=== PATIENT | male | born 1985 | race Caucasian/White ===

== ENCOUNTER 2019-10-19 06:07 | Observation (INO) | payer SELFPAY ==
[2019-10-19] VITALS (11 sets, daily range): BP systolic 128–173; BP diastolic 71–126; PULSE 65–105; RESP 14–23; TEMP 36.4–36.8; O2SAT 92–97; BMI 34.2
--- NOTE | 2019-10-19 06:35 | ED_ITS ---
HPI - Abdominal Pain General: Chief Complaint: Abdominal Pain Stated Complaint: abd pain Time Seen by Provider: 10/19/19 06:16 Review of Systems General: Reports: 10 or more systems reviewed and unremarkable except in HPI and below PFSH ED PFSH: Statuses (acute, chronic, etc) shown below reflect problem list status as previously entered and may not be historically accurate Social History Smoking and tobacco status: current every day smoker Physical Exam Const: COMMON NORMALS: no apparent distress, average body habitus, oriented x3, no limitations, healthy appearing, alert and well nourished HENMT: COMMON NORMALS: normocephalic, head/scalp atraumatic, hearing grossly normal bilaterally, external ears normal, EAC's normal, TM's normal bilaterally, external nose normal, nasal mucous membranes and turbinates normal, moist oral mucous membranes, oropharynx normal, dentition normal and gingiva normal HEAD & SCALP: normocephalic and atraumatic NOSE: external nose normal and nasal mucous membranes and turbinates normal EXTERNAL EAR: Yes external ears normal EXTERNAL AUDITORY CANAL: EAC's normal TYMPANIC MEMBRANE: TM's normal bilaterally Eye: COMMON NORMALS: PERRL, EOMs intact bilaterally, conjunctivae normal, no scleral icterus, no papilledema, normal visual kuhn by confrontation and fundi normal bilaterally CONJUNCTIVA: Yes conjunctivae normal PUPIL: Yes PERRL DIRECT OPHTHALMOSCOPY: Yes no papilledema and Yes fundi normal bilaterally Neck/C-Spine: COMMON NORMALS: full ROM, no lymphadenopathy, supple, no meningeal signs, no JVD, thyroid normal and no carotid bruits THYROID: thyroid normal Chest: COMMONS NORMALS: inspection of chest normal and palpation of chest normal Resp: COMMON NORMALS: normal respiratory effort, no retractions, no use of accessory muscles, clear to auscultation bilaterally and percussion normal AUSCULTATION: clear to auscultation bilaterally PERCUSSION: percussion normal Cardio: COMMON NORMALS: no JVD, regular rate, regular rhythm, S1 normal heart sound, S2 normal heart sound, no gallops, no clicks, no murmurs, no rub and peripheral pulses 2+ throughout RATE: regular rate RHYTHM: regular rhythm HEART SOUNDS: S1 normal and S2 normal PERIPHERAL PULSES: pulses 2+ throughout GI: COMMON NORMALS: normal to inspection, nondistended, normoactive bowel sounds, soft to palpation, no hepatosplenomegaly, no masses and no bruits; negative for non-tender (Midepigastric tenderness to palpation) PALPATION: Yes soft, Yes tender Details: other (Epigastric) and Yes no hepatosplenomegaly : COMMON NORMALS: Yes no CVA tenderness BLADDER/KIDNEY EXAM: Yes no CVA tenderness Back/Pelvis: COMMON NORMALS: no CVA tenderness, thoracic and lumbar spine normal to inspection, no thoracic nor lumbar tenderness, thoraco-lumbar ROM normal and straight leg raise negative bilaterally Extremity: COMMON NORMALS: normal to inspection, full ROM, normal capillary refill, no joint enlargement, no clubbing, cyanosis or edema, no calf tenderness and no pedal edema Neuro: COMMON NORMALS: oriented x3 SENSORIUM/ORIENTATION: Yes alert MENINGEAL SIGNS: Yes no meningeal signs Skin: COMMON NORMALS: no rashes or lesions noted, no wounds, skin turgor normal, no jaundice, no petechiae and no mottling GENERAL SKIN EXAM: no r ashes or lesions noted and turgor normal Procedures Intubation Mg Given: 20 Mg Given: 200 Course Vital Signs: Vital signs: Vital Signs Temperature 97.8 F 10/19/19 06:13 Pulse Rate 105 H 10/19/19 06:13 Respiratory Rate 16 10/19/19 08:02 Blood Pressure 142/103 10/19/19 08:02 Pulse Oximetry 96 10/19/19 08:02 MDM - Abdominal Pain Lab Data: Labs: Lab Results 10/19/19 10/19/19 Range/Units 06:25 06:25 WBC 9.6 (4.0-10.0) 10^3/ uL RBC 5.79 H (4.1-5.3) 10^6/u L Hgb 17.0 H (11.7-16.6) g/dL Hct 49.4 (42.0-52.0) % MCV 85.3 (80-94) fL MCH 29.4 (28.0-34.0) pg MCHC 34.4 (30.0-36.0) g/dL RDW 12.9 (12.1-15.1) % Plt Count 229 (130-400) 10^3/c mm MPV 9.6 (7.4-10.4) fL Neut % (Auto) 57.3 % Lymph % (Auto) 35.6 % Ferry % (Auto) 4.3 % Eos % (Auto) 1.9 % Baso % (Auto) 0.5 % Neut # (Auto) 5.5 (1.8-7.7) 10^3/u L Lymph # (Auto) 3.4 (0.8-4.8) 10^3/u L Ferry # (Auto) 0.4 (0.2-0.9) 10^3/u L Eos # (Auto) 0.2 (0.0-0.8) 10^3/u L Baso # (Auto) 0.1 (0.0-0.1) 10^3/u L Nucleated RBC % (a uto) 0 % Nucleated RBCs # 0.0 /100WBC Sodium 132 L (136-145) mmol/L Potassium 3.7 (3.5-5.1) mmol/L Chloride 95 L (98-107) mmol/L Carbon Dioxide 22 (22-29) mmol/L Anion Gap 18.7 (5-19) BUN 15 (6-20) mg/dL Creatinine 0.7 (0.7-1.2) mg/dL GFR Calculation 128.3 (90-130) mL/min Glucose 368 H (74-109) mg/dL Calcium 9.6 (8.6-10.0) mg/Dl Total Bilirubin 0.5 (0.15-1.2) mg/dL AST 12 (0-40) U/L ALT 20 (0-41) U/L Alkaline Phosphata se 115 (40-130) IU/L Total Protein 7.2 (6.6-8.7) g/dL Albumin 4.5 (3.5-5.2) g/dL Globulin 2.7 (1.3-4.6) g/dL Lipase 551 H (13-60) U/L Discharge Plan Discharge Patient Disposition: Home, Self-Care Clinical Impression: Pancreatitis Qualifiers: Chronicity: acute Pancreatitis type: idiopathic Acute pancreatitis complication: no infection or necrosis Qualified Code(s): K85.00 - Idiopathic acute pancreatitis without necrosis or infection Abdominal pain Qualifiers: Abdominal location: left upper quadrant Qualified Code(s): R10.12 - Left upper quadrant pain Condition: Stable Prescriptions: No Action citalopram 40 mg Tablet 40 mg PO DAILY RF: 0 lisinopril 10 mg Tablet 10 mg PO DAILY RF: 0 Referrals: Rah Link DO [Primary Care Provider] - Patient Instructions: Cholecystitis (ED), Abdominal Pain (ED) Coding Level of Care Code ED Strap Buckler Machine for [facility] Fwd Exam Problem Focused
[2019-10-19 06:37] LABS: Basophils # 0.1 10^3/uL (0.0-0.1); Basophils % 0.5 %; Eosinophils # 0.2 10^3/uL (0.0-0.8); Eosinophils % 1.9 %; Hematocrit 49.4 % (42.0-52.0); Lymphocytes # 3.4 10^3/uL (0.8-4.8); Lymphocytes % 35.6 %; Mean Corpuscular HGB Conc 34.4 g/dL (30.0-36.0); Mean Corpuscular Hemoglobin 29.4 pg (28.0-34.0); Mean Corpuscular Volume 85.3 fL (80-94); Mean Platelet Volume 9.6 fL (7.4-10.4); Monocytes # 0.4 10^3/uL (0.2-0.9); Monocytes % 4.3 %; Neutrophils # 5.5 10^3/uL (1.8-7.7); Neutrophils % 57.3 %; Nucleated Red Blood Cells % 0 %; Platelet Count 229 10^3/cmm (130-400); Red Blood Count 5.79 10^6/uL (4.1-5.3); Red Cell Distribution Width 12.9 % (12.1-15.1); White Blood Count 9.6 10^3/uL (4.0-10.0)
[2019-10-19 06:44] LABS: Alanine Aminotransferase 20 U/L (0-41); Albumin Level 4.5 g/dL (3.5-5.2); Alkaline Phosphatase 115 IU/L (40-130); Anion Gap 18.7 (5-19); Aspartate Amino Transferase 12 U/L (0-40); Blood Urea Nitrogen 15 mg/dL (6-20); Calcium 9.6 mg/Dl (8.6-10.0); Carbon Dioxide 22 mmol/L (22-29); Chloride 95 mmol/L (98-107); Globulin 2.7 g/dL (1.3-4.6); Glomerular Filtration Rate 128.3 mL/min (90-130); Glucose 368 mg/dL (74-109); Potassium 3.7 mmol/L (3.5-5.1); Sodium 132 mmol/L (136-145); Total Bilirubin 0.5 mg/dL (0.15-1.2); Total Protein 7.2 g/dL (6.6-8.7)
[2019-10-19 07:02] LABS: Lipase 551 U/L (13-60)
--- NOTE | 2019-10-19 07:06 | CT_ITS ---
WS: [id number] CT ABDOMEN AND PELVIS WITH CONTRAST HISTORY: Central abdominal pain with nausea and vomiting and diarrhea. TECHNIQUE: Imaging performed of the abdomen and pelvis with IV contrast. Single phase imaging of the abdomen. Coronal and sagittal reformats are submitted. All CT scans at [facility] use at least one of these dose optimization techniques: automated exposure control; mA and/or kV adjustment per patient size (includes targeted exams where dose is matched to clinical indication); or iterativ e reconstruction. IV CONTRAST: Omnipaque 300; 95 mL IV. Oral contrast: No DLP: 1774.63 mGy.cm COMPARISON: 12/20/2017 Lower thorax: Linear atelectasis at the lingula. Heart is normal size. Small hiatal hernia. Liver/biliary system: Mild diffuse hepatic steatosis. Liver is slightly enlarged. No mass or intrahep atic dilatation. Gallbladder: Normal. Pancreas: Mild inflammation around the pancreatic head and uncinate process. No pancreatic head mass. Pancreatic duct is normal. Spleen: Normal. Adrenal glands: Normal. Right kidney: RIGHT kidney is normal size as compared to the prior examinations. No hydronephrosis Left kidney: Normal size kidney. No perinephric stranding or obstruction. No renal stone or mass. Aorta: No aneurysm or significant atherosclerosis. Lymphadenopathy: None. Free fluid: None. GI tract: The appendix is normal. No GI tract obstruction. No evidence for acute diverticulitis. Abdominal wall: No defects, mass or hernia. Pelvis: Urinary bladder is well distended. 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 Bones: Schmorl's node at L3. CT/CT abdomen pelvis w con* [id number] IMPRESSION: 1. Mild inflammation of the pancreatic head. Consider mild acute pancreatitis. Duodenum is closely associated with the pancreatic head and duodenitis should be considered in the differential. 2. No bile duct dilatation. 3. Mild hepatic steatosis and hepatomegaly. 4. No renal obstruction or appendicitis.
--- NOTE | 2019-10-19 07:06 | US_ITS ---
WS: [id number] RIGHT UPPER QUADRANT ULTRASOUND HISTORY: biliary colic COMPARISON: 12/19/2017 Liver: 20.5 cm in length. Heterogeneity and decreased attenuation throughout the liver. Liver is enla rged. No mass or bile duct dilatation. Gallbladder: Normally distended with no stones or wall thickening. No pericholecystic fluid. CBD: 5.4 mm Pancreas: Not visualized. Right kidney: 15.2 cm in length. RIGHT kidney is slightly enlarged but there is no obstruction or per inephric fluid or stranding. Aorta and IVC: Not well visualized. No ascites. US/US gall bladder [id number] IMPRESSION: 1. Normal gallbladder. 2. Poorly visualized pancreas. 3. Moderate hepatomegaly and hepatic steatosis.
[2019-10-19] MEDS: ondansetron 2 mg/ML SDV 2 mL 4 MG IVP (07:14)
[2019-10-19] MEDS: morphine 4 mg/mL SDV 1 mL IVP ×2 (07:15→12:22)
--- NOTE | 2019-10-19 07:24 | PC.NURSE ---
Ultrasound in room
[2019-10-19] MEDS: iohexol 300 mg/mL 100 mL Btl IV (07:49)
--- NOTE | 2019-10-19 08:13 | PC.NURSE ---
Pt placed in a gown, allergy band applied.
--- NOTE | 2019-10-19 08:16 | PC.NURSE ---
DR Mayorga, Hospitalist, in room
--- NOTE | 2019-10-19 08:32 | PC.NURSE ---
Ice chips to pt, per Dr. Melgar's okay. Pt informed about reason for delay with admission. No needs at this time. Pt resting in bed.
--- NOTE | 2019-10-19 08:38 | P.HP_ITS ---
Providers/Chief Complaint Primary Care Provider: Rah Link DO Chief Complaint: abd pain History of Present Illness Jarred Dangelo is a 34 year old male that presented to the emergency department today for abdominal pain. Patient reported increasing abdominal pain over the past 2 to 3 days. He stated he was been having nausea, vomiting and diarrhea for the past 3 days that became severely worse last night. He stated that the abdominal pain is located in the center of his abdomen and radiates to his back. He reports several episodes of vomiting, several episodes of diarrhea, has been drinking fluids but unable to keep up. Patient reported that he is a diabetic, not on any medications currently, had been on Byetta and recently stopped taking the medication within the past week. Patient reports that he is on oral water, no other sick contacts, family members at home have not been sick. 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 Patient was seen and evaluated in the emergency department noted to have pancreatitis and admitted for further evaluation and treatment. Review of Systems Const: Denies: fever or chills Eyes: Denies: change in vision ENMT: Denies: nasal congestion Card: Denies: chest pain, palpitations or edema Resp: Denies: shortness of breath, productive cough or coughing up blood GI: Reports: abdominal pain, nausea, vomiting, diarrhea and constipation; Denies: blood in stool or black tarry stool : Denies: painful urination or blood in urine Musc: Denies: extremity pain or muscle cramps Skin/Breast: Denies: rash or new lesion Neuro: Denies: headache or dizziness Psych: Denies: anxiety or depression Endo: Denies: excessive urination or hot flashes Olvin/Lymph: Denies: easy bruising or easy bleeding Medications/Allergies Home Medications Medication Instructions Recorded Confirmed Last Taken Type citalopram 40 mg PO DAILY 10/19/19 10/19/19 10/19/19 History epinephrine [EpiPen 2-Sha] See Rx Instructions .ROUTE .COMPLEX 10/19/19 10/19/19 Unknown History exenatide [Byetta] 10 mcg SUBCUT BID 10/19/19 10/19/19 Unknown History lisinopril 10 mg PO DAILY 10/19/19 10/19/19 10/19/19 History Allergies Allergy/AdvReac Type Severity Reaction Status Date / Time No Known Allergies Allergy Verified 10/19/19 06:18 PFSH Acute PFSH: Statuses (acute, chronic, etc) shown below reflect problem list status as previously entered and may not be historically accurate Medical History (Updated 10/19/19 @ 09:00 by Chaparrita Mayorga DO) Depression (Acute) Diabetes mellitus type 2 in obese (Acute) Hypertension (Acute) Surgical History (Updated 10/19/19 @ 08:43 by Chaparrita Mayorga DO) History of incision and drainage (Acute) Left forearm 2017 Hx of cardiac cath (Acute) 02/2014 Family History (Updated 10/19/19 @ 08:43 by Chaparrita Mayorga DO) Father Diabetes Mother Diabetes Social History (Updated 10/19/19 @ 08:43 by Chaparrita Mayorga DO) Smoking and tobacco status: heavy tobacco smoker Substance/Drug Use: former Vitals/I&O/Wt Last Vital Signs Temp 97.8 F 10/19/19 06:13 Pulse 105 H 10/19/19 06:13 Resp 16 10/19/19 08:02 BP 142/103 10/19/19 08:02 Pulse Ox 96 10/19/19 08:02 Weight last 48 hrs Weight 117.934 kg Physical Exam Const: COMMON NORMALS: oriented x3 and alert GENERAL APPEARANCE: cooperative ORIENTATION/CONSCIOUSNESS: Yes awake, Yes oriented to person, Yes oriented to place and Yes oriented to time HENMT: COMMON NORMALS: normocephalic and head/scalp atraumatic HEAD & SCALP: normocephalic and atraumatic Eye: COMMON NORMALS: PERRL PUPIL: Yes PERRL Resp: COMMON NORMALS: normal respiratory effort and clear to auscultation bilaterally EFFORT & INSPECTION: Yes able to speak in complete sentences AUSCULTATION: clear to auscultation bilaterally, no rhonchi and no wheezes Cardio: COMMON NORMALS: regular rate, regular rhythm and no murmurs RATE: regular rate RHYTHM: regular rhythm GI: INSPECTION: No abdominal distension AUSCULTATION: Yes normoactive bowel sounds PALPATION: Yes soft and Yes tender Details: other (epigastric region) : COMMON NORMALS: Yes no CVA tenderness BLADDER/KIDNEY EXAM: Yes no CVA tenderness Back/Pelvis: COMMON NORMALS: no CVA tenderness Extremity: COMMON NORMALS: no clubbing, cyanosis or edema and no calf tenderness Neuro: COMMON NORMALS: oriented x3, CN's II-XII intact bilaterally, moves all extremities and no focal motor deficits SENSORIUM/ORIENTATION: Yes alert, Yes oriented to person, Yes oriented to place and Yes oriented to time SPEECH: speech normal Psych: COMMON NORMALS: mental status grossly normal and cooperative Skin: COMMON NORMALS: no rashes or lesions noted GENERAL SKIN EXAM: no rashes or lesions noted Data Imaging^: US: My impression: Reviewed, report as read by radiologist: Radiologist's impression: IMPRESSION: 1. Normal gallbladder. 2. Poorly visualized pancreas. 3. Moderate hepatomegaly and hepatic steatosis. CT Abd/Pel: Radiologist's impression: IMPRESSION: 1. Mild inflammation of the pancreatic head. Consider mild acute pancreatitis. Duodenum is closely associated with the pancreatic head and duodenitis should be considered in the differential. 2. No bile duct dilatation. 3. Mild hepatic steatosis and hepatomegaly. 4. No renal obstruction or appendicitis. A&P Assessment and plan (1) Pancreatitis: Placed on observation N.p.o. status with ice chips Aggressive IV fluids Ultrasound of the gallbladder and CT scan of the abdomen and pelvis as noted above. 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 Recently on beta which was likely contributing to episode of pancreatitis, he has discontinued due to side effects We will place on sliding scale insulin at this time Status: Acute Code(s): E11.69 - Type 2 diabetes mellitus with other specified complication; E66.9 - Obesity, unspecified (3) Hypertension: Continue home lisinopril Status: Acute Qualifiers: Hypertension type: essential hypertension Qualified Code(s): I10 - Essential (primary) hypertension Code(s): I10 - Essential (primary) hypertension (4) Depression: Continue home citalopram Status: Acute Qualifiers: Depression Type: unspecified Qualified Code(s): F32.9 - Major depressive disorder, single episode, unspecified Code(s): F32.9 - Major depressive disorder, single episode, unspecified Attestations Medical Necessity Statement*: Observation admission due to pancreatitis with poorly controlled diabetes mellitus. Expected stay less than 2 midnights Coding Level of Care Code Acute Centrifugal Chiller Technician for [facility] Fwd Diagnoses Pancreatitis K85.00 Acute pancreatitis complication: no infection or necrosis Chronicity: acute Pancreatitis type: idiopathic Diabetes mellitus type 2 in obese E11.69; E66.9 Hypertension I10 Hypertension type: essential hypertension Depression F32.9 Depression Type: unspecified
--- NOTE | 2019-10-19 09:26 | PC.NURSE ---
Fan placed in pt's room per pt's request. Pt resting in bed, no needs at this time.
[2019-10-19] MEDS: docusate sodium 100 mg Capsule PO (10:11)
[2019-10-19] MEDS: sodium chloride 0.9% 1,000 ML 100 ML IV (10:14)
[2019-10-19 11:01] LABS: Estmated Average Glucose 246; Hemoglobin A1C 10.2 % (4.0-6.0)
[2019-10-19 11:36] LABS: Glucose Point of Care 283 mg/dL (70-110)
[2019-10-19 17:02] LABS: Glucose Point of Care 219 mg/dL (70-110)
[2019-10-19] MEDS: insulin glargine 100 units/1 mL 10 UNIT SUBCUT (21:33)
[2019-10-19 21:34] LABS: Glucose Point of Care 237 mg/dL (70-110)
[2019-10-20] VITALS: BP 144/88; PULSE 72; RESP 16; TEMP 36.8; O2SAT 95
[2019-10-20 00:43] VITALS: PULSE 79; O2SAT 95
[2019-10-20 04:00] VITALS: BP 135/87; PULSE 72; RESP 18; TEMP 36.7; O2SAT 94
[2019-10-20 05:49] LABS: Alanine Aminotransferase 18 U/L (0-41); Albumin Level 4.1 g/dL (3.5-5.2); Alkaline Phosphatase 107 IU/L (40-130); Anion Gap 16.3 (5-19); Aspartate Amino Transferase 13 U/L (0-40); Blood Urea Nitrogen 12 mg/dL (6-20); Calcium 9.5 mg/Dl (8.6-10.0); Carbon Dioxide 24 mmol/L (22-29); Chloride 99 mmol/L (98-107); Globulin 2.7 g/dL (1.3-4.6); Glomerular Filtration Rate 189.2 mL/min (90-130); Glucose 268 mg/dL (74-109); Potassium 3.3 mmol/L (3.5-5.1); Sodium 136 mmol/L (136-145); Total Bilirubin 0.7 mg/dL (0.15-1.2); Total Protein 6.8 g/dL (6.6-8.7)
[2019-10-20] MEDS: sodium chloride 0.9% 1,000 ML 100 ML IV (05:50)
[2019-10-20 07:02] LABS: Glucose Point of Care 246 mg/dL (70-110)
[2019-10-20 07:31] VITALS: BP 137/93; PULSE 76; RESP 18; TEMP 36.7; O2SAT 95
[2019-10-20 07:46] VITALS: PULSE 76; O2SAT 95
[2019-10-20] MEDS: citalopram 20 mg Tablet 40 MG PO (08:27)
[2019-10-20] MEDS: lisinopril 10 mg Tablet PO (08:27)
--- NOTE | 2019-10-20 11:24 | P.DS_ITS ---
Discharge Providers Date of Admission: 10/19/19 08:02 Date of Discharge: 10/20/19 Attending Provider at Admission: Chaparrita Mayorga MD Attending Provider at Discharge: Chaparrita Mayorga MD Primary Care Provider: DO Rafael Mendez Diagnoses at Discharge Discharge Diagnosis (1) Pancreatitis: Status: Acute Problem details: Abdominal pain and nausea resolved Believed to be secondary to Byetta Qualifiers: Acute pancreatitis complication: no infection or necrosis Chronicity: acute Pancreatitis type: idiopathic Qualified Code(s): K85.00 - Idiopathic acute pancreatitis without necrosis or infection (2) Diabetes mellitus type 2 in obese: Status: Acute Problem details: Unable to take insulin due to occupational reasons Patient would like to avoid other injectable medications Intolerant of metformin in the past Due to history of pancreatitis will be cautious with medications Discharge to home with glipizide 5 mg daily and increase as directed by primary care provider for further blood glucose control (3) Hypertension: Status: Acute Problem details: Continue lisinopril 10 mg daily Qualifiers: Hypertension type: essential hypertension Qualified Code(s): I10 - Essential (primary) hypertension (4) Depression: Status: Acute Problem details: Continue home citalopram 40 mg daily Qualifiers: Depression Type: unspecified Qualified Code(s): F32.9 - Major depressive disorder, single episode, unspecified Reason for Visit Reason for Visit: Reason For Visit: Pancreatitis Hospital Course Hospital Course: Patient was seen and evaluated in the emergency department due to abdominal pain with nausea and vomiting. He had CT scan of the abdomen performed and labs performed which showed concern for acute pancreatitis. Patient reported that he had been on Byetta recently and recently stopped this medication due to intolerance.Patient was kept n.p.o. given IV fluids and continued to show gradual improvement. On date of discharge patient stated that he was no longer having any abdominal pain or nausea and requested oral diet. Pain was started on a clear liquid diet and gradually increase to a full liquid diet, low-fat. Patient tolerated this well without any recurrence of abdominal pain, no nausea or vomiting. Discussed with patient on date of discharge to continue with a low-fat diet and gradually increase diet as tolerated and the need for close follow-up with primary care provider to continue to monitor blood sugars closely. Patient verbalized understanding and agreed with plan Discharge Summary: Hospital course as above. Plan for discharge to home with close follow-up with primary care provider in 3 to 5 days Physical Exam Const: COMMON NORMALS: oriented x3 and alert GENERAL APPEARANCE: cooperative ORIENTATION/CONSCIOUSNESS: Yes awake, Yes oriented to person, Yes oriented to place and Yes oriented to time HENMT: COMMON NORMALS: normocephalic and head/scalp atraumatic HEAD & SCALP: normocephalic and atraumatic Eye: COMMON NORMALS: PERRL PUPIL: Yes PERRL Resp: COMMON NORMALS: normal respiratory effort and clear to auscultation bilaterally EFFORT & INSPECTION: Yes able to speak in complete sentences AUSCULTATION: clear to auscultation bilaterally, no rhonchi and no wheezes Cardio: COMMON NORMALS: regular rate, regular rhythm and no murmurs RATE: regular rate RHYTHM: regular rhythm GI: COMMON NORMALS: soft to palpation INSPECTION: No abdominal distension AUSCULTATION: Yes normoactive bowel sounds PALPATION: Yes soft and No tender : COMMON NORMALS: Yes no CVA tenderness BLADDER/KIDNEY EXAM: Yes no CVA tenderness Back/Pelvis: COMMON NORMALS: no CVA tenderness Extremity: COMMON NORMALS: no clubbing, cyanosis or edema and no calf tenderness Neuro: COMMON NORMALS: oriented x3, CN's II-XII intact bilaterally, moves all extremities and no focal motor deficits SENSORIUM/ORIENTATION: Yes alert, Yes oriented to person, Yes oriented to place and Yes oriented to time SPEECH: speech normal Psych: COMMON NORMALS: mental status grossly normal and cooperative Skin: COMMON NORMALS: no rashes or lesions noted GENERAL SKIN EXAM: no rashes or lesions noted Discharge Data Data Completed and Pending: Completed Studies During Hospitalization Category Date Time Status CT abdomen pelvis w con* [id number] Urge nt Cat Scan 10/19/19 07:06 Completed US gall bladder 7 [id number] Urgent Ultrasound 10/19/19 07:06 Completed Labs from last 24 hours 10/20/19 10/20/19 10/19/19 06:30 04:29 21:07 Sodium 136 Potassium 3.3 L Chloride 99 Carbon Dioxide 24 Anion Gap 16.3 BUN 12 Creatinine 0.5 L GFR Calculation 189.2 H Glucose 268 H POC Glucose 246 237 Estimat Average Gl ucose Calcium 9.5 Total Bilirubin 0.7 AST 13 ALT 18 Alkaline Phosphata se 107 Total Protein 6.8 Albumin 4.1 Globulin 2.7 10/19/19 10/19/19 10/19/19 16:41 10:58 06:25 Sodium Potassium Chloride Carbon Dioxide Anion Gap BUN Creatinine GFR Calculation Glucose POC Glucose 219 283 Estimat Average Gl ucose 246 Calcium Total Bilirubin AST ALT Alkaline Phosphata se Total Protein Albumin Globulin Vitals: Last Vital Signs Temp 98.1 F 10/20/19 07:31 Pulse 76 10/20/19 07:46 Resp 18 10/20/19 07:31 BP 137/93 10/20/19 07:31 Pulse Ox 95 10/20/19 07:46 Discharge Plan Discharge Patient Disposition: Home, Self-Care Condition: Stable Prescriptions: New glipizide 5 mg tablet 5 mg PO DAILY Qty: 30 RF: 0 Continued citalopram 40 mg Tablet 40 mg PO DAILY RF: 0 lisinopril 10 mg Tablet 10 mg PO DAILY RF: 0 EpiPen 2-Sha 0.3 mg/0.3 mL Auto-Injector See Rx Instructions .ROUTE .COMPLEX RF: 0 Discontinued Byetta 10 mcg/dose(250 mcg/mL) 2.4 mL pen injector 10 mcg SUBCUT BID RF: 0 Discharge Orders: Discharge Order (Routine); Ordered 10/20/19 Ordered By: Chaparrita Mayorga Referrals: Rah Link DO [Primary Care Provider] - Discharge Diet: Advance diet as tolerated, low-fat, diabetic diet Discharge Activity: Increase activity as tolerated Activity Restrictions/Additional Instructions: Strongly recommend a low-fat diet, gradually increase as tolerated. Continue with diabetic diet. Strongly encouraged tobacco cessation Follow-up with primary care provider in 3 to 5 days. Please keep a blood glucose log to present to her at that time. Started on glipizide 5 mg daily, this will need to be adjusted based on blood glucose readings by her primary care provider. Follow-up with primary care provider, Rafael Payne in 3-5 days Discharge Attestations Time Spent in Discharge Care*: greater than 30 min Quality Metrics Clinical Quality Measures During this hospital stay, did patient experience: None Coding Level of Care Code Acute Communications Technician for [employer] Fwd Diagnoses Pancreatitis K85.00 Acute pancreatitis complication: no infection or necrosis Chronicity: acute Pancreatitis type: idiopathic Diabetes mellitus type 2 in obese E11.69; E66.9 Hypertension I10 Hypertension type: essential hypertension Depression F32.9 Depression Type: unspecified
[2019-10-20 11:51] VITALS: BP 131/84; PULSE 87; RESP 16; TEMP 36.6; O2SAT 95
[2019-10-20 12:19] LABS: Glucose Point of Care 308 mg/dL (70-110)
== END 2019-10-20 12:28 | disposition home or self-care (01) ==
LOC: ER 07:31 → MEDSURG 09:09
PROVIDERS: Admitting Provider Family Medicine; Emergency Provider Family Medicine; Family Provider Electrodiagnostic Medicine; PCP Electrodiagnostic Medicine; Visit Provider Family Medicine
DX: K85.00 Idiopathic acute pancreatitis without necrosis or infection (principal); I10 Essential (primary) hypertension; E11.9 Type 2 diabetes mellitus without complications; F32.9 Major depressive disorder, single episode, unspecified; Z83.3 Family history of diabetes mellitus; F17.210 Nicotine dependence, cigarettes, uncomplicated; E66.9 Obesity, unspecified; Z68.33 Body mass index [BMI] 33.0-33.9, adult
CPT/HCPCS: 36415; 36416; 74177; 76705; 80053; 82962; 83036; 83690; 85025; 96360; 96361; 96372; 96374; 96375; 96376; 99281; 99285; G0378; J1815; J2270; J2405; J7030; Q9967

== ENCOUNTER 2019-10-24 03:36 | Emergency (ER) | payer SELFPAY ==
[2019-10-24 03:41] VITALS: BP 154/120; PULSE 99; RESP 17; TEMP 36.7; O2SAT 98; BMI 34.2
[2019-10-24 04:39] LABS: Basophils % 0.4 %; Eosinophils # 0.2 10^3/uL (0.0-0.8); Eosinophils % 1.6 %; Hematocrit 46.8 % (42.0-52.0); Hemoglobin 15.7 g/dL (11.7-16.6); Lymphocytes # 3.1 10^3/uL (0.8-4.8); Lymphocytes % 31.1 %; Mean Corpuscular HGB Conc 33.5 g/dL (30.0-36.0); Mean Corpuscular Hemoglobin 27.9 pg (28.0-34.0); Mean Corpuscular Volume 83.3 fL (80-94); Mean Platelet Volume 9.3 fL (7.4-10.4); Monocytes # 0.6 10^3/uL (0.2-0.9); Monocytes % 5.7 %; Neutrophils % 60.9 %; Nucleated Red Blood Cells % 0 %; Platelet Count 260 10^3/cmm (130-400); Red Blood Count 5.62 10^6/uL (4.1-5.3); Red Cell Distribution Width 12.9 % (12.1-15.1); White Blood Count 9.8 10^3/uL (4.0-10.0)
[2019-10-24 04:50] VITALS: BP 113/72; PULSE 86
[2019-10-24 05:12] LABS: Alanine Aminotransferase 104 U/L (0-41); Albumin Level 4.5 g/dL (3.5-5.2); Alkaline Phosphatase 154 IU/L (40-130); Amylase 104 U/L (28-100); Anion Gap 19.6 (5-19); Aspartate Amino Transferase 152 U/L (0-40); Blood Urea Nitrogen 14 mg/dL (6-20); Calcium 9.7 mg/Dl (8.6-10.0); Carbon Dioxide 19 mmol/L (22-29); Chloride 97 mmol/L (98-107); Globulin 2.8 g/dL (1.3-4.6); Glomerular Filtration Rate 153.3 mL/min (90-130); Glucose 341 mg/dL (74-109); Lipase 190 U/L (13-60); Potassium 3.6 mmol/L (3.5-5.1); Sodium 132 mmol/L (136-145); Total Bilirubin 0.6 mg/dL (0.15-1.2); Total Protein 7.3 g/dL (6.6-8.7)
[2019-10-24 05:40] LABS: Add Urine Microscopic? YES; Bacteria Urine 1+; Bilirubin Urine Neg (NEGATIVE); Blood Urine Neg (Negative); Glucose Urine UA 4+ (Normal); Ketones Urine Negative (Negative); Leukocyte Esterase Urine Negative (Negative); Nitrate Urine Negative (Negative); Protein Urine 2+ (Negative); RBC Urine 0-4 /hpf (0-2); Specific Gravity, Urine 1.025 (1.005-1.030); Squamous Epithelial Cell Urine 0-4 (0-5); Urine Appearance Clear (CLEAR); Urine Color Yellow (Yellow); Urobilinogen Urine 1 mg/dL (Negative); pH Urine 5 (5-7)
[2019-10-24 05:44] LABS: Amphetamines Screen Urine Negative (Negative); Barbiturates Screen Urine Positive (Negative); Benzodiazepines Screen Urine Negative (Negative); Cocaine Screen Urine Negative (Negative); Opiate Screen Urine Negative (Negative); PCP Screen Urine Negative (Negative); THC Screen Urine Negative (Negative)
--- NOTE | 2019-10-24 06:42 | USR_ITS ---
PROCEDURE INFORMATION: Exam: US Abdomen Complete Exam date and time: 10/24/2019 7:38 AM Age: 34 years old Clinical indication: Abdominal pain; Epigastric; Additional info: RIGHT upper quadrant abdominal pain TECHNIQUE: Imaging protocol: Real-time ultrasound of the abdomen with image documentation. COMPARISON: US gall bladder [id number] 10/19/2019 7:08 AM FINDINGS: Liver: The liver demonstrates increased echogenicity with decreased visualization of periportal fat with mild sound attenuation. The liver measures 20.7 cm in the midclavicular plane. Gallbladder: The gallbladder wall measures 2.2 mm. No gallstones, luminal enlargement or pericholecystic fluid. Common bile duct: The common bile duct measures 4.7 mm. Pancreas: Visualized pancreas is unremarkable. Right kidney: The RIGHT kidney measures 15.6 x 6.1 x 8.0 cm. Unremarkable. The renal cortex measures 1.6 cm. A brief color Doppler examination of the RIGHT kidney was performed showing normal color shifts. Left kidney: The LEFT kidney measures 15.1 x 8.3 x 6.0 cm. Unremarkable. The renal cortex measures 2.1 cm. A brief color Doppler examination of the LEFT kidney was performed showing normal color shifts. Spleen: The spleen measures 15.3 cm. Otherwise unremarkable. Aorta: The proximal abdominal aorta measures 2.3 cm. The mid abdominal aorta measures 1.8 cm. The distal infrarenal abdominal aorta measures 1.6 cm. Inferior vena cava: Normal. Portal venous: A brief color and pulsed Doppler examination of the portal vein was performed showing normal hepatopedal flow. US/US abdomen complete* [id number] IMPRESSION: 1. Fatty infiltration of the liver. 2. Mild hepatomegaly. 3. Mild splenomegaly.
--- NOTE | 2019-10-24 06:51 | ED_ITS ---
HPI - Abdominal Pain General: Chief Complaint: Abdominal Pain Stated Complaint: RIGHT SIDED ABD PAIN Time Seen by Provider: 10/24/19 06:32 History of Present Illness: HPI narrative: Patient is a 34-year-old male who is well-known to this department. He has a history of uncontrolled diabetes with recent changes to his medicines. Was recently discharged on the eighth this month for acute pancreatitis. States his pain today is different it is right upper quadrant does not radiate is been going on since yesterday afternoon waxes and wanes in intensity but does not go away. No worse with food or activity. Scribe describes the pain as dull no better or worse with food no better or worse with home medicines. Review of Systems Narrative: Denies fevers chills vision changes headaches altered mental status neck pain chest pain shortness of breath cough dysuria diarrhea joint pain PFSH ED PFSH: Statuses (acute, chronic, etc) shown below reflect problem list status as previously entered and may not be historically accurate Medical History (Updated 10/24/19 @ 08:23 by Guicho Grossman MD) Depression (Acute) Continue home citalopram 40 mg daily Diabetes mellitus type 2 in obese (Acute) Unable to take insulin due to occupational reasons Patient would like to avoid other injectable medications Intolerant of metformin in the past Due to history of pancreatitis will be cautious with medications Discharge to home with glipizide 5 mg daily and increase as directed by primary care provider for further blood glucose control Hypertension (Acute) Continue lisinopril 10 mg daily Surgical History (Updated 10/19/19 @ 08:43 by Chaparrita Mayorga DO) History of incision and drainage (Acute) Left forearm 2017 Hx of cardiac cath (Acute) 02/2014 Family History (Updated 10/19/19 @ 08:43 by Chaparrita Mayorga DO) Father Diabetes Mother Diabetes Social History (Updated 10/19/19 @ 08:43 by Chaparrita Mayorga DO) Smoking and tobacco status: current every day smoker Physical Exam Const: COMMON NORMALS: no apparent distress, oriented x3, no limitations, healthy appearing and well nourished HENMT: OTHER: Denies fevers chills chest pain vomiting rash headache change in mental status or easy bruising Chest: COMMONS NORMALS: inspection of chest normal and palpation of chest normal Resp: COMMON NORMALS: normal respiratory effort, no retractions, no use of accessory muscles, clear to auscultation bilaterally and percussion normal AUSCULTATION: clear to auscultation bilaterally PERCUSSION: percussion normal Cardio: COMMON NORMALS: regular rate, regular rhythm, no murmurs and peripheral pulses 2+ throughout RATE: regular rate RHYTHM: regular rhythm PERIPHERAL PULSES: pulses 2+ throughout GI: COMMON NORMALS: normal to inspection, nondistended, normoactive bowel sounds and soft to palpation INSPECTION: Yes normal to inspection PALPATION: Yes soft and Yes tender Details: RUQ PERCUSSION: normal to percussion RECTAL EXAM: Yes deferred Extremity: COMMON NORMALS: normal to inspection, full ROM, normal capillary refill, no clubbing, cyanosis or edema, no calf tenderness and no pedal edema Neuro: COMMON NORMALS: oriented x3, CN's II-XII intact bilaterally, moves all extremities, no focal motor deficits and no sensory deficits noted Skin: COMMON NORMALS: no rashes or lesions noted and no wounds GENERAL SKIN EXAM: no rashes or lesions noted Course ED course: Patient's labs are relatively un-concerning for his chronic condition. No severe elevation in lipase or LFTs. Pain is moderate and his vital signs are normal. Ultrasound not show any abnormalities of any emergent need. Does have some fatty liver but this would be normal for somebody with his diabetes and his habitus. We will discharge him and have him follow-up with his primary care provider. At this point his work-up has been benign I suspect this is not serious etiology and he can follow-up with his primary care physician Vital Signs: Vital signs: Vital Signs Temperature 98.1 F 10/24/19 03:41 Pulse Rate 86 10/24/19 04:50 Respiratory Rate 17 10/24/19 03:41 Blood Pressure 113/72 10/24/19 04:50 Pulse Oximetry 98 10/24/19 03:41 MDM - Abdominal Pain MDM Narrative: Medical decision making narrative: Patient is a 34-year-old male with uncontrolled diabetes and frequent pancreatitis. Recently discharged for same. This pain is different and is in the right lower quadrant. Labs seem to be fairly normal for him but he is fairly tender in the right upper quadrant so we will give him pain medicine and check a right upper quadrant ultrasound. He is well-appearing nontoxic vital signs are normal Lab Data: Labs: Lab Results 10/24/19 10/24/19 10/24/19 Range/Units 04:26 04:26 05:02 WBC 9.8 (4.0-10.0) 10^3/ uL RBC 5.62 H (4.1-5.3) 10^6/u L Hgb 15.7 (11.7-16.6) g/dL Hct 46.8 (42.0-52.0) % MCV 83.3 (80-94) fL MCH 27.9 L (28.0-34.0) pg MCHC 33.5 (30.0-36.0) g/dL RDW 12.9 (12.1-15.1) % Plt Count 260 (130-400) 10^3/c mm MPV 9.3 (7.4-10.4) fL Neut % (Auto) 60.9 % Lymph % (Auto) 31.1 % [place] % (Auto) 5.7 % Eos % (Auto) 1.6 % Baso % (Auto) 0.4 % Neut # (Auto) 6.0 (1.8-7.7) 10^3/u L Lymph # (Auto) 3.1 (0.8-4.8) 10^3/u L [place] # (Auto) 0.6 (0.2-0.9) 10^3/u L Eos # (Auto) 0.2 (0.0-0.8) 10^3/u L Baso # (Auto) 0.0 (0.0-0.1) 10^3/u L Nucleated RBC % (a uto) 0 % Nucleated RBCs # 0.0 /100WBC Sodium 132 L (136-145) mmol/L Potassium 3.6 (3.5-5.1) mmol/L Chloride 97 L (98-107) mmol/L Carbon Dioxide 19 L (22-29) mmol/L Anion Gap 19.6 H (5-19) BUN 14 (6-20) mg/dL Creatinine 0.6 L (0.7-1.2) mg/dL GFR Calculation 153.3 H (90-130) mL/min Glucose 341 H (74-109) mg/dL Calcium 9.7 (8.6-10.0) mg/Dl Total Bilirubin 0.6 (0.15-1.2) mg/dL AST 152 H (0-40) U/L ALT 104 H (0-41) U/L Alkaline Phosphata se 154 H (40-130) IU/L Total Protein 7.3 (6.6-8.7) g/dL Albumin 4.5 (3.5-5.2) g/dL Globulin 2.8 (1.3-4.6) g/dL Amylase 104 H (28-100) U/L Lipase 190 H (13-60) U/L Urine Color Yellow (Yellow) Urine Appearance Clear (CLEAR) Urine pH 5 (5-7) Ur Specific Gravit y 1.025 (1.005-1.030) Urine Protein 2+ H (Negative) Urine Glucose (UA) 4+ H (Normal) Urine Ketones Negative (Negative) Urine Occult Blood Neg (Negative) Urine Nitrate Negative (Negative) Urine Bilirubin Neg (NEGATIVE) Urine Urobilinogen 1 H (Negative) mg/dL Ur Leukocyte Dimple ase Negative (Negative) Urine RBC 0-4 H (0-2) /hpf Urine WBC 5-10 H (0-5) /hpf Ur Squamous Epith Cells 0-4 H (0-5) Urine Bacteria 1+ H (NONE) Urine Opiates Scre en (Negative) ng/mL Ur Barbiturates Sc reen (Negative) ng/mL Ur Phencyclidine S crn (Negative) ng/mL Ur Amphetamines Sc reen (Negative) ng/mL U Benzodiazepines Scrn (Negative) ng/mL Urine Cocaine Scre en (Negative) ng/mL U Marijuana (THC) Screen (Negative) ng/mL 10/24/19 Range/Units 05:02 WBC (4.0-10.0) 10^3/ uL RBC (4.1-5.3) 10^6/u L Hgb (11.7-16.6) g/dL Hct (42.0-52.0) % MCV (80-94) fL MCH (28.0-34.0) pg MCHC (30.0-36.0) g/dL RDW (12.1-15.1) % Plt Count (130-400) 10^3/c mm MPV (7.4-10.4) fL Neut % (Auto) % Lymph % (Auto) % [place] % (Auto) % Eos % (Auto) % Baso % (Auto) % Neut # (Auto) (1.8-7.7) 10^3/u L Lymph # (Auto) (0.8-4.8) 10^3/u L [place] # (Auto) (0.2-0.9) 10^3/u L Eos # (Auto) (0.0-0.8) 10^3/u L Baso # (Auto) (0.0-0.1) 10^3/u L Nucleated RBC % (a uto) % Nucleated RBCs # /100WBC Sodium (136-145) mmol/L Potassium (3.5-5.1) mmol/L Chloride (98-107) mmol/L Carbon Dioxide (22-29) mmol/L Anion Gap (5-19) BUN (6-20) mg/dL Creatinine (0.7-1.2) mg/dL GFR Calculation (90-130) mL/min Glucose (74-109) mg/dL Calcium (8.6-10.0) mg/Dl Total Bilirubin (0.15-1.2) mg/dL AST (0-40) U/L ALT (0-41) U/L Alkaline Phosphata se (40-130) IU/L Total Protein (6.6-8.7) g/dL Albumin (3.5-5.2) g/dL Globulin (1.3-4.6) g/dL Amylase (28-100) U/L Lipase (13-60) U/L Urine Color (Yellow) Urine Appearance (CLEAR) Urine pH (5-7) Ur Specific Gravit y (1.005-1.030) Urine Protein (Negative) Urine Glucose (UA) (Normal) Urine Ketones (Negative) Urine Occult Blood (Negative) Urine Nitrate (Negative) Urine Bilirubin (NEGATIVE) Urine Urobilinogen (Negative) mg/dL Ur Leukocyte Dimple ase (Negative) Urine RBC (0-2) /hpf Urine WBC (0-5) /hpf Ur Squamous Epith Cells (0-5) Urine Bacteria (NONE) Urine Opiates Scre en Negative (Negative) ng/mL Ur Barbiturates Sc reen Positive H (Negative) ng/mL Ur Phencyclidine S crn Negative (Negative) ng/mL Ur Amphetamines Sc reen Negative (Negative) ng/mL U Benzodiazepines Scrn Negative (Negative) ng/mL Urine Cocaine Scre en Negative (Negative) ng/mL U Marijuana (THC) Screen Negative (Negative) ng/mL Imaging Data ^: US: Radiologist's impression: IMPRESSION: 1. Fatty infiltration of the liver. 2. Mild hepatomegaly. 3. Mild splenomegaly. Dictated By:Ismael Lindo MD Signed By:Ismael Lindoigned Date/Time:10/24/19 0800 Discharge Plan Discharge Patient Disposition: Home, Self-Care Clinical Impression: Diabetes mellitus type 2 in obese, Abdominal pain Condition: Stable Prescriptions: No Action citalopram 40 mg Tablet 40 mg PO DAILY RF: 0 lisinopril 10 mg Tablet 10 mg PO DAILY RF: 0 epinephrine [EpiPen 2-Sha] 0.3 mg/0.3 mL Auto-Injector See Rx Instructions .ROUTE .COMPLEX RF: 0 glipizide 5 mg tablet 5 mg PO DAILY Qty: 30 RF: 0 Discharge Orders: Discharge Order (Routine); Ordered 10/24/19 Ordered By: Guicho Grossman Referrals: Rah Link DO [Primary Care Provider] - Discharge Diet: Advance as tolerated Discharge Activity: Resume usual activity Patient Instructions: Cholecystitis (ED), Abdominal Pain (ED) Activity Restrictions/Additional Instructions: Follow-up with your primary care provider next week as scheduled. Return with the severe abdominal pain, vomiting does not allow you to keep any food or fluids down for 36 hours. Fever over 103.1 or any other new or concerning symptoms. Make sure you are advancing her diet slowly regulating your carbohydrate intake. And take your medicines as prescribed Coding Level of Care Code ED Material Checker for Chg Fwd Exam Problem Focused
[2019-10-24] MEDS: sodium chloride 0.9% 1,000 ML 999 ML IV (07:04)
[2019-10-24 08:39] VITALS: BP 148/87; PULSE 87; RESP 14; O2SAT 97
== END 2019-10-24 08:40 | disposition home or self-care (01) ==
PROVIDERS: Emergency Medicine; Emergency Provider Family Medicine; Family Provider Electrodiagnostic Medicine; PCP Electrodiagnostic Medicine
DX: R10.9 Unspecified abdominal pain (principal); E11.9 Type 2 diabetes mellitus without complications; E66.9 Obesity, unspecified; I10 Essential (primary) hypertension; F17.210 Nicotine dependence, cigarettes, uncomplicated; Z79.84 Long term (current) use of oral hypoglycemic drugs
CPT/HCPCS: 76700; 80053; 80307; 81003; 82150; 83690; 85025; 96360; 99282; J7030

== ENCOUNTER → 2020-01-26 14:21 | Outpatient (BNVA) | payer SELFPAY | PROVIDERS: Family Provider Electrodiagnostic Medicine; PCP Electrodiagnostic Medicine; Visit Provider Registered Nurse | DX: E11.9 Type 2 diabetes mellitus without complications (principal); E78.5 Hyperlipidemia, unspecified; I10 Essential (primary) hypertension; F32.9 Major depressive disorder, single episode, unspecified; E11.69 Type 2 diabetes mellitus with other specified complication | CPT/HCPCS: 80053; 80061; 83036; 83721; 85025 ==

== ENCOUNTER 2020-04-26 08:57 | Emergency (ER) | payer SELFPAY ==
[2020-04-26 09:00] VITALS: BMI 30.3
[2020-04-26 09:03] VITALS: BP 141/100; PULSE 104; RESP 16; TEMP 36.7; O2SAT 99
--- NOTE | 2020-04-26 09:07 | ED_ITS ---
HPI - Allergic Reaction General: Chief complaint: Allergic Reaction Stated complaint: ALERGIC TO BEES AND WAS STUNG Time Seen by Provider: 04/26/20 09:04 History of Present Illness: HPI narrative: Patient states he was stung by yellow jacket approximately 10 to 15 minutes ago. Says he has a tickle in his throat now. States also that in the past that he has had reactions to yellowjacket stings with throat tightness and chest pain denies any shortness of breath. No swelling. MD complaint: allergic reaction Onset (ago): minute(s) Exposure: insect bite (Yellowjacket) Known history of allergy to: Bee stings Associated symptoms: Reports itching (Throat) and other (Chest hurt left side); Deny abdominal pain, nausea or vomiting Severity: mild Treatment prior to arrival: none Previous Allergic Reaction History: prior ED visit(s) Review of Systems Const: Denies: fever(s), chills or body aches Eyes: Denies: change in vision or blurry vision ENMT: Denies: throat pain or nasal congestion Card: Denies: chest pain or dyspnea on exertion Resp: Denies: dyspnea, productive cough or non-productive cough GI: Denies: abdominal pain, nausea or vomiting : Denies: difficulty urinating Musc: Denies: extremity pain Skin/Breast: Reports: pruritus (Of throat) and other (Yellowjacket sting arm); Denies: rash Neuro: Denies: headache(s) Psych: Denies: anxiety or depression Olvin/Lymph: Denies: easy bruising PFS ED PFSH: Medical History (Updated 04/26/20 @ 10:05 by HIMANSHU Yost) Depression Diabetes mellitus type 2 in obese Hypertension Surgical History History of incision and drainage Left forearm 2017 Hx of cardiac cath 02/2014 Family History Father Diabetes Mother Diabetes Social History Smoking and tobacco status: current every day smoker Physical Exam Const: COMMON NORMALS: no acute distress, average body habitus and patient oriented x3 HENMT: COMMON NORMALS: normocephalic HEAD & SCALP: normal to inspection and normocephalic FACE & SINUS: normal facial exam Eye: COMMON NORMALS: conjunctivae normal GENERAL EYE: appearance normal, both eyes and all related structures CONJUNCTIVA: Yes conjunctivae normal Neck/C-Spine: COMMON NORMALS: no JVD Chest: COMMONS NORMALS: normal inspection of the chest Resp: COMMON NORMALS: normal respiratory effort and clear to auscultation bilaterally AUSCULTATION: clear to auscultation bilaterally Cardio: COMMON NORMALS: no JVD, regular rate and regular rhythm RATE: regular rate RHYTHM: regular rhythm GI: COMMON NORMALS: Normal to inspection, nondistended, normoactive bowel sounds present Extremity: COMMON NORMALS: normal to inspection and full ROM Neuro: COMMON NORMALS: patient oriented x3 Course Vital Signs: Vital signs: Vital Signs Temperature 98.9 F 04/26/20 10:27 Pulse Rate 87 04/26/20 10:27 Respiratory Rate 16 04/26/20 10:27 Blood Pressure 126/74 04/26/20 10:27 Pulse Oximetry 95 04/26/20 10:27 MDM - Allergic Reaction MDM Narrative: Medical decision making narrative: Discussed case with Dr. Groves. Patient has not had any worsening symptoms and really never did present with any symptoms that were actually visible just besides his seen he had itching in his throat. Patient diagnosed with allergic reaction to yellow jacket sting EKG Data^: EKG 1: EKG interpretation date: 04/26/20 EKG interpretation time: 09:35 Interpretation: Normal sinus rhythm 92 bpm NH interval 164 ms QRS durations 100 ms Discharge Plan Discharge Patient Disposition: Home, Self-Care Clinical Impression: Allergic reaction Qualifiers: Encounter type: initial encounter Qualified Code(s): T78.40XA - Allergy, unspecified, initial encounter Condition: Stable Prescriptions: New Medrol (Sha) 4 mg tablets,dose pack See Rx Instructions .ROUTE .COMPLEX Qty: 21 RF: 0 EpiPen 2-Sha 0.3 mg/0.3 mL auto-injector 0.3 mg IM Q10M PRN (Reason: anaphylaxis) Qty: 1 RF: 0 No Action buspirone 10 mg tablet 10 mg PO .At bedtime 90 Days Qty: 90 RF: 1 lisinopril 10 mg tablet 10 mg PO DAILY 90 Days Qty: 90 RF: 1 citalopram 40 mg tablet 40 mg PO DAILY 90 Days Qty: 90 RF: 3 Jardiance 10 mg tablet 10 mg PO DAILY Qty: 90 RF: 0 cephalexin 500 mg capsule 1,000 mg PO BID 10 Days Qty: 40 RF: 0 rosuvastatin 5 mg tablet 5 mg PO DAILY Qty: 90 RF: 0 epinephrine [EpiPen 2-Sha] 0.3 mg/0.3 mL Auto-Injector See Rx Instructions .ROUTE .COMPLEX RF: 0 Discharge Orders: Discharge Order (Routine); Ordered 04/26/20 Ordered By: Da Reina Referrals: Rah Link DO [Primary Care Provider] - Discharge Diet: Usual diet Discharge Activity: Resume usual activity Patient Instructions: Anaphylaxis (ED) Activity Restrictions/Additional Instructions: Follow-up with medical provider as directed. Take medications as prescribed. Return to the ER or your medical provider if condition worsens. Please read and understand discharge instructions. If any questions ask please. Discharge Date/Time: 04/26/20 10:28 Coding Level of Care Code ED Automotive Maintenance Technician for Skye Fwmundo Exam Comprehensive
[2020-04-26] MEDS: EPINEPHrine 1 mg/mL INJ 0.3 MG IM (09:13)
[2020-04-26] MEDS: diphenhydrAMINE 50 mg/mL SDV 1mL IVP (09:14)
--- NOTE | 2020-04-26 09:16 | ECG_ITS ---
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 Measurements Intervals [place] Rate: 92 P: 40 DE: 164 QRS: 33 QRSD: 100 T: 38 QT: 369 QTc: 457 Interpretive Statements SINUS RHYTHM NONSPECIFIC T-WAVE ABNORMALITY Compared to ECG 05/28/2019 12:30:22 No significant changes Electronically Signed On 04-26-2020 16:48:27 CDT by Yaa Castillo M.D. [id number]
[2020-04-26 09:21] VITALS: PULSE 95; RESP 16; O2SAT 94
[2020-04-26 09:28] VITALS: BP 142/83
[2020-04-26 10:27] VITALS: BP 126/74; PULSE 87; RESP 16; TEMP 37.2; O2SAT 95
== END 2020-04-26 10:28 | disposition home or self-care (01) ==
PROVIDERS: Emergency Provider Nurse Practitioner Family; PCP Electrodiagnostic Medicine
DX: T78.40XA Allergy, unspecified, initial encounter (principal); E11.9 Type 2 diabetes mellitus without complications; I10 Essential (primary) hypertension; F17.210 Nicotine dependence, cigarettes, uncomplicated
CPT/HCPCS: 12345; 93005; 96372; 96374; 96375; 99283; J0171; J1200; J2930

== ENCOUNTER → 2020-06-27 09:38 | Outpatient (BNVA) | payer SELFPAY | PROVIDERS: PCP Electrodiagnostic Medicine; Visit Provider Registered Nurse | DX: E11.69 Type 2 diabetes mellitus with other specified complication (principal); E66.9 Obesity, unspecified; E78.5 Hyperlipidemia, unspecified | CPT/HCPCS: 80053; 80061; 83036; 83721; 85025 ==

== ENCOUNTER → 2020-09-19 08:50 | Outpatient (BNVA) | payer SELFPAY | PROVIDERS: PCP Electrodiagnostic Medicine; Visit Provider Registered Nurse | DX: E11.69 Type 2 diabetes mellitus with other specified complication (principal); E66.9 Obesity, unspecified; F51.05 Insomnia due to other mental disorder; F40.9 Phobic anxiety disorder, unspecified; E78.5 Hyperlipidemia, unspecified | CPT/HCPCS: 80053; 80061; 83036; 83721 ==

== ENCOUNTER → 2021-01-18 10:52 | Outpatient (BNVA) | payer SELFPAY | PROVIDERS: PCP Electrodiagnostic Medicine; Visit Provider Registered Nurse | DX: E11.69 Type 2 diabetes mellitus with other specified complication (principal); E66.9 Obesity, unspecified; F32.9 Major depressive disorder, single episode, unspecified; F51.05 Insomnia due to other mental disorder; F40.9 Phobic anxiety disorder, unspecified; E11.9 Type 2 diabetes mellitus without complications; E78.5 Hyperlipidemia, unspecified; F51.04 Psychophysiologic insomnia; I10 Essential (primary) hypertension | CPT/HCPCS: 80053; 83036 ==

== ENCOUNTER 2021-08-15 17:55 | Emergency (ER) | payer SELFPAY ==
[2021-08-15 17:59] VITALS: BP 195/128; PULSE 93; RESP 16; TEMP 36.8; O2SAT 95; BMI 32.0
--- NOTE | 2021-08-15 18:15 | W.ED.EXTPRO ---
HPI - Extremity Problem General: Chief complaint: Extremity Injury, Upper Stated complaint: R HAND LAC/SENT FROM [facility] Time Seen by Provider: 08/15/21 18:15 History of Present Illness: HPI Narrative: 35-year-old male patient comes in for injury to the right thumb. Patient was changing a sawblade when it came loose and struck the top of his hand injuring the dorsal thumb at the MCP joint. Patient was first seen at urgent care at [facility] and was referred to the ER for further evaluation and treatment. Patient reports tetanus is up-to-date. Patient states that he has poor tolerance to amoxicillin. Review of Systems General: Reports: 10 or more systems reviewed and unremarkable except in HPI and below Skin/Breast: Reports: other (laceration right thumb) [facility] ED PFS: Medical History (Updated 08/15/21 @ 19:11 by HIMANSHU Cohn) Depression Diabetes mellitus type 2 in obese Hypertension Insomnia disorder Surgical History History of incision and drainage Left forearm 2017 Hx of cardiac cath 02/2014 Family History Father Diabetes Mother Diabetes Social History Smoking and tobacco status: current every day smoker Physical Exam Const: COMMON NORMALS: no acute distress and patient oriented x3 GENERAL APPEARANCE: cooperative HENMT: COMMON NORMALS: normocephalic and Normal external nose present HEAD & SCALP: normal to inspection and normocephalic NOSE: Normal external nose present Eye: GENERAL EYE: appearance normal, both eyes and all related structures Neck/C-Spine: COMMON NORMALS: full ROM Chest: COMMONS NORMALS: normal inspection of the chest Resp: COMMON NORMALS: normal respiratory effort EFFORT & INSPECTION: Yes able to speak in complete sentences Cardio: COMMON NORMALS: regular rate and regular rhythm RATE: regular rate RHYTHM: regular rhythm GI: COMMON NORMALS: non-tender Extremity: COMMON NORMALS: normal to inspection NARRATIVE EXTREMITY EXAM: 3 cm laceration to dorsal right thumb at MCP joint, active ROM noted decrease in hyperextension, normal cap refill, Neuro: COMMON NORMALS: patient oriented x3 and moves all extremities Psych: COMMON NORMALS: mental status grossly normal and cooperative Skin: COMMON NORMALS: no rashes or lesions noted GENERAL SKIN EXAM: no rashes or lesions noted Procedures Laceration Laceration 1: Site: hand Side (If applicable): right Size (cm): 3 Description: linear Depth: simple, single layer Local Anesthetic: lidocaine 1% and with epi Amount of anesthesia used (mL): 3 Pre-repair: wound explored, irrigated extensively and deep structures intact (note fascia injury ) Skin layer closed with: nylon Size (cm): 4-0 Number of sutures: 6 Technique: simple, interrupted (4) and horizontal mattress (2) Course ED course: 1829, reviewed exam with Dr. Meng who recommended we consult Dr. Palacio for further recommendation of treatment. Consultations: Consultation #1: Dr. Palacio was consulted regarding care of thumb, she recommended follow-up in the office for further evaluation and as long as patient had range of motion. Time: 19:00 Vital Signs: Vital signs: Vital Signs Temperature 98.3 F 08/15/21 17:59 Pulse Rate 93 08/15/21 17:59 Respiratory Rate 16 08/15/21 17:59 Blood Pressure 195/128 08/15/21 17:59 Pulse Oximetry 95 08/15/21 17:59 MDM - Extremity (Nontraumatic) MDM Narrative: Medical decision making narrative: 35-year-old male patient comes in today with injury to the right thumb at the MCP joint there is a laceration that is approximately 3 cm. Patient has range of motion of the thumb but may be some reduction in hyperextension. Sensation and cap refill is intact. Differential diagnosis includes laceration, tendon injury, fracture. X-ray was normal. Wound was closed and approximated with total of [address] Palacio was consulted and will follow patient in the office. Patient will be started on antibiotic for prophylaxis. Thumb splint was put in place for protection of wound. Discharge Plan Discharge Patient Disposition: Home Clinical Impression: Laceration of thumb with tendon involvement Qualifiers: Encounter type: initial encounter Laterality: right Qualified Code(s): S61.011A - Laceration without foreign body of right thumb without damage to nail, initial encounter Condition: Stable Prescriptions: New cephalexin 500 mg capsule 500 mg PO BID 10 Days Qty: 20 RF: 0 No Action rosuvastatin 20 mg tablet 20 mg PO DAILY Qty: 90 RF: 0 acyclovir 800 mg tablet 800 mg PO TID 10 Days Qty: 30 RF: 0 citalopram 40 mg tablet 40 mg PO DAILY 90 Days Qty: 90 RF: 0 glipizide 5 mg tablet 5 mg PO TIDWMEAL Qty: 180 RF: 0 lisinopril 20 mg tablet 20 mg PO DAILY Qty: 90 RF: 0 Januvia 25 mg tablet 25 mg PO DAILY Qty: 90 RF: 0 trazodone 50 mg tablet 50 - 100 mg PO DAILY Qty: 60 RF: 0 empagliflozin 25 mg tablet 25 mg PO DAILY Qty: 90 RF: 0 EpiPen 2-Sha 0.3 mg/0.3 mL auto-injector 0.3 mg IM Q10M PRN (Reason: anaphylaxis) Qty: 1 RF: 0 Discharge Orders: Discharge ED (Routine); Ordered 08/15/21 Ordered By: Parish Guerra Referrals: Rah Link, [Primary Care Provider] - Discharge Diet: Usual diet Discharge Activity: Increase activity as tolerated Patient Instructions: Finger Laceration (ED), Opioid Safety Activity Restrictions/Additional Instructions: Keep wound clean and dry. Wear splint to protect injury. Follow-up with orthopedist surgeon for further evaluation and treatment. Return to the emergency department for new concerns. Coding Level of Care Code ED Loss Control Manager for Skye Adams
--- NOTE | 2021-08-15 18:16 | XRR_ITS ---
PROCEDURE INFORMATION: Exam: XR Right Hand Exam date and time: 08/15/2021 6:16 PM Age: 35 years old Clinical indication: Injury or trauma; Other: Cut with saw blade; Laceration; Hand; Right; Additional info: Thumb injury TECHNIQUE: Imaging protocol: XR Right hand. Views: 3 or more views. COMPARISON: No relevant prior studies available. FINDINGS: Bones/joints: The bones are intact and in normal alignment. No acute fracture. Old healed 5th metacarpal fracture. Soft tissues: Deep soft tissue laceration in the thumb extending near the 1st metacarpophalangeal joint. XR/XR hand RT min 3V* 18221 IMPRESSION: 1. No acute fracture or foreign body. Radiation Dose CTDIVOL = (mGy): DLP = (mGy-cm)
[2021-08-15] MEDS: cephALEXin 500 mg Capsule PO (18:47)
[2021-08-15 19:51] VITALS: BP 142/87; PULSE 84; RESP 16; TEMP 36.8; O2SAT 95
--- NOTE | 2021-08-16 11:37 | DCPLANNER ---
Addendum entered by Shira Jiang 08/16/21 12:24: Ortho clinic called business case analyst and stated that when clinic called patient to schedule an appointment, patient stated that he does not want to be seen. Original Note: health care manager had message to schedule a follow up appointment for patient with ortho. health care manager called the ortho clinic, spoke with Grace, gave clinic patients information. health care manager was told that patients information would be printed and reviewed. Clinic will call patient with appointment information.
== END 2021-08-15 19:45 | disposition home or self-care (01) ==
PROVIDERS: Emergency Provider Nurse Practitioner Family; PCP Electrodiagnostic Medicine
DX: S61.011A Laceration without foreign body of right thumb without damage to nail, initial encounter (principal); Z79.84 Long term (current) use of oral hypoglycemic drugs; E11.9 Type 2 diabetes mellitus without complications; W27.0XXA Contact with workbench tool, initial encounter
CPT/HCPCS: 12002; 73130; 99283

== ENCOUNTER 2022-03-07 08:44 | Emergency (ER) | payer SELFPAY ==
[2022-03-07 08:47] VITALS: BP 143/97; PULSE 89; RESP 14; TEMP 36.5; O2SAT 96; BMI 32.3
[2022-03-07] MEDS: sodium chloride 0.9% 1,000 ML 999 ML IV (09:10)
--- NOTE | 2022-03-07 09:12 | PC.PHAR ---
PT STATES HE HAS NOT FILLED OR TAKEN ANY PRESCRIPTIONS IN A LONG TIME. PT WAS TAKING CITALOPRAM, GLIPIZIDE, JANUVIA, LISINOPRIL, ROSUVASTATIN AND TRAZADONE AT SOME POINT. UNABLE TO SAY WHERE HE LAST FILLED.
[2022-03-07 09:21] LABS: Basophils % 0.3 %; Hematocrit 51.5 % (42.0-52.0); Hemoglobin 17.2 g/dL (11.7-16.6); Lymphocytes # 1.2 10^3/uL (0.8-4.8); Lymphocytes % 30.8 %; Mean Corpuscular HGB Conc 33.4 g/dL (30.0-36.0); Mean Corpuscular Hemoglobin 28.6 pg (28.0-34.0); Mean Corpuscular Volume 85.7 fl (80-94); Mean Platelet Volume 10.5 fL (7.4-10.4); Monocytes # 0.4 10^3/uL (0.2-0.9); Neutrophils # 2.33 10^3/uL (1.8-7.7); Neutrophils % 58.1 %; Nucleated Red Blood Cells % 0 %; Platelet Count 147 10^3/cmm (130-400); Red Blood Count 6.01 10^6/uL (4.1-5.3); Red Cell Distribution Width 13.8 % (12.1-15.1)
--- NOTE | 2022-03-07 09:36 | W.ED.GENADLT ---
HPI - General Adult General: Chief complaint: General Medical Stated complaint: Heache, dizzy, says his kidneys hurt Time Seen by Provider: 03/07/22 08:59 History of Present Illness: Patient comes in with cold symptoms including headache, dizziness, body aches, dehydration, vomiting. States the symptoms started yesterday. Associated symptoms: Reports nausea and vomiting; Deny chest pain, dyspnea, headache(s), rash or palpitations Review of Systems Const: Reports: fever(s) and body aches Eyes: Denies: change in vision or blurry vision ENMT: Denies: throat pain or odynophagia Card: Denies: chest pain or palpitations Resp: Denies: dyspnea or productive cough GI: Reports: nausea and vomiting; Denies: abdominal pain : Reports: flank pain; Denies: dysuria Musc: Denies: neck pain or back pain Skin/Breast: Denies: rash or pruritus Neuro: Denies: headache(s) or numbness in extremities Psych: Denies: anxiety or change in appetite Endo: Denies: polyuria or excessive sweating PFS ED PFSH: Medical History (Updated 03/07/22 @ 10:39 by Giovanni Siddiqui MD) Depression Diabetes mellitus type 2 in obese Hypertension Insomnia disorder Surgical History History of incision and drainage Left forearm 2017 Hx of cardiac cath 02/2014 Family History Father Diabetes Mother Diabetes Social History Smoking and tobacco status: current every day smoker Physical Exam Const: COMMON NORMALS: no acute distress, patient oriented x3, healthy appearing and alert HENMT: COMMON NORMALS: normocephalic and atraumatic HEAD & SCALP: normocephalic and atraumatic OTHER: Dry mucous membranes Eye: COMMON NORMALS: Equal, round and reactive pupils present and EOMs intact bilaterally PUPIL: Yes Equal, round and reactive pupils present Neck/C-Spine: COMMON NORMALS: full ROM and supple Resp: COMMON NORMALS: normal respiratory effort, No retractions and No use of accessory muscles Cardio: COMMON NORMALS: regular rate and regular rhythm RATE: regular rate RHYTHM: regular rhythm GI: COMMON NORMALS: Normal to inspection, nondistended, normoactive bowel sounds present, Soft to palpation and non-tender PALPATION: Yes Soft to palpation Back/Pelvis: COMMON NORMALS: thoracic and lumbar spine normal to inspection and no thoracic nor lumbar tenderness Extremity: COMMON NORMALS: normal to inspection and full ROM Neuro: COMMON NORMALS: patient oriented x3 SENSORIUM/ORIENTATION: Yes alert Psych: COMMON NORMALS: mental status grossly normal and cooperative Skin: COMMON NORMALS: no rashes or lesions noted and no wounds GENERAL SKIN EXAM: no rashes or lesions noted Course Vital Signs: Vital signs: Vital Signs Temperature 97.7 F 03/07/22 08:47 Pulse Rate 89 03/07/22 08:47 Respiratory Rate 14 03/07/22 08:47 Blood Pressure 143/97 03/07/22 08:47 Pulse Oximetry 96 03/07/22 08:47 [facility] - General Adult Medical Decision Making Patient comes in with cold symptoms including headache, dizziness, body aches, dehydration, vomiting. States the symptoms started yesterday. On physical exam he has dry mucous membranes. Will check labs, give IV fluids, and reassess. On reassessment I talked to the patient about the test results. Will discharge home at this time with precautions to return for worsening or changing symptoms. Lab Data : 03/07/22 09:05 03/07/22 09:30 Laboratory Results WBC 4.0 10^3/uL (4.0-10.0) 03/07/22 09:05 RBC 6.01 10^6/uL (4.1-5.3) H 03/07/22 09:05 Hgb 17.2 g/dL (11.7-16.6) H 03/07/22 09:05 Hct 51.5 % (42.0-52.0) 03/07/22 09:05 MCV 85.7 fl (80-94) 03/07/22 09:05 MCH 28.6 pg (28.0-34.0) 03/07/22 09:05 MCHC 33.4 g/dL (30.0-36.0) 03/07/22 09:05 RDW 13.8 % (12.1-15.1) 03/07/22 09:05 Plt Count 147 10^3/cmm (130-400) 03/07/22 09:05 MPV 10.5 fL (7.4-10.4) H 03/07/22 09:05 Neut % (Auto) 58.1 % 03/07/22 09:05 Lymph % (Auto) 30.8 % 03/07/22 09:05 [place] % (Auto) 10.0 % 03/07/22 09:05 Eos % (Auto) 0.0 % 03/07/22 09:05 Baso % (Auto) 0.3 % 03/07/22 09:05 Neut # (Auto) 2.33 10^3/uL (1.8-7.7) 03/07/22 09:05 Lymph # (Auto) 1.2 10^3/uL (0.8-4.8) 03/07/22 09:05 [place] # (Auto) 0.4 10^3/uL (0.2-0.9) 03/07/22 09:05 Eos # (Auto) 0.0 10^3/uL (0.0-0.8) 03/07/22 09:05 Baso # (Auto) 0.0 10^3/uL (0.0-0.1) 03/07/22 09:05 Nucleated RBC % (auto) 0 % 03/07/22 09:05 Nucleated RBCs # 0.0 /100WBC 03/07/22 09:05 Sodium 136 mmol/L (136-145) 03/07/22 09:30 Potassium 3.4 mmol/L (3.5-5.1) L 03/07/22 09:30 Chloride 97 mmol/L (98-107) L 03/07/22 09:30 Carbon Dioxide 27 mmol/L (22-29) 03/07/22 09:30 Anion Gap 15.4 (5-19) 03/07/22 09:30 BUN 22 mg/dL (6-20) H 03/07/22 09:30 Creatinine 0.7 mg/dL (0.7-1.2) 03/07/22 09:30 GFR Calculation 126.9 mL/min (90-130) 03/07/22 09:30 Glucose 333 mg/dL (65-115) H 03/07/22 09:30 Calculated Osmolality 298 mOsm/kg (285-295) H 03/07/22 09:30 Calcium 8.2 mg/dL (8.5-10.5) L 03/07/22 09:30 Magnesium 1.8 mg/dL (1.7-2.3) 03/07/22 09:30 Total Bilirubin 0.5 mg/dL (0.15-1.2) 03/07/22 09:30 AST 28 U/L (0-40) 03/07/22 09:30 ALT 30 U/L (0-41) 03/07/22 09:30 Alkaline Phosphatase 77 IU/L (40-130) 03/07/22 09:30 Total Protein 6.3 g/dL (6.6-8.7) L 03/07/22 09:30 Albumin 3.9 g/dL (3.5-5.2) 03/07/22 09:30 Globulin 2.4 g/dL (1.3-4.6) 03/07/22 09:30 Discharge Plan Discharge Patient Disposition: Home Clinical Impression: Dehydration Condition: Stable Prescriptions: No Action No Known Home Medications 0RF Discharge Orders: Discharge ED (Routine); Ordered 03/07/22 Ordered By: Giovanni Siddiqui Referrals: Rah Link DO [Primary Care Provider] - Coding Level of Care Code ED Straightening Press Operator Helper for Chg Fwd Exam Comprehensive
[2022-03-07 09:59] LABS: Alanine Aminotransferase 30 U/L (0-41); Albumin Level 3.9 g/dL (3.5-5.2); Alkaline Phosphatase 77 IU/L (40-130); Anion Gap 15.4 (5-19); Aspartate Amino Transferase 28 U/L (0-40); Blood Urea Nitrogen 22 mg/dL (6-20); Calcium 8.2 mg/dL (8.5-10.5); Carbon Dioxide 27 mmol/L (22-29); Chloride 97 mmol/L (98-107); Globulin 2.4 g/dL (1.3-4.6); Glomerular Filtration Rate 126.9 mL/min (90-130); Glucose 333 mg/dL (65-115); Magnesium 1.8 mg/dL (1.7-2.3); Osmolality Calculated 298 mOsm/kg (285-295); Potassium 3.4 mmol/L (3.5-5.1); Sodium 136 mmol/L (136-145); Total Bilirubin 0.5 mg/dL (0.15-1.2); Total Protein 6.3 g/dL (6.6-8.7)
[2022-03-07 10:49] LABS: Add Urine Microscopic? YES; Bilirubin Urine Neg (Negative); Blood Urine Trace (Negative); Glucose Urine UA 4+ (Normal); Ketones Urine 1+ (Negative); Leukocyte Esterase Urine Trace (Negative); Nitrate Urine Negative (Negative); Protein Urine 1+ (Negative); Urine Appearance Clear (CLEAR); Urine Color Yellow (Yellow); Urobilinogen Urine Norm (Negative); pH Urine 5 (5-7)
[2022-03-07 10:50] LABS: Bacteria Urine 1+ /hpf; RBC Urine 0-4 /hpf (0-2); Squamous Epithelial Cell Urine 0-4 /hpf (0-5); WBC Urine 0-4 /hpf (0-5)
== END 2022-03-07 10:58 | disposition home or self-care (01) ==
PROVIDERS: Emergency Provider Emergency Medicine; PCP Electrodiagnostic Medicine
DX: E86.0 Dehydration (principal); E11.9 Type 2 diabetes mellitus without complications; I10 Essential (primary) hypertension; E66.9 Obesity, unspecified; Z68.32 Body mass index [BMI] 32.0-32.9, adult
CPT/HCPCS: 80053; 81001; 83735; 85025; 96360; 99283; J7030

== ENCOUNTER → 2022-05-30 15:32 | Outpatient (BNVA) | payer SELFPAY | PROVIDERS: PCP Electrodiagnostic Medicine; Visit Provider Registered Nurse | DX: E11.69 Type 2 diabetes mellitus with other specified complication (principal); E78.5 Hyperlipidemia, unspecified; I10 Essential (primary) hypertension; E66.9 Obesity, unspecified | CPT/HCPCS: 80053; 80061; 83036; 83721; 85025 ==

== ENCOUNTER → 2022-08-13 11:31 | Outpatient (BNVA) | payer SELFPAY | PROVIDERS: PCP Registered Nurse; Visit Provider Registered Nurse | DX: R50.9 Fever, unspecified (principal); E11.69 Type 2 diabetes mellitus with other specified complication; E66.9 Obesity, unspecified; J02.0 Streptococcal pharyngitis; J06.9 Acute upper respiratory infection, unspecified; I10 Essential (primary) hypertension; Z91.14 Patient's other noncompliance with medication regimen | CPT/HCPCS: 87880 ==

== ENCOUNTER 2022-10-08 08:41 | Emergency (ER) | payer SELFPAY ==
--- NOTE | 2022-10-08 09:01 | ECG_ITS ---
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 Measurements Intervals [place] Rate: 90 P: 32 NE: 154 QRS: 33 QRSD: 103 T: 68 QT: 348 QTc: 428 Interpretive Statements SINUS RHYTHM NONSPECIFIC T-WAVE ABNORMALITY Compared to ECG 04/26/2020 09:34:01 No significant changes Electronically Signed On 10-08-2022 14:11:02 MANAGER RECOVERY by Conrad Ervin M.D. [id number]
[2022-10-08 09:02] VITALS: BP 157/114; PULSE 93; TEMP 36.4; O2SAT 98; BMI 29.9
--- NOTE | 2022-10-08 09:02 | W.ED.ABDPA2 ---
HPI - Abdominal Pain General: Chief Complaint: Abdominal Pain Stated Complaint: Pains in upper stomach area Time Seen by Provider: 10/08/22 08:45 Source: patient Mode of arrival: ambulatory History of Present Illness: D7-year-old male comes in complaining of epigastric discomfort radiating to the right and the left. He states he had pancreatitis before and feels similar to that does not recall eating or drinking anything that would have usually triggered it. He has been nauseous. Patient is diabetic he is on glipizide. He is also on Ozempic. Denies any fever sweats chills any hematochezia melena hematemesis or coffee-ground emesis. MD elicited complaint: abdominal pain Pertinent past history: none Onset (ago): day(s) Pain Consistency: constant Location: Epigastric Severity: moderate Quality: cramping Radiation: LUQ and RUQ Exacerbating factors: eating Relieving factors: nothing Associated Symptoms: Reports bloating and nausea; Denies anorexia, belching, change in bowel habits, change in stool character, chills, coffee ground emesis, constipation, GI cramping, diarrhea, dyspepsia, dysuria, excessive flatus, fecal incontinence, loose stools, vomiting and other Review of Systems Const: Denies: chills ENMT: Denies: throat pain, ear or mastoid pain, nasal discharge or nasal congestion Card: Denies: chest pain, edema, dyspnea on exertion or orthopnea Resp: Denies: dyspnea, productive cough or non-productive cough GI: Reports: abdominal pain, nausea and bloating; Denies: vomiting, coffee ground emesis, diarrhea, constipation, GI cramping, belching, excessive flatus, fecal incontinence, change in bowel habits, change in stool character or other : Denies: dysuria Skin/Breast: Denies: rash or pruritus PFSH ED PFSH: Medical History Depression Diabetes mellitus type 2 in obese Hypertension Insomnia disorder Surgical History History of incision and drainage Left forearm 2017 Hx of cardiac cath 02/2014 Family History Father Diabetes Mother Diabetes Social History Smoking and tobacco status: current every day smoker Alcohol intake: never Adopted: No Caregiver/support person: No Lives independently: No service: No Current occupational status: employed Sexually active: Yes Current gender identity: Male Physical Exam Const: GENERAL APPEARANCE: cooperative and comfortable ORIENTATION/CONSCIOUSNESS: Yes awake, Yes oriented to person, Yes oriented to place and Yes oriented to time HENMT: COMMON NORMALS: normocephalic, atraumatic and hearing grossly normal bilaterally HEAD & SCALP: normocephalic and atraumatic Eye: COMMON NORMALS: Equal, round and reactive pupils present and EOMs intact bilaterally PUPIL: Yes Equal, round and reactive pupils present Resp: COMMON NORMALS: normal respiratory effort, No retractions, No use of accessory muscles and clear to auscultation bilaterally AUSCULTATION: clear to auscultation bilaterally Cardio: COMMON NORMALS: regular rate, regular rhythm and No murmurs present (Cardio) RATE: regular rate RHYTHM: regular rhythm GI: COMMON NORMALS: Soft to palpation and No hepatosplenomegaly present AUSCULTATION: Yes normoactive bowel sounds PALPATION: Yes Soft to palpation, No Tenderness to palpation present (GI), No Guarding due to palpation present (GI) and Yes No hepatosplenomegaly present Extremity: COMMON NORMALS: normal to inspection, capillary refill normal, no clubbing, cyanosis or edema, no calf tenderness and no pedal edema Neuro: SENSORIUM/ORIENTATION: Yes oriented to person, Yes oriented to place and Yes oriented to time Skin: COMMON NORMALS: no rashes or lesions noted GENERAL SKIN EXAM: no rashes or lesions noted Course Vital Signs: Vital signs: Vital Signs Temperature 97.6 F 10/08/22 09:02 Pulse Rate 99 10/08/22 09:04 Respiratory Rate 17 10/08/22 09:04 Blood Pressure 152/95 10/08/22 11:34 Pulse Oximetry 98 10/08/22 11:34 Oxygen Delivery Me thod 10/08/22 11:34 MDM - Abdominal Pain Medical Decision Making Abdominal pain no significant finding on exam most of his pain refers to the epigastric area and right left upper quadrants but there is no guarding or rebound laboratory test CT are negative. We will discharge patient home suspect symptoms may be reflux add proton pump inhibitor if not improving follow-up with primary care Medical Records I reviewed the patient's medical records. Lab Data I reviewed the patient's lab results. 10/08/22 09:24 10/08/22 09:24 Labs/Radiology: Radiology Impressions Abdomen/Pelvis CT 10/08/22 10:35 IMPRESSION: 1. No acute findings in the abdomen or pelvis. 2. No hydronephrosis in either kidney. No obstructing renal or ureteral calculi. 3. Normal appendix in RIGHT lower quadrant. No evidence of acute appendicitis. 4. Mild prominence of the prostate measuring 4.3 CM. Urine distended bladder. Correlation PSA. 5. Normal GE junction. Laboratory Results WBC 8.1 10^3/uL (4.0-10.0) 10/08/22 09:24 RBC 6.25 10^6/uL (4.1-5.3) H 10/08/22 09:24 Hgb 18.1 g/dL (11.7-16.6) H 10/08/22 09:24 Hct 53.6 % (42.0-52.0) H 10/08/22 09:24 MCV 85.8 fl (80-94) 10/08/22 09:24 MCH 29.0 pg (28.0-34.0) 10/08/22 09:24 MCHC 33.8 g/dL (30.0-36.0) 10/08/22 09:24 RDW 13.2 % (12.1-15.1) 10/08/22 09:24 Plt Count 208 10^3/cmm (130-400) 10/08/22 09:24 MPV 9.7 fL (7.4-10.4) 10/08/22 09:24 Neut % (Auto) 56.9 % 10/08/22 09:24 Lymph % (Auto) 35.5 % 10/08/22 09:24 [place] % (Auto) 5.2 % 10/08/22 09:24 Eos % (Auto) 1.7 % 10/08/22 09:24 Baso % (Auto) 0.5 % 10/08/22 09:24 Neut # (Auto) 4.63 10^3/uL (1.8-7.7) 10/08/22 09:24 Lymph # (Auto) 2.9 10^3/uL (0.8-4.8) 10/08/22 09:24 [place] # (Auto) 0.4 10^3/uL (0.2-0.9) 10/08/22 09:24 Eos # (Auto) 0.1 10^3/uL (0.0-0.8) 10/08/22 09:24 Baso # (Auto) 0.0 10^3/uL (0.0-0.1) 10/08/22 09:24 Nucleated RBC % (auto) 0 % 10/08/22 09:24 Nucleated RBCs # 0.0 /100WBC 10/08/22 09:24 Sodium 132 mmol/L (136-145) L 10/08/22 10:00 Potassium 3.9 mmol/L (3.5-5.1) 10/08/22 10:00 Chloride 96 mmol/L (98-107) L 10/08/22 10:00 Carbon Dioxide 25 mmol/L (22-29) 10/08/22 10:00 Anion Gap 14.9 (5-19) 10/08/22 10:00 BUN 17 mg/dL (6-20) 10/08/22 10:00 Creatinine 0.6 mg/dL (0.7-1.2) L 10/08/22 10:00 GFR Calculation 150.8 mL/min (90-130) H 10/08/22 10:00 Glucose 294 mg/dL (65-115) H 10/08/22 10:00 Calculated Osmolality 286 mOsm/kg (285-295) 10/08/22 10:00 Lactic Acid 1.1 mmol/L (0.5-2.2) 10/08/22 10:00 Calcium 8.7 mg/dL (8.5-10.5) 10/08/22 10:00 Total Bilirubin 0.8 mg/dL (0.15-1.2) 10/08/22 10:00 AST 13 U/L (0-40) 10/08/22 10:00 ALT 21 U/L (0-41) 10/08/22 10:00 Alkaline Phosphatase 103 U/L (40-130) 10/08/22 10:00 Total Protein 7.2 g/dL (6.6-8.7) 10/08/22 10:00 Albumin 4.2 g/dL (3.5-5.2) 10/08/22 10:00 Globulin 3.0 g/dL (1.3-4.6) 10/08/22 10:00 Lipase 26 U/L (13-60) 10/08/22 10:00 Urine Color Yellow (Yellow) 10/08/22 11:50 Urine Appearance Clear (CLEAR) 10/08/22 11:50 Urine pH 5 (5-7) 10/08/22 11:50 Ur Specific [place] 1.020 (1.005-1.030) 10/08/22 11:50 Urine Protein 2+ (Negative) H 10/08/22 11:50 Urine Glucose (UA) 4+ (Normal) H 10/08/22 11:50 Urine Ketones 2+ (Negative) H 10/08/22 11:50 Urine Blood Neg (Negative) 10/08/22 11:50 Urine Nitrate Negative (Negative) 10/08/22 11:50 Urine Bilirubin Neg (Negative) 10/08/22 11:50 Urine Urobilinogen Norm mg/dL (Negative) 10/08/22 11:50 Ur Leukocyte Esterase Negative (Negative) 10/08/22 11:50 Urine RBC None /hpf (0-2) 10/08/22 11:50 Urine WBC 0-4 /hpf (0-5) H 10/08/22 11:50 Ur Squamous Epith Cells None /hpf (0-5) 10/08/22 11:50 Amorphous Sediment Not Reportable 10/08/22 11:50 Urine Bacteria 3+ /hpf (NONE) H 10/08/22 11:50 Discharge Plan Discharge Patient Disposition: Home Clinical Impression: Abdominal pain Condition: Stable Prescriptions: New Protonix 40 mg tablet,delayed release (DR/EC) 40 mg PO DAILY Qty: 30 0RF No Action lisinopril 20 mg tablet 20 mg PO DAILY Qty: 90 0RF glipizide 5 mg tablet See Rx Instructions PO BID 90 Days Qty: 180 0RF Rx Instructions: orally twice a day; 1 tab wit breakfast, 2 tab with supper Ozempic 0.25 mg or 0.5 mg(2 mg/1.5 mL) pen injector 0.5 mg SUBCUT .weekly 30 Days Qty: 1.6 0RF Rx Instructions: will need appt before next refill amoxicillin 500 mg capsule 500 mg PO TID Qty: 30 0RF promethazine-DM 6.25-15 mg/5 mL syrup 5 - 10 ml PO .at bedtime 10 Days Qty: 100 0RF Discharge Orders: Discharge ED (Routine); Ordered 10/08/22 Ordered By: Flako Oneill Referrals: Diya Payne, CAR FILLER [Primary Care Provider] - Discharge Diet: As Directed Discharge Activity: Resume usual activity Patient Instructions: Abdominal Pain (ED), Esophagitis (ED), Opioid Safety, Pain Management Coding Level of Care Code ED Registered Nurse Step Down for Chg Fwd Exam Comprehensive
[2022-10-08 09:04] VITALS: BP 161/106; PULSE 99; RESP 17; O2SAT 97
[2022-10-08] MEDS: sodium chloride 0.9% 1,000 ML 999 ML IV (09:28)
[2022-10-08] MEDS: ondansetron 2 mg/ML SDV 2 mL 4 MG IVP (09:28)
[2022-10-08 09:35] LABS: Basophils % 0.5 %; Eosinophils # 0.1 10^3/uL (0.0-0.8); Eosinophils % 1.7 %; Hematocrit 53.6 % (42.0-52.0); Hemoglobin 18.1 g/dL (11.7-16.6); Lymphocytes # 2.9 10^3/uL (0.8-4.8); Lymphocytes % 35.5 %; Mean Corpuscular HGB Conc 33.8 g/dL (30.0-36.0); Mean Corpuscular Volume 85.8 fl (80-94); Mean Platelet Volume 9.7 fL (7.4-10.4); Monocytes # 0.4 10^3/uL (0.2-0.9); Monocytes % 5.2 %; Neutrophils # 4.63 10^3/uL (1.8-7.7); Neutrophils % 56.9 %; Nucleated Red Blood Cells % 0 %; Platelet Count 208 10^3/cmm (130-400); Red Blood Count 6.25 10^6/uL (4.1-5.3); Red Cell Distribution Width 13.2 % (12.1-15.1); White Blood Count 8.1 10^3/uL (4.0-10.0)
[2022-10-08 10:28] LABS: Alanine Aminotransferase 21 U/L (0-41); Albumin Level 4.2 g/dL (3.5-5.2); Alkaline Phosphatase 103 U/L (40-130); Anion Gap 14.9 (5-19); Aspartate Amino Transferase 13 U/L (0-40); Blood Urea Nitrogen 17 mg/dL (6-20); Calcium 8.7 mg/dL (8.5-10.5); Carbon Dioxide 25 mmol/L (22-29); Chloride 96 mmol/L (98-107); Glomerular Filtration Rate 150.8 mL/min (90-130); Glucose 294 mg/dL (65-115); Lipase 26 U/L (13-60); Osmolality Calculated 286 mOsm/kg (285-295); Potassium 3.9 mmol/L (3.5-5.1); Sodium 132 mmol/L (136-145); Total Bilirubin 0.8 mg/dL (0.15-1.2); Total Protein 7.2 g/dL (6.6-8.7)
[2022-10-08 10:29] LABS: Lactic Sepsis W/Reflex 1.1 mmol/L (0.5-2.2)
--- NOTE | 2022-10-08 10:35 | CT_ITS ---
WS: [id number] CT ABDOMEN PELVIS TECHNIQUE: Noncontrast CT of the abdomen and pelvis with coronal and sagittal reformatted images. CLINICAL INFORMATION: Abdominal pain COMPARISON: CT October 19, 2019 DLP: 817.[address] scans at [facility] use at least one of these dose optimization techniques: automated e xposure control; mA and/or kV adjustment per patient size (includes targeted exams where dose is matc hed to clinical indication); or iterative reconstruction. FINDINGS: Noncontrast liver is normal. Normal noncontrast spleen. Normal GE junction. Air-fluid level in the no rmal caliber stomach. Noncontrast gallbladder is normal. Mild fatty atrophy of the pancreas.Slight at electasis in the lingula. Lung bases are well aerated. Urine distended bladder. Normal sigmoid colon. Normal appendix in the RIGHT lower quadrant. No eviden ce of high-grade small or large bowel obstruction. Urine distended bladder. Mild prostate prominence measuring 4.3 CM. Adrenal glands are normal. No hydronephrosis in either kidney. Normal caliber abdom inal aorta. Small splenule. No obstructing renal or ureteral calculi. CT/CT abdomen pelvis wo con [id number] IMPRESSION: 1. No acute findings in the abdomen or pelvis. 2. No hydronephrosis in either kidney. No obstructing renal or ureteral calcul i. 3. Normal appendix in RIGHT lower quadrant. No evidence of acute appendicitis. 4. Mild prominence of the prostate measuring 4.3 CM. Urine distended bladder. Correlation PSA. 5. Normal GE junction.
[2022-10-08 11:34] VITALS: BP 152/95; O2SAT 98
[2022-10-08 12:35] LABS: Add Urine Culture? Yes; Add Urine Microscopic? YES; Bacteria Urine 3+ /hpf; Bilirubin Urine Neg (Negative); Blood Urine Neg (Negative); Glucose Urine UA 4+ (Normal); Ketones Urine 2+ (Negative); Leukocyte Esterase Urine Negative (Negative); Nitrate Urine Negative (Negative); Protein Urine 2+ (Negative); Urine Appearance Clear (CLEAR); Urine Color Yellow (Yellow); Urobilinogen Urine Norm (Negative); WBC Urine 0-4 /hpf (0-5); pH Urine 5 (5-7)
== END 2022-10-08 12:05 | disposition home or self-care (01) ==
PROVIDERS: Emergency Provider Family Medicine; PCP Registered Nurse
DX: R10.9 Unspecified abdominal pain (principal); Z79.84 Long term (current) use of oral hypoglycemic drugs; E11.9 Type 2 diabetes mellitus without complications; I10 Essential (primary) hypertension; F17.210 Nicotine dependence, cigarettes, uncomplicated
CPT/HCPCS: 36415; 74176; 80053; 81001; 83605; 83690; 85025; 87040; 87086; 93005; 96374; 99285; J2405; J7030

== ENCOUNTER → 2022-10-17 11:39 | Outpatient (BNVA) | payer SELFPAY | PROVIDERS: PCP Registered Nurse; Visit Provider Registered Nurse Neonatal Intensive Care | DX: S69.92XA Unspecified injury of left wrist, hand and finger(s), initial encounter (principal); X58.XXXA Exposure to other specified factors, initial encounter | CPT/HCPCS: 73130 ==

== ENCOUNTER 2023-07-22 11:51 | Emergency (ER) | payer SELFPAY ==
[2023-07-22] VITALS (9 sets, daily range): BP systolic 148–198; BP diastolic 97–127; PULSE 74–94; RESP 18–20; TEMP 36.9; O2SAT 94–99; BMI 29.0
--- NOTE | 2023-07-22 11:57 | ECG_ITS ---
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 Measurements Intervals [place] Rate: 85 P: 51 [place]: 161 QRS: 46 QRSD: 96 T: 67 QT: 361 QTc: 429 Interpretive Statements SINUS RHYTHM LEFT ATRIAL ENLARGEMENT [-0.15mV P-WAVE IN V1/V2] POSSIBLE RIGHT VENTRICULAR CONDUCTION DELAY [RSR (QR) IN V1/V2] NONSPECIFIC T-WAVE ABNORMALITY Compared to ECG 10/08/2022 09:30:39 Atrial abnormality now present T-wave abnormality still present Electronically Signed On 07-22-2023 12:46:39 CDT by Conrad Ervin M.D. [email or web address] [email or web address] medical centerBioCuritykettering health [email or web address]/store/NU/[id number] f
--- NOTE | 2023-07-22 11:59 | XRR_ITS ---
PROCEDURE INFORMATION: Exam: XR Chest Exam date and time: 07/22/2023 12:13 PM Age: 37 years old Clinical indication: Cough and dyspnea; Additional info: Dyspnea/cough TECHNIQUE: Imaging protocol: Radiologic exam of the chest. Views: 1 view. COMPARISON: CR XR chest 1V [id number] 05/28/2019 9:36 AM FINDINGS: Lungs: Unremarkable. No consolidation. Pleural spaces: Unremarkable. No pleural effusion. No pneumothorax. Heart/Mediastinum: Unremarkable. No cardiomegaly. Bones/joints: Unremarkable. XR/XR chest 1V portable [id number] IMPRESSION: No acute findings.
--- NOTE | 2023-07-22 12:05 | ED_ITS ---
HPI - Chest Pain General: Chief Complaint: Chest Pain Stated Complaint: chest tight, blurred vision, tingling extremities Time Seen by Provider: 07/22/23 11:59 Source: patient Mode of arrival: ambulatory History of Present Illness: 37-year-old male presents emergency room complaint of tingling in his hands and feet patient is diabetic he has a history hypertension. He has no focal neurologic deficits symptoms began earlier today has not been taking care of his hypertension. No known history of coronary disease had some mild chest discomfort associated with this as well. MD complaint: chest pain Onset (ago): day(s) Timing of current episode: episodic Prior episodes: Yes Onset: during rest Pain location: left chest Pain radiation: none Severity: mild Quality: tightness and aching Relieving factors: nothing Exacerbating factors: nothing Associated symptoms: Deny abdominal pain, diaphoresis, dyspnea, fever(s), leg edema, nausea, palpitations, sense of impending doom, syncope or vomiting Treatment prior to arrival: none Risk Factors: Coronary artery disease risk factors: diabetes and smoking history Thoracic aortic dissection risk factors: none Review of Systems Const: Denies: fever(s), chills or diaphoresis Card: Reports: chest pain; Denies: palpitations or syncope Resp: Denies: dyspnea GI: Denies: abdominal pain, nausea or vomiting : Denies: dysuria, urinary frequency or urinary urgency Musc: Denies: neck pain or back pain Skin/Breast: Denies: rash PFSH ED PFSH: Medical History Depression Diabetes mellitus type 2 in obese Hypertension Insomnia disorder Surgical History History of incision and drainage Left forearm 2017 Hx of cardiac cath 02/2014 Family History Father Diabetes Mother Diabetes Social History Smoking and tobacco status: current every day smoker Alcohol intake: never Substance/Drug Use: never Adopted: No Caregiver/support person: No Lives independently: No service: No Current occupational status: employed Sexually active: Yes Do you think of yourself as: Straight/Heterosexual Current gender identity: Male Physical Exam Const: GENERAL APPEARANCE: cooperative and comfortable ORIENTATION/CONSCIOUSNESS: Yes awake, Yes oriented to person, Yes oriented to place and Yes oriented to time HENMT: COMMON NORMALS: normocephalic, atraumatic and hearing grossly normal bilaterally HEAD & SCALP: normocephalic and atraumatic Resp: COMMON NORMALS: normal respiratory effort, No retractions, No use of accessory muscles and clear to auscultation bilaterally AUSCULTATION: clear to auscultation bilaterally Cardio: COMMON NORMALS: regular rate, regular rhythm and No murmurs present (Cardio) RATE: regular rate RHYTHM: regular rhythm GI: COMMON NORMALS: Soft to palpation and No hepatosplenomegaly present AUSCULTATION: Yes normoactive bowel sounds PALPATION: Yes Soft to palpation, No Tenderness to palpation present (GI), No Guarding due to palpation present (GI) and Yes No hepatosplenomegaly present Extremity: COMMON NORMALS: normal to inspection, capillary refill normal, no clubbing, cyanosis or edema, no calf tenderness and no pedal edema Neuro: SENSORIUM/ORIENTATION: Yes oriented to person, Yes oriented to place and Yes oriented to time Skin: COMMON NORMALS: no rashes or lesions noted GENERAL SKIN EXAM: no rashes or lesions noted Course Vital Signs: Vital signs: Vital Signs Temperature 98.4 F 07/22/23 11:59 Pulse Rate 76 07/22/23 15:15 Respiratory Rate 20 H 07/22/23 15:15 Blood Pressure 162/110 07/22/23 15:15 Pulse Oximetry 96 07/22/23 15:15 Oxygen Delivery Me thod Room Air 07/22/23 11:59 MDM - Chest Pain Medical Decision Making EKG shows no acute ST elevation cardiac enzymes trending negative. Blood pressure improved with medications given will discharge home on amlodipine 5 mg daily lisinopril 10 mg daily. Follow-up with your doctor within the next week to reevaluate. Patient reports he has previously had angiogram done that was negative. At this point we did not schedule an outpatient stress test have him follow-up with his doctor if he has further problems return to the emergency room his primary care because it physician can reevaluate and discuss with him if he needs further cardiac evaluation. Medical Records I reviewed the patient's medical records. Lab Data I reviewed the patient's lab results. 07/22/23 12:10 07/22/23 12:10 Radiology Impressions Chest X-Ray 07/22/23 11:59 IMPRESSION: No acute findings. Laboratory Results WBC 8.34 10^3/uL (3.29-11.43) 07/22/23 12:10 RBC 6.06 10^6/uL (3.85-5.65) H 07/22/23 12:10 Hgb 17.80 g/dL (11.27-16.99) H 07/22/23 12:10 Hct 51.1 % (37-53) 07/22/23 12:10 MCV 84.3 fl (82-101) 07/22/23 12:10 MCH 29.4 pg (27-33) 07/22/23 12:10 MCHC 34.8 g/dL (30-55) 07/22/23 12:10 RDW 12.8 % (12.1-15.1) 07/22/23 12:10 Plt Count 212 10^3/cmm (157-399) 07/22/23 12:10 MPV 9.5 fL (7.4-10.4) 07/22/23 12:10 Neut % (Auto) 68.6 % 07/22/23 12:10 Lymph % (Auto) 24.2 % 07/22/23 12:10 [place] % (Auto) 4.8 % 07/22/23 12:10 Eos % (Auto) 1.7 % 07/22/23 12:10 Baso % (Auto) 0.5 % 07/22/23 12:10 Neut # (Auto) 5.72 10^3/uL (1.8-7.7) 07/22/23 12:10 Lymph # (Auto) 2.0 10^3/uL (0.8-4.8) 07/22/23 12:10 [place] # (Auto) 0.4 10^3/uL (0.2-0.9) 07/22/23 12:10 Eos # (Auto) 0.1 10^3/uL (0.0-0.8) 07/22/23 12:10 Baso # (Auto) 0.0 10^3/uL (0.0-0.1) 07/22/23 12:10 Nucleated RBC % (auto) 0 % 07/22/23 12:10 Nucleated RBCs # 0.0 /100WBC 07/22/23 12:10 Sodium 139 mmol/L (136-145) 07/22/23 12:10 Potassium 3.6 mmol/L (3.5-5.1) 07/22/23 12:10 Chloride 102 mmol/L (98-107) 07/22/23 12:10 Carbon Dioxide 24 mmol/L (22-29) 07/22/23 12:10 Anion Gap 16.6 (5-19) 07/22/23 12:10 BUN 14 mg/dL (6-20) 07/22/23 12:10 Creatinine 0.8 mg/dL (0.7-1.2) 07/22/23 12:10 GFR Calculation 108.2 mL/min (90-130) 07/22/23 12:10 Glucose 299 mg/dL (65-115) H 07/22/23 12:10 Calculated Osmolality 300 mOsm/kg (285-295) H 07/22/23 12:10 Calcium 9.1 mg/dL (8.5-10.5) 07/22/23 12:10 Total Bilirubin 0.6 mg/dL (0.15-1.2) 07/22/23 12:10 AST 16 U/L (0-40) 07/22/23 12:10 ALT 21 U/L (0-41) 07/22/23 12:10 Alkaline Phosphatase 97 U/L (40-130) 07/22/23 12:10 Troponin T Baseline 10 ng/L (0-15) 07/22/23 12:10 Troponin T 120 Minute 8.93 ng/L (0-15) 07/22/23 13:50 Delta Troponin T -1.07 ABS# (0-10) L 07/22/23 13:50 Total Protein 6.8 g/dL (6.6-8.7) 07/22/23 12:10 Albumin 4.6 g/dL (3.5-5.2) 07/22/23 12:10 Globulin 2.2 g/dL (1.3-4.6) 07/22/23 12:10 All radiology interpretation(s) finalized by discharge Discharge Plan Discharge Patient Disposition: Home Clinical Impression: Hypertension Condition: Stable Prescriptions: New amlodipine 5 mg tablet 5 mg PO DAILY Qty: 30 0RF lisinopril 10 mg tablet 10 mg PO DAILY Qty: 30 0RF Discharge Orders: Discharge ED (Routine); Ordered 07/22/23 Ordered By: Flako Oneill Referrals: Diya Payne, CHRONIC MANAGER [Primary Care Provider] - Discharge Diet: Usual diet Discharge Activity: Resume usual activity Patient Instructions: Opioid Safety, Pain Management Activity Restrictions/Additional Instructions: Follow-up with your doctor within the next week. Coding Level of Care Code ED Furnace Attendant for Skye Adams
[2023-07-22 12:20] LABS: Basophils % 0.5 %; Eosinophils # 0.1 10^3/uL (0.0-0.8); Eosinophils % 1.7 %; Hematocrit 51.1 % (37-53); Lymphocytes % 24.2 %; Mean Corpuscular HGB Conc 34.8 g/dL (30-55); Mean Corpuscular Hemoglobin 29.4 pg (27-33); Mean Corpuscular Volume 84.3 fl (82-101); Mean Platelet Volume 9.5 fL (7.4-10.4); Monocytes # 0.4 10^3/uL (0.2-0.9); Monocytes % 4.8 %; Neutrophils # 5.72 10^3/uL (1.8-7.7); Neutrophils % 68.6 %; Nucleated Red Blood Cells % 0 %; Platelet Count 212 10^3/cmm (157-399); Red Blood Count 6.06 10^6/uL (3.85-5.65); Red Cell Distribution Width 12.8 % (12.1-15.1); White Blood Count 8.34 10^3/uL (3.29-11.43)
[2023-07-22] MEDS: aspirin 81 mg Chew Tablet 324 MG PO (12:20)
[2023-07-22 12:49] LABS: Troponin(5th) Baseline 10 ng/L (0-15)
[2023-07-22] MEDS: hyDRALAzine 20 mg/mL INJ 1 mL IVP (12:57)
[2023-07-22] MEDS: amlodipine 10 mg Tablet PO (12:57)
[2023-07-22 12:58] LABS: Alanine Aminotransferase 21 U/L (0-41); Albumin Level 4.6 g/dL (3.5-5.2); Alkaline Phosphatase 97 U/L (40-130); Aspartate Amino Transferase 16 U/L (0-40); Blood Urea Nitrogen 14 mg/dL (6-20); Calcium 9.1 mg/dL (8.5-10.5); Carbon Dioxide 24 mmol/L (22-29); Chloride 102 mmol/L (98-107); Globulin 2.2 g/dL (1.3-4.6); Glomerular Filtration Rate 108.2 mL/min (90-130); Glucose 299 mg/dL (65-115); Osmolality Calculated 300 mOsm/kg (285-295); Sodium 139 mmol/L (136-145); Total Bilirubin 0.6 mg/dL (0.15-1.2); Total Protein 6.8 g/dL (6.6-8.7)
[2023-07-22 13:00] LABS: Anion Gap 16.6 (5-19); Potassium 3.6 mmol/L (3.5-5.1)
[2023-07-22 14:24] LABS: Troponin 5 2HR 8.93 ng/L (0-15); Troponin 5 2HR Delta -1.07 ABS# (0-10)
== END 2023-07-22 15:04 | disposition home or self-care (01) ==
PROVIDERS: Emergency Provider Family Medicine; PCP Registered Nurse
DX: I10 Essential (primary) hypertension (principal); E11.9 Type 2 diabetes mellitus without complications; F17.210 Nicotine dependence, cigarettes, uncomplicated
CPT/HCPCS: 36415; 71045; 80053; 84484; 85025; 93005; 96374; 99285; J0360

== ENCOUNTER → 2023-07-30 09:54 | Outpatient (BNVA) | payer SELFPAY | PROVIDERS: PCP Registered Nurse; Visit Provider Registered Nurse | DX: E11.69 Type 2 diabetes mellitus with other specified complication (principal); E78.5 Hyperlipidemia, unspecified; R10.9 Unspecified abdominal pain; E66.9 Obesity, unspecified | CPT/HCPCS: 81000 ==

== ENCOUNTER 2023-08-14 07:24 | Emergency (ER) | payer SELFPAY ==
[2023-08-14 07:34] VITALS: BP 164/133; PULSE 101; TEMP 36.6; O2SAT 98; BMI 29.7
--- NOTE | 2023-08-14 07:38 | W.ED.ABDPA2 ---
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 He has stopped drinking and has not had a drink for several months now. He has had increasing abdominal pain nausea and vomiting since August 10. He did recently restart Victoza within the last week. No fever sweats chills denies hematemesis coffee-ground emesis. No previous abdominal surgery. MD elicited complaint: abdominal pain Pertinent past history: other (Pancreatitis) Location: Epigastric and LUQ Severity: severe Quality: cramping Radiation: none Exacerbating factors: nothing Relieving factors: nothing Associated Symptoms: Denies anorexia, belching, bloating, change in bowel habits, change in stool character, chills, coffee ground emesis, constipation, GI cramping, diarrhea, dyspepsia, dysuria, excessive flatus, fever(s), heartburn, hematochezia, hematuria, hematemesis, fecal incontinence, loose stools, melena, nausea, poor appetite, syncope and vomiting Review of Systems Const: Denies: fever(s) or chills Card: Denies: syncope Resp: Denies: dyspnea GI: Denies: nausea, vomiting, hematemesis, coffee ground emesis, heartburn, diarrhea, constipation, bloating, GI cramping, belching, excessive flatus, fecal incontinence, change in bowel habits, change in stool character, hematochezia or melena : Denies: dysuria or hematuria Musc: Denies: neck pain or back pain Skin/Breast: Denies: rash PFSH ED PFSH: Medical History Depression Diabetes mellitus type 2 in obese Hypertension Insomnia disorder Surgical History History of incision and drainage Left forearm 2017 Hx of cardiac cath 02/2014 Family History Father Diabetes Mother Diabetes Social History Smoking and tobacco/nicotine status: current every day tobacco/nicotine user Alcohol intake: never Substance/Drug Use: never Adopted: No Caregiver/support person: No Lives independently: No service: No Current occupational status: employed Sexually active: Yes Do you think of yourself as: Straight/Heterosexual Current gender identity: Male Physical Exam Const: GENERAL APPEARANCE: cooperative and comfortable ORIENTATION/CONSCIOUSNESS: Yes awake, Yes oriented to person, Yes oriented to place and Yes oriented to time HENMT: COMMON NORMALS: normocephalic, atraumatic and hearing grossly normal bilaterally HEAD & SCALP: normocephalic and atraumatic Resp: COMMON NORMALS: normal respiratory effort, No retractions, No use of accessory muscles and clear to auscultation bilaterally AUSCULTATION: clear to auscultation bilaterally Cardio: COMMON NORMALS: regular rate, regular rhythm and No murmurs present (Cardio) RATE: regular rate RHYTHM: regular rhythm GI: COMMON NORMALS: No hepatosplenomegaly present AUSCULTATION: Yes normoactive bowel sounds PALPATION: Yes Tenderness to palpation present (GI) Details: LUQ, No Guarding due to palpation present (GI) and Yes No hepatosplenomegaly present Extremity: COMMON NORMALS: normal to inspection, capillary refill normal, no clubbing, cyanosis or edema, no calf tenderness and no pedal edema Neuro: SENSORIUM/ORIENTATION: Yes oriented to person, Yes oriented to place and Yes oriented to time Skin: COMMON NORMALS: no rashes or lesions noted GENERAL SKIN EXAM: no rashes or lesions noted Course Vital Signs: Vital signs: Vital Signs Temperature 98 F 08/14/23 07:34 Pulse Rate 90 08/14/23 08:39 Respiratory Rate 18 08/14/23 08:39 Blood Pressure 165/113 08/14/23 08:39 Pulse Oximetry 97 08/14/23 08:39 Oxygen Delivery Me thod Room Air 08/14/23 08:39 MDM - Abdominal Pain Medical Decision Making Lipase is minimally elevated patient has pancreatitis clinically and CT confirms. [place] probably bladder brought about by his Victoza he denies any recent alcohol use. We advised observation for fluid rehydration and monitoring. He refuses wants to go home we will discharge patient home hold glipizide and Victoza follow-up with primary care to reevaluate blood sugar control within the next week return if pain is under is poorly controlled. Discharged home with antiemetics. Medical Records I reviewed the patient's medical records. Lab Data I reviewed the patient's lab results. 08/14/23 07:42 08/14/23 07:42 Labs/Radiology: Laboratory Results WBC 8.38 10^3/uL (3.29-11.43) 08/14/23 07:42 RBC 6.39 10^6/uL (3.85-5.65) H 08/14/23 07:42 Hgb 18.40 g/dL (11.27-16.99) H 08/14/23 07:42 Hct 53.5 % (37-53) H 08/14/23 07:42 MCV 83.7 fl (82-101) 08/14/23 07:42 MCH 28.8 pg (27-33) 08/14/23 07:42 MCHC 34.4 g/dL (30-55) 08/14/23 07:42 RDW 12.8 % (12.1-15.1) 08/14/23 07:42 Plt Count 241 10^3/cmm (157-399) 08/14/23 07:42 MPV 9.1 fL (7.4-10.4) 08/14/23 07:42 Neut % (Auto) 64.7 % 08/14/23 07:42 Lymph % (Auto) 27.3 % 08/14/23 07:42 [place] % (Auto) 4.9 % 08/14/23 07:42 Eos % (Auto) 2.1 % 08/14/23 07:42 Baso % (Auto) 0.6 % 08/14/23 07:42 Neut # (Auto) 5.42 10^3/uL (1.8-7.7) 08/14/23 07:42 Lymph # (Auto) 2.3 10^3/uL (0.8-4.8) 08/14/23 07:42 [place] # (Auto) 0.4 10^3/uL (0.2-0.9) 08/14/23 07:42 Eos # (Auto) 0.2 10^3/uL (0.0-0.8) 08/14/23 07:42 Baso # (Auto) 0.1 10^3/uL (0.0-0.1) 08/14/23 07:42 Nucleated RBC % (auto) 0 % 08/14/23 07:42 Nucleated RBCs # 0.0 /100WBC 08/14/23 07:42 PT 13.10 SECONDS (12.1-14.9) 08/14/23 07:42 INR 0.97 (0.8-1.2) 08/14/23 07:42 APTT 29.5 SECONDS (23.9-36.7) 08/14/23 07:42 Sodium 135 mmol/L (136-145) L 08/14/23 07:42 Potassium 3.6 mmol/L (3.5-5.1) 08/14/23 07:42 Chloride 98 mmol/L (98-107) 08/14/23 07:42 Carbon Dioxide 27 mmol/L (22-29) 08/14/23 07:42 Anion Gap 13.6 (5-19) 08/14/23 07:42 BUN 15 mg/dL (6-20) 08/14/23 07:42 Creatinine 0.7 mg/dL (0.7-1.2) 08/14/23 07:42 GFR Calculation 126.2 mL/min (90-130) 08/14/23 07:42 Glucose 178 mg/dL (65-115) H 08/14/23 07:42 Calculated Osmolality 285 mOsm/kg (285-295) 08/14/23 07:42 Calcium 9.4 mg/dL (8.5-10.5) 08/14/23 07:42 Total Bilirubin 0.8 mg/dL (0.15-1.2) 08/14/23 07:42 AST 12 U/L (0-40) 08/14/23 07:42 ALT 18 U/L (0-41) 08/14/23 07:42 Alkaline Phosphatase 103 U/L (40-130) 08/14/23 07:42 Total Protein 7.6 g/dL (6.6-8.7) 08/14/23 07:42 Albumin 4.6 g/dL (3.5-5.2) 08/14/23 07:42 Globulin 3.0 g/dL (1.3-4.6) 08/14/23 07:42 Lipase 69 U/L (13-60) H 08/14/23 07:42 Urine Color Dark yellow (Yellow) 08/14/23 07:55 Urine Appearance Clear (CLEAR) 08/14/23 07:55 Urine pH 6 (5-7) 08/14/23 07:55 Ur Specific [place] 1.025 (1.005-1.030) 08/14/23 07:55 Urine Protein 2+ (Negative) H 08/14/23 07:55 Urine Glucose (UA) Trace (Normal) H 08/14/23 07:55 Urine Ketones Negative (Negative) 08/14/23 07:55 Urine Blood Neg (Negative) 08/14/23 07:55 Urine Nitrate Negative (Negative) 08/14/23 07:55 Urine Bilirubin Neg (Negative) 08/14/23 07:55 Urine Urobilinogen Norm mg/dL (Negative) 08/14/23 07:55 Ur Leukocyte Esterase Negative (Negative) 08/14/23 07:55 Urine RBC Rare /hpf (0-2) 08/14/23 07:55 Urine WBC 0-4 /hpf (0-5) H 08/14/23 07:55 Ur Squamous Epith Cells Rare /hpf (0-5) 08/14/23 07:55 Amorphous Sediment Not Reportable 08/14/23 07:55 Urine Bacteria None /hpf (NONE) 08/14/23 07:55 Hyaline Casts Rare /lpf 08/14/23 07:55 Urine Mucus 2+ /hpf 08/14/23 07:55 Ethyl Alcohol < 10 mg/dL (0-10) 08/14/23 07:42 All radiology interpretation(s) finalized by discharge Discharge Plan Discharge Patient Disposition: Home Clinical Impression: Pancreatitis, Medication side effect Condition: Stable Prescriptions: New ondansetron HCl 4 mg tablet 4 mg PO Q6H PRN (Reason: nausea and vomiting) Qty: 20 0RF Discontinued Victoza 2-Sha 0.6 mg/0.1 mL (18 mg/3 mL) pen injector 0.6 mg SUBCUT BEDTIME Rx Instructions: 340B (no insurance) No Action glipizide 5 mg tablet See Rx Instructions PO BID 90 Days Qty: 180 0RF Rx Instructions: TAKE 1 TABLET BY MOUTH WITH BREAKFAST AND TWO TABS WITH SUPPER gabapentin 100 mg capsule 100 - 200 mg PO BEDTIME 30 Days Qty: 60 0RF lisinopril 20 mg tablet 20 mg PO BEDTIME Discharge Orders: Discharge ED (Routine); Ordered 08/14/23 Ordered By: Flako Oneill Referrals: Diya Payne FNP [Primary Care Provider] - Discharge Diet: Clear Liquid Discharge Activity: Increase activity as tolerated Patient Instructions: Opioid Safety, Pain Management Activity Restrictions/Additional Instructions: Thank you for choosing [facility] for your healthcare needs today. Please realize this is an emergency room and that we are providing you with a medical screening exam and this may not be complete and all inclusive of all the testing and or work up that you may need to determine your ailment or severity of your illness. It is very important that you follow up as instructed or that you return to the Emergency Department should you have concerns or if your condition changes or worsens in any way. You are found to have pancreatitis is likely caused by the Victoza. Would also recommend holding the glipizide for at least a week. Follow-up with your primary care doctor within the next week to reevaluate diabetic regimen. Clear liquid diet for the next 48 to 72 hours or until pain resolves. Coding Level of Care Code ED Pocket Marker for Skye Adams
[2023-08-14] MEDS: sodium chloride 0.9% 1,000 ML 999 ML IV (07:52)
[2023-08-14] MEDS: ondansetron 2 mg/ML SDV 2 mL 4 MG IVP (07:52)
[2023-08-14 07:53] VITALS: BP 164/133; PULSE 93; RESP 20; O2SAT 97
[2023-08-14 07:55] LABS: Basophils # 0.1 10^3/uL (0.0-0.1); Basophils % 0.6 %; Eosinophils # 0.2 10^3/uL (0.0-0.8); Eosinophils % 2.1 %; Hematocrit 53.5 % (37-53); Lymphocytes # 2.3 10^3/uL (0.8-4.8); Lymphocytes % 27.3 %; Mean Corpuscular HGB Conc 34.4 g/dL (30-55); Mean Corpuscular Hemoglobin 28.8 pg (27-33); Mean Corpuscular Volume 83.7 fl (82-101); Mean Platelet Volume 9.1 fL (7.4-10.4); Monocytes # 0.4 10^3/uL (0.2-0.9); Monocytes % 4.9 %; Neutrophils # 5.42 10^3/uL (1.8-7.7); Neutrophils % 64.7 %; Nucleated Red Blood Cells % 0 %; Platelet Count 241 10^3/cmm (157-399); Red Blood Count 6.39 10^6/uL (3.85-5.65); Red Cell Distribution Width 12.8 % (12.1-15.1); White Blood Count 8.38 10^3/uL (3.29-11.43)
[2023-08-14 08:08] LABS: INR 0.97 (0.8-1.2)
[2023-08-14 08:09] LABS: Alanine Aminotransferase 18 U/L (0-41); Albumin Level 4.6 g/dL (3.5-5.2); Alkaline Phosphatase 103 U/L (40-130); Anion Gap 13.6 (5-19); Aspartate Amino Transferase 12 U/L (0-40); Blood Urea Nitrogen 15 mg/dL (6-20); Calcium 9.4 mg/dL (8.5-10.5); Carbon Dioxide 27 mmol/L (22-29); Chloride 98 mmol/L (98-107); Glomerular Filtration Rate 126.2 mL/min (90-130); Glucose 178 mg/dL (65-115); Lipase 69 U/L (13-60); Osmolality Calculated 285 mOsm/kg (285-295); Partial Thromboplastin Time 29.5 SECONDS (23.9-36.7); Potassium 3.6 mmol/L (3.5-5.1); Sodium 135 mmol/L (136-145); Total Bilirubin 0.8 mg/dL (0.15-1.2); Total Protein 7.6 g/dL (6.6-8.7)
[2023-08-14 08:10] LABS: Alcohol Level < 10 mg/dL (0-10)
--- NOTE | 2023-08-14 08:14 | CT_ITS ---
WS: [id number] CT ABDOMEN PELVIS TECHNIQUE: Noncontrast CT of the abdomen and pelvis with coronal and sagittal reformatted images. CLINICAL INFORMATION: Abdominal pain COMPARISON: CT 10/08/2022 DLP: 877.[address] scans at [facility] use at least one of these dose optimization techniques: automated e xposure control; mA and/or kV adjustment per patient size (includes targeted exams where dose is matc hed to clinical indication); or iterative reconstruction. FINDINGS: Mild inflammatory stranding and edema at the head of the pancreas compatible with acute pancreatitis. No visualized pancreatic mass or lesion. No drainable fluid collections or pseudocysts. A few surrou nding reactive lymph nodes. Portal vein and splenic vein are patent. Normal spleen. Normal GE junctio n. Subsegmental atelectasis in the lingula and RIGHT middle lobe. Mild diffuse fatty filtration of the l iver. Normal spleen. Normal gallbladder. Portal vein and splenic vein are patent. Adrenal glands are normal. Normal renal parenchymal enhancement. No hydronephrosis. Celiac and SMA are patent. Normal caliber abdominal aorta. Sigmoid diverticulosis. No evidence of acu te diverticulitis. Normal appendix in the RIGHT lower quadrant. IMPRESSION: 1. Mild inflammatory stranding and edema about the head of the pancreas compatible with acute pancre atitis. 2. No drainable fluid collection or pseudocyst. 3. Mild diffuse fatty infiltration liver. 4. No other acute findings.
[2023-08-14] MEDS: iohexol 350 mg/mL 500 mL Btl (per mL) IV (08:25)
[2023-08-14 08:28] LABS: Add Urine Microscopic? YES; Bilirubin Urine Neg (Negative); Blood Urine Neg (Negative); Glucose Urine UA Trace (Normal); Ketones Urine Negative (Negative); Leukocyte Esterase Urine Negative (Negative); Nitrate Urine Negative (Negative); Protein Urine 2+ (Negative); Specific Gravity, Urine 1.025 (1.005-1.030); Urine Appearance Clear (CLEAR); Urine Color Dark Yellow (Yellow); Urobilinogen Urine Norm (Negative); pH Urine 6 (5-7)
[2023-08-14 08:34] LABS: RBC Urine RARE /hpf (0-2); WBC Urine 0-4 /hpf (0-5)
[2023-08-14 08:35] LABS: Add Urine Culture? No; Hyaline Casts Urine RARE /lpf; Mucus Urine 2+ /hpf; Squamous Epithelial Cell Urine RARE /hpf (0-5)
[2023-08-14 08:39] VITALS: BP 165/113; PULSE 90; RESP 18; O2SAT 97
[2023-08-14 10:06] VITALS: RESP 18
[2023-08-14] MEDS: morphine 4 mg/mL SDV 1 mL IVP (10:06)
== END 2023-08-14 10:08 | disposition home or self-care (01) ==
PROVIDERS: Emergency Provider Family Medicine; PCP Registered Nurse
DX: K85.90 Acute pancreatitis without necrosis or infection, unspecified (principal); T88.7XXA Unspecified adverse effect of drug or medicament, initial encounter; T50.995A Adverse effect of other drugs, medicaments and biological substances, initial encounter; E11.9 Type 2 diabetes mellitus without complications; I10 Essential (primary) hypertension; Z72.0 Tobacco use
CPT/HCPCS: 74176; 80053; 80307; 81001; 83690; 85025; 85610; 85730; 96374; 96375; 99285; J2270; J2405; J7030; Q9967

== ENCOUNTER 2023-08-16 01:48 | Emergency (ER) | payer SELFPAY ==
[2023-08-16 01:50] VITALS: BP 149/105; PULSE 91; RESP 14; TEMP 36.7; O2SAT 99
[2023-08-16 02:09] LABS: Basophils % 0.5 %; Eosinophils # 0.2 10^3/uL (0.0-0.8); Eosinophils % 2.6 %; Hematocrit 53.3 % (37-53); Lymphocytes # 2.8 10^3/uL (0.8-4.8); Lymphocytes % 34.9 %; Mean Corpuscular HGB Conc 33.8 g/dL (30-55); Mean Corpuscular Hemoglobin 29.1 pg (27-33); Mean Corpuscular Volume 86.1 fl (82-101); Mean Platelet Volume 9.7 fL (7.4-10.4); Monocytes # 0.4 10^3/uL (0.2-0.9); Monocytes % 4.9 %; Neutrophils % 56.7 %; Nucleated Red Blood Cells % 0 %; Platelet Count 231 10^3/cmm (157-399); Red Blood Count 6.19 10^6/uL (3.85-5.65); White Blood Count 7.94 10^3/uL (3.29-11.43)
[2023-08-16] MEDS: sodium chloride 0.9% 1,000 ML 999 ML IV (02:10)
[2023-08-16] MEDS: morphine 4 mg/mL SDV 1 mL IVP (02:10)
[2023-08-16] MEDS: ondansetron 2 mg/ML SDV 2 mL 4 MG IVP (02:10)
--- NOTE | 2023-08-16 02:19 | USR_ITS ---
PROCEDURE INFORMATION: Exam: US Abdomen, Limited; Right Upper Quadrant Exam date and time: 08/16/2023 3:31 AM Age: 37 years old Clinical indication: Abdominal pain; Additional info: Epigastric pain, HX of pancreatitis TECHNIQUE: Imaging protocol: Real time ultrasound of the abdomen with image documentation. Limited exam focused on the right upper quadrant. COMPARISON: 1. US abdomen complete* [id number] 10/24/2019 7:[address] abdomen pelvis wo con [id number] 08/14/2023 8:23 AM FINDINGS: Liver: Normal. No masses. Gallbladder: Normal. No gallstones. There is no gallbladder wall thickening. Biliary ducts: Normal. No stones. No dilation. Pancreas: Visualized pancreas is heterogeneous in echotexture. No focal mass. No enlargement. No pseudocyst. Right kidney: Normal. No mass. No hydronephrosis. US/US gall bladder [id number] IMPRESSION: Mildly heterogeneous pancreas which could represent pancreatitis, otherwise unremarkable exam of the right upper quadrant.
[2023-08-16 02:35] LABS: Add Urine Microscopic? YES; Bilirubin Urine Neg (Negative); Blood Urine Neg (Negative); Glucose Urine UA 4+ (Normal); Ketones Urine Negative (Negative); Leukocyte Esterase Urine Negative (Negative); Nitrate Urine Negative (Negative); Protein Urine 3+ (Negative); Urine Appearance Clear (CLEAR); Urine Color Yellow (Yellow); Urobilinogen Urine 1 mg/dL (Negative); pH Urine 6 (5-7)
[2023-08-16 02:43] LABS: Add Urine Culture? No; Amorphous Sediment Urine 1+ /hpf; Mucus Urine 2+ /hpf; RBC Urine RARE /hpf (0-2); Squamous Epithelial Cell Urine RARE /hpf (0-5); WBC Urine RARE /hpf (0-5)
--- NOTE | 2023-08-16 02:50 | ED_ITS ---
HPI - Abdominal Pain General: Chief Complaint: Abdominal Pain Stated Complaint: Pancreatitis Time Seen by Provider: 08/16/23 02:03 History of Present Illness: 37-year-old male with a history of pancreatitis. In the distant past, was likely related to alcohol. He has not had alcohol in some years now. He was seen 2 days ago with epigastric pain. He was diagnosed with pancreatitis due to slightly high lipase levels and pancreatic inflammation on imaging. There was no pseudocyst. He reports very little intake at home. Last evening, he ate a plain baked potato with increase in his symptoms. He has Not been vomiting currently. He complains of pain. Associated Symptoms: Reports nausea; Denies chills, diarrhea, fever(s), hematochezia and vomiting Review of Systems Const: Denies: fever(s), chills or body aches Eyes: Denies: change in vision Card: Denies: chest pain or palpitations Resp: Denies: dyspnea, productive cough, non-productive cough or wheezing GI: Reports: abdominal pain and nausea; Denies: vomiting, diarrhea or hematochezia : Denies: flank pain Musc: Reports: back pain Skin/Breast: Denies: rash Neuro: Denies: headache(s), weakness in extremities, dizziness or confusion PFSH ED PFSH: Medical History Depression Diabetes mellitus type 2 in obese Hypertension Insomnia disorder Surgical History History of incision and drainage Left forearm 2017 Hx of cardiac cath 02/2014 Family History Father Diabetes Mother Diabetes Social History Smoking and tobacco/nicotine status: current every day tobacco/nicotine user Alcohol intake: never Substance/Drug Use: never Adopted: No Caregiver/support person: No Lives independently: No service: No Current occupational status: employed Sexually active: Yes Do you think of yourself as: Straight/Heterosexual Current gender identity: Male Physical Exam Const: COMMON NORMALS: no acute distress GENERAL APPEARANCE: cooperative; not ill appearing and not frail appearing HENMT: COMMON NORMALS: normocephalic, atraumatic and Normal external nose present HEAD & SCALP: normocephalic and atraumatic FACE & SINUS: normal facial exam and face symmetric NOSE: Normal external nose present Eye: COMMON NORMALS: Equal, round and reactive pupils present and EOMs intact bilaterally PUPIL: Yes Equal, round and reactive pupils present Neck/C-Spine: GENERAL: Yes trachea midline Chest: CHEST: Yes Symmetrical chest wall rise Resp: COMMON NORMALS: normal respiratory effort, No retractions, No use of accessory muscles and clear to auscultation bilaterally AUSCULTATION: clear to auscultation bilaterally Cardio: COMMON NORMALS: regular rate and regular rhythm RATE: regular rate RHYTHM: regular rhythm GI: COMMON NORMALS: Normal to inspection, nondistended, normoactive bowel sounds present PALPATION: Yes Tenderness to palpation present (GI) (Epigastric) Details: RUQ and Yes Guarding due to palpation present (GI) Extremity: COMMON NORMALS: no pedal edema Neuro: BON COMA SCALE: document GCS findings Bon coma scale eye opening: Spontaneous [place] coma scale verbal response: Orientated [place] coma scale motor response: Obey commands Bon coma scale total score: 15 SENSORY EXAM: Yes extremities (intact) Psych: COMMON NORMALS: speech normal SPEECH: Yes normal speech Skin: COMMON NORMALS: no rashes or lesions noted GENERAL SKIN EXAM: no rashes or lesions noted Course Vital Signs: Vital signs: Vital Signs Temperature 98.1 F 08/16/23 01:50 Pulse Rate 91 08/16/23 01:50 Respiratory Rate 14 08/16/23 01:50 Blood Pressure 149/105 08/16/23 01:50 Pulse Oximetry 99 08/16/23 01:50 MDM - Abdominal Pain Medical Decision Making 37-year-old male back for the second time this week with pancreatitis symptoms. White count is 8. Hemoglobin is 18. Glucose is urinalysis is negative. Lipase is 115. Bilirubin is normal. Ultrasound shows an enlarged liver with a normal gallbladder. There is pancreatic inflammation similar to his CT scan. home, liquids, pain control. Return if worsnening. Lab Data 08/16/23 02:04 08/16/23 02:33 Labs/Radiology: Radiology Impressions Gallbladder Ultrasound 08/16/23 02:19 IMPRESSION: Mildly heterogeneous pancreas which could represent pancreatitis, otherwise unremarkable exam of the right upper quadrant. Laboratory Results WBC 7.94 10^3/uL (3.29-11.43) 08/16/23 02:04 RBC 6.19 10^6/uL (3.85-5.65) H 08/16/23 02:04 Hgb 18.00 g/dL (11.27-16.99) H 08/16/23 02:04 Hct 53.3 % (37-53) H 08/16/23 02:04 MCV 86.1 fl (82-101) 08/16/23 02:04 MCH 29.1 pg (27-33) 08/16/23 02:04 MCHC 33.8 g/dL (30-55) 08/16/23 02:04 RDW 13.0 % (12.1-15.1) 08/16/23 02:04 Plt Count 231 10^3/cmm (157-399) 08/16/23 02:04 MPV 9.7 fL (7.4-10.4) 08/16/23 02:04 Neut % (Auto) 56.7 % 08/16/23 02:04 Lymph % (Auto) 34.9 % 08/16/23 02:04 [place] % (Auto) 4.9 % 08/16/23 02:04 Eos % (Auto) 2.6 % 08/16/23 02:04 Baso % (Auto) 0.5 % 08/16/23 02:04 Neut # (Auto) 4.50 10^3/uL (1.8-7.7) 08/16/23 02:04 Lymph # (Auto) 2.8 10^3/uL (0.8-4.8) 08/16/23 02:04 [place] # (Auto) 0.4 10^3/uL (0.2-0.9) 08/16/23 02:04 Eos # (Auto) 0.2 10^3/uL (0.0-0.8) 08/16/23 02:04 Baso # (Auto) 0.0 10^3/uL (0.0-0.1) 08/16/23 02:04 Nucleated RBC % (auto) 0 % 08/16/23 02:04 Nucleated RBCs # 0.0 /100WBC 08/16/23 02:04 Sodium 137 mmol/L (136-145) 08/16/23 02:33 Potassium 3.9 mmol/L (3.5-5.1) 08/16/23 02:33 Chloride 102 mmol/L (98-107) 08/16/23 02:33 Carbon Dioxide 26 mmol/L (22-29) 08/16/23 02:33 Anion Gap 12.9 (5-19) 08/16/23 02:33 BUN 17 mg/dL (6-20) 08/16/23 02:33 Creatinine 0.7 mg/dL (0.7-1.2) 08/16/23 02:33 GFR Calculation 126.2 mL/min (90-130) 08/16/23 02:33 Glucose 280 mg/dL (65-115) H 08/16/23 02:33 Calculated Osmolality 296 mOsm/kg (285-295) H 08/16/23 02:33 Calcium 8.4 mg/dL (8.5-10.5) L 08/16/23 02:33 Total Bilirubin 0.5 mg/dL (0.15-1.2) 08/16/23 02:33 AST 15 U/L (0-40) 08/16/23 02:33 ALT 14 U/L (0-41) 08/16/23 02:33 Alkaline Phosphatase 83 U/L (40-130) 08/16/23 02:33 Total Protein 6.4 g/dL (6.6-8.7) L 08/16/23 02:33 Albumin 4.0 g/dL (3.5-5.2) 08/16/23 02:33 Globulin 2.4 g/dL (1.3-4.6) 08/16/23 02:33 Lipase 115 U/L (13-60) H 08/16/23 02:33 Urine Color Yellow (Yellow) 08/16/23 02:17 Urine Appearance Clear (CLEAR) 08/16/23 02:17 Urine pH 6 (5-7) 08/16/23 02:17 Ur Specific [place] 1.020 (1.005-1.030) 08/16/23 02:17 Urine Protein 3+ (Negative) H 08/16/23 02:17 Urine Glucose (UA) 4+ (Normal) H 08/16/23 02:17 Urine Ketones Negative (Negative) 08/16/23 02:17 Urine Blood Neg (Negative) 08/16/23 02:17 Urine Nitrate Negative (Negative) 08/16/23 02:17 Urine Bilirubin Neg (Negative) 08/16/23 02:17 Urine Urobilinogen 1 mg/dL (Negative) H 08/16/23 02:17 Ur Leukocyte Esterase Negative (Negative) 08/16/23 02:17 Urine RBC Rare /hpf (0-2) 08/16/23 02:17 Urine WBC Rare /hpf (0-5) 08/16/23 02:17 Ur Squamous Epith Cells Rare /hpf (0-5) 08/16/23 02:17 Amorphous Sediment 1+ /hpf 08/16/23 02:17 Urine Bacteria None /hpf (NONE) 08/16/23 02:17 Urine Mucus 2+ /hpf 08/16/23 02:17 All radiology interpretation(s) finalized by discharge Discharge Plan Discharge Patient Disposition: Home Clinical Impression: Pancreatitis Condition: Stable Prescriptions: New ketorolac 10 mg tablet 10 mg PO TID PRN (Reason: pain) Qty: 10 0RF Percocet 7.5-325 mg tablet 1 tab PO Q6H PRN (Reason: pain) Qty: 7 0RF ondansetron 4 mg film 4 mg PO DAILY PRN (Reason: nausea and vomiting) Qty: 10 0RF No Action glipizide 5 mg tablet See Rx Instructions PO BID 90 Days Qty: 180 0RF Rx Instructions: TAKE 1 TABLET BY MOUTH WITH BREAKFAST AND TWO TABS WITH SUPPER gabapentin 100 mg capsule 100 - 200 mg PO BEDTIME 30 Days Qty: 60 0RF lisinopril 20 mg tablet 20 mg PO BEDTIME ondansetron HCl 4 mg tablet 4 mg PO Q6H PRN (Reason: nausea and vomiting) Qty: 20 0RF Discharge Orders: Discharge ED (Routine); Ordered 08/16/23 Ordered By: Aldo Bolivar Referrals: Diya Payne, GROCERY SUPERVISOR [Primary Care Provider] - 1-3 days Patient Instructions: Pancreatitis (ED), Opioid Safety, Pain Management Activity Restrictions/Additional Instructions: Liquid diet for at least the next 48 hours. Pain control as necessary. Return for fever greater than 100, vomiting liquids or medications, uncontrolled pain despite treatment, other concerning symptoms. Coding Level of Care Code ED Skin Lifter Bacon for Chg Bryan
[2023-08-16] MEDS: ketorolac 30 mg/mL INJ IVP (02:52)
[2023-08-16 03:00] LABS: Alanine Aminotransferase 14 U/L (0-41); Alkaline Phosphatase 83 U/L (40-130); Anion Gap 12.9 (5-19); Aspartate Amino Transferase 15 U/L (0-40); Blood Urea Nitrogen 17 mg/dL (6-20); Calcium 8.4 mg/dL (8.5-10.5); Carbon Dioxide 26 mmol/L (22-29); Chloride 102 mmol/L (98-107); Globulin 2.4 g/dL (1.3-4.6); Glomerular Filtration Rate 126.2 mL/min (90-130); Glucose 280 mg/dL (65-115); Lipase 115 U/L (13-60); Osmolality Calculated 296 mOsm/kg (285-295); Potassium 3.9 mmol/L (3.5-5.1); Sodium 137 mmol/L (136-145); Total Bilirubin 0.5 mg/dL (0.15-1.2); Total Protein 6.4 g/dL (6.6-8.7)
== END 2023-08-16 04:26 | disposition home or self-care (01) ==
PROVIDERS: Emergency Provider Emergency Medicine; PCP Registered Nurse
DX: K85.90 Acute pancreatitis without necrosis or infection, unspecified (principal); Z79.84 Long term (current) use of oral hypoglycemic drugs; E11.9 Type 2 diabetes mellitus without complications; I10 Essential (primary) hypertension; Z72.0 Tobacco use
CPT/HCPCS: 36415; 76705; 80053; 81001; 83690; 85025; 96374; 96375; 99284; J1885; J2270; J2405; J7030

== ENCOUNTER 2023-11-14 16:29 | Emergency (ER) | payer OTHER, SELFPAY ==
[2023-11-14 16:35] VITALS: BP 132/92; PULSE 103; RESP 18; TEMP 37; O2SAT 97
--- NOTE | 2023-11-14 17:44 | W.ED.GENADLT ---
HPI - General Adult General: Chief complaint: General Medical Stated complaint: diiblionel exposed to Asbestos Time Seen by Provider: 11/14/23 17:40 History of Present Illness: Patient is in today for exposure to possible asbestos. 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 He reports that he is breathing fine he has no issues except for that he is itchy. He states that his company doctor wanted him to go to the urgent care. He reports that they called urgent care and urgent care told him that he would have to have a chest x-ray he needed to come to the ER. Patient denies any difficulty breathing. He states that he is just itchy because he has not washed it off of him or changed his clothes Associated symptoms: Deny chest pain, dyspnea or palpitations Review of Systems Card: Denies: chest pain, palpitations or irregular heart rhythm Resp: Denies: dyspnea, productive cough, non-productive cough, wheezing or stridor PFS ED PFSH: Medical History Insomnia disorder Depression Hypertension Diabetes mellitus type 2 in obese Surgical History History of incision and drainage Left forearm 2017 Hx of cardiac cath 02/2014 Family History Father Diabetes Mother Diabetes Social History Smoking and tobacco/nicotine status: current every day tobacco/nicotine user Alcohol intake: never Substance/Drug Use: never Adopted: No Caregiver/support person: No Lives independently: No service: No Current occupational status: employed Sexually active: Yes Do you think of yourself as: Straight/Heterosexual Current gender identity: Male Physical Exam Const: COMMON NORMALS: no acute distress, average body habitus, patient oriented x3, alert and well nourished Neck/C-Spine: COMMON NORMALS: no JVD Resp: COMMON NORMALS: normal respiratory effort, No retractions, No use of accessory muscles and clear to auscultation bilaterally AUSCULTATION: clear to auscultation bilaterally Cardio: COMMON NORMALS: no JVD, regular rhythm, S1 normal heart sound present and S2 normal heart sound present RHYTHM: regular rhythm HEART SOUNDS: S1 normal heart sound present and S2 normal heart sound present Neuro: COMMON NORMALS: patient oriented x3 and moves all extremities SENSORIUM/ORIENTATION: Yes alert Course Vital Signs: Vital signs: Vital Signs Temperature 98.6 F 11/14/23 16:35 Pulse Rate 103 H 11/14/23 16:35 Respiratory Rate 18 11/14/23 16:35 Blood Pressure 132/92 11/14/23 16:35 Pulse Oximetry 97 11/14/23 16:35 Oxygen Delivery Me thod Room Air 11/14/23 16:35 MDM - General Adult Medical Decision Making Consider exposure to possible asbestos through work related exposure. I had a lengthy discussion with the patient regarding the risk of asbestosis exposure. We discussed that complication typically develop years down the road if he were going to have any. A one-time low-level exposure has a lower risk of future complications but it is something that he should make his primary care provider aware of and continue to monitor for. The patient is not having any respiratory symptoms at this time. He is itchy on his skin and in his nose but states that he still has the dust all over him. At this time, I do not believe a chest x-ray is indicated and the patient is agreeable. Advised him to continue to follow-up with his work physician. Return to the ER as needed for any new symptoms. Encouraged him to go home and straightaway and shower and wash his close in hot soapy water. No radiology studies performed this visit Discharge Plan Discharge Patient Disposition: Home Clinical Impression: Suspected exposure to asbestos Condition: Stable Prescriptions: No Action Januvia 50 mg tablet 50 mg PO DAILY 90 Days Qty: 90 0RF Rx Instructions: 340B (pt has no insurance) gabapentin 300 mg capsule 300 mg PO DAILY 30 Days Qty: 30 0RF lisinopril 20 mg tablet 20 mg PO BEDTIME ondansetron HCl 4 mg tablet 4 mg PO Q6H PRN (Reason: nausea and vomiting) Qty: 20 0RF ketorolac 10 mg tablet 10 mg PO TID PRN (Reason: pain) Qty: 10 0RF Percocet 7.5-325 mg tablet 1 tab PO Q6H PRN (Reason: pain) Qty: 7 0RF ondansetron 4 mg film 4 mg PO DAILY PRN (Reason: nausea and vomiting) Qty: 10 0RF Discharge Orders: Discharge ED (Routine); Ordered 11/14/23 Ordered By: Rain Hendrix Referrals: Diya Payne FNP [Primary Care Provider] - Discharge Diet: Usual diet Discharge Activity: Resume usual activity Activity Restrictions/Additional Instructions: At this time your physical exam is unremarkable and your vital signs are stable. Itching that you are having is likely from the dust in general that is on your body and your clothing. I recommend going home and showering well. Wash clothes well in hot soapy water. Continue follow-up with your company provider if needed, but as we discussed exposure to asbestosis can cause complications in the future typically 10 to 40 years later and not necessarily immediate complications. A one-time low-level exposure holds a lower risk of later complications. This is something that you should continue to make your primary care provider aware of and follow-up as needed should any symptoms arise in the future. Return to the ER as needed for new or worsening symptoms Coding Level of Care Code ED Visitor Services Technician for Skye Adams
== END 2023-11-14 17:53 | disposition home or self-care (01) ==
PROVIDERS: Emergency Provider Nurse Practitioner Family; PCP Registered Nurse
DX: Z77.090 Contact with and (suspected) exposure to asbestos (principal); I10 Essential (primary) hypertension; E11.9 Type 2 diabetes mellitus without complications; Z72.0 Tobacco use
CPT/HCPCS: 99281

== ENCOUNTER 2024-03-25 11:20 | Inpatient (IN) | payer BC, SELFPAY ==
[2024-03-25] VITALS (33 sets, daily range): BP systolic 150–205; BP diastolic 80–114; PULSE 60–97; RESP 16–33; TEMP 36.4; O2SAT 88–100; BMI 29.9; BMI 28.1
[2024-03-25 11:40] LABS: Glucose Point of Care 473 mg/dL (70-110)
--- NOTE | 2024-03-25 12:07 | CT_ITS ---
WS: [id number] CT HEAD TECHNIQUE: Noncontrast CT of the head obtained from the skullbase to the vertex. CLINICAL INFORMATION: syncope with facial numbness COMPARISON: None. DLP: 1103.[address] scans at [facility] use at least one of these dose optimization techniques: automated e xposure control; mA and/or kV adjustment per patient size (includes targeted exams where dose is matc hed to clinical indication); or iterative reconstruction. FINDINGS: No evidence of intracranial hemorrhage or mass effect. Ventricular system and basal cisterns are rubin nt. No extra-axial fluid collections. No evidence of mass or mass effect. Normal mcnamara-white different iation. Trace mucosal thickening in the ethmoid air cells. Mastoid air cells are well aerated. CT/CT head wo con* [id number] IMPRESSION: 1. No evidence of intracranial hemorrhage or mass effect. 2. No acute intracranial findings.
--- NOTE | 2024-03-25 12:07 | XRR_ITS ---
PROCEDURE INFORMATION: Exam: XR Chest Exam date and time: 03/25/2024 12:26 PM Age: 38 years old Clinical indication: Other: Syncope. No history of recent trauma or surgery is provided. TECHNIQUE: Imaging protocol: Radiologic exam of the chest. 1image(s) are provided. Views: 1 view. COMPARISON: 1. CR XR chest 1V portable [id number] 07/22/2023 12:13 PM 2. CR XR chest 1V [id number] 05/28/2019 9:36 AM FINDINGS: Lungs: No lobar consolidation is appreciated. Pleural spaces: No pneumothorax or significant pleural effusion is appreciated. Heart/Mediastinum: The cardiomediastinal silhouette is within normal. No cardiac decompensation is appreciated. Diaphragm: The hemidiaphragms are symmetric. Bones/joints: Osseous alignment is maintained. No interval displaced fracture or dislocation is appreciated. There appear to be some mild degenerative changes of the acromioclavicular junctions. Soft tissues: No radiopaque foreign body or subcutaneous emphysema is appreciated. Other findings: No other significant interval changes are appreciated. XR/XR chest 1V portable [id number] IMPRESSION: No lobar consolidation is appreciated.No interval acute cardiopulmonary changes are appreciated.
--- NOTE | 2024-03-25 12:09 | ECG_ITS ---
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 Measurements Intervals [place] Rate: 69 P: 55 MS: 161 QRS: 47 QRSD: 96 T: 73 QT: 410 QTc: 440 Interpretive Statements SINUS RHYTHM POSSIBLE LEFT ATRIAL ENLARGEMENT [-0.1mV P-WAVE IN V1/V2] Compared to ECG 07/22/2023 11:57:06 T-wave abnormality no longer present Electronically Signed On 03-25-2024 22:00:56 CDT by Dk Clement M.D. [email or web address]
--- NOTE | 2024-03-25 12:15 | ED_ITS ---
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 Associated symptoms: Reports confusion; Deny chest pain, dyspnea, headache(s), malaise, nausea, rash, palpitations or vomiting Review of Systems 2 General: Reports: 10 or more systems reviewed and unremarkable except in HPI and below Const: Denies: fever(s), chills, fatigue or malaise Eyes: Denies: change in vision or blurry vision Card: Denies: chest pain or palpitations Resp: Denies: dyspnea or productive cough GI: Denies: abdominal pain, nausea or vomiting : Denies: flank pain Musc: Denies: extremity pain or extremity swelling Skin/Breast: Denies: rash or pruritus Neuro: Reports: weakness in extremities, lack of coordination, difficulty walking, confusion and Slurred speech present; Denies: headache(s) Psych: Denies: anxiety or depression Olvin/Lymph: Denies: easy bleeding All/Imm: Denies: urticaria, throat swelling or facial swelling PFSH ED 2 PFSH: Medical History Insomnia disorder Depression Hypertension Diabetes mellitus type 2 in obese Surgical History History of incision and drainage Left forearm 2017 Hx of cardiac cath 02/2014 Family History Father Diabetes Mother Diabetes Social History Smoking and tobacco/nicotine status: current every day tobacco/nicotine user Alcohol intake: never Substance/Drug Use: never Adopted: No Caregiver/support person: No Lives independently: No service: No Current occupational status: employed Sexually active: Yes Do you think of yourself as: Straight/Heterosexual Current gender identity: Male Physical Exam 2 Narrative: EXAM NARRATIVE: Patient does appear to be very diaphoretic on exam he is sweating profusely on exam concerns for heat exhaustion versus heat stroke is apparent no focal neurodeficit appreciated besides some subjective right-sided facial numbness no weakness apparent Const: COMMON NORMALS: patient oriented x3 and healthy appearing; apparent distress (Patient appears to be diaphoretic on exam he is arousable to painful stimul) HENMT: COMMON NORMALS: normocephalic and atraumatic HEAD & SCALP: n ormocephalic and atraumatic Eye: COMMON NORMALS: Equal, round and reactive pupils present and EOMs intact bilaterally PUPIL: Yes Equal, round and reactive pupils present Neck/C-Spine: COMMON NORMALS: full ROM, supple and no JVD Lymph: LYMPHATIC: no lymphadenopathy noted Chest: COMMONS NORMALS: normal inspection of the chest and normal palpation of entire chest wall Resp: COMMON NORMALS: normal respiratory effort, No retractions and clear to auscultation bilaterally EFFORT & INSPECTION: Yes able to speak in complete sentences and Yes symmetric chest movement AUSCULTATION: clear to auscultation bilaterally Cardio: COMMON NORMALS: no JVD and regular rhythm; negative for regular rate (Mild sinus tachycardia appreciated on exam) RATE: abnormal rate (Mild sinus tachycardia appreciated on exam) RHYTHM: regular rhythm GI: COMMON NORMALS: Normal to inspection, nondistended, normoactive bowel sounds present, Soft to palpation and non-tender INSPECTION: Yes normal to inspection PALPATION: Yes Soft to palpation : COMMON NORMALS: Yes no CVA tenderness BLADDER/KIDNEY EXAM: Yes no CVA tenderness Back/Pelvis: COMMON NORMALS: no CVA tenderness Extremity: COMMON NORMALS: normal to inspection and full ROM Neuro: COMMON NORMALS: patient oriented x3, CN's II-XII intact bilaterally, moves all extremities and no focal motor deficits Psych: COMMON NORMALS: mental status grossly normal, Normal thought process present, cooperative and normal affect THOUGHT PROCESS: Normal thought process present Skin: COMMON NORMALS: no rashes or lesions noted GENERAL SKIN EXAM: no rashes or lesions noted Course 2 Vital Signs: Vital signs: Vital Signs Temperature 97.6 F 03/25/24 11:26 Pulse Rate 60 03/25/24 14:36 Respiratory Rate 16 03/25/24 11:26 Blood Pressure 156/80 03/25/24 14:36 Pulse Oximetry 96 03/25/24 14:36 Oxygen Delivery Me thod Room Air 03/25/24 13:34 MDM - General Adult Medical Decision Making Due to patient's symptoms and condition lab work and imaging will be obtained will continue to follow IV fluids provided for hydration. Lab work imaging came back reassuring except the initial lactic acid is found to be elevated repeat lactic acid was found to be less than 2 patient was provided several liters of 0.9 normal saline as he appeared to be heat exhaustion heatstroke his blood sugar did continue main elevated however per talking to his family he just reinitiated back on his diabetes type 2 medications in which he has been noncompliant with patient is stable for discharge home with no obvious cardiac or neurological impairment or underlying condition was noted. Patient will be discharged home with additional antiemetics advised to continue pushing p.o. intake of oral fluids and was advised to return the interim if any of his symptoms persist or worsen otherwise follow-up with his primary care doctor for further evaluation management of his hyperglycemia and his diabetes type 2 medication regimen. Patient advised to return the interim if any of his symptoms persist or worse. Lab Data 03/25/24 11:42 03/25/24 11:42 Radiology Impressions Chest X-Ray 03/25/24 12:07 IMPRESSION: No lobar consolidation is appreciated.No interval acute cardiopulmonary changes are appreciated. Head CT 03/25/24 12:07 IMPRESSION: 1. No evidence of intracranial hemorrhage or mass effect. 2. No acute intracranial findings. Laboratory Results WBC 13.77 10^3/uL (3.29-11.43) H 03/25/24 11:42 RBC 6.76 10^6/uL (3.85-5.65) H 03/25/24 11:42 Hgb 19.40 g/dL (11.27-16.99) H 03/25/24 11:42 Hct 57.2 % (37-53) H 03/25/24 11:42 MCV 84.6 fl (82-101) 03/25/24 11:42 MCH 28.7 pg (27-33) 03/25/24 11:42 MCHC 33.9 g/dL (30-55) 03/25/24 11:42 RDW 13.6 % (12.1-15.1) 03/25/24 11:42 Plt Count 283 10^3/cmm (157-399) 03/25/24 11:42 MPV 9.8 fL (7.4-10.4) 03/25/24 11:42 Neut % (Auto) 57.7 % 03/25/24 11:42 Lymph % (Auto) 34.4 % 03/25/24 11:42 Butts % (Auto) 5.0 % 03/25/24 11:42 Eos % (Auto) 1.5 % 03/25/24 11:42 Baso % (Auto) 0.7 % 03/25/24 11:42 Neut # (Auto) 7.94 10^3/uL (1.8-7.7) H 03/25/24 11:42 Lymph # (Auto) 4.7 10^3/uL (0.8-4.8) 03/25/24 11:42 Butts # (Auto) 0.7 10^3/uL (0.2-0.9) 03/25/24 11:42 Eos # (Auto) 0.2 10^3/uL (0.0-0.8) 03/25/24 11:42 Baso # (Auto) 0.1 10^3/uL (0.0-0.1) 03/25/24 11:42 Nucleated RBC % (auto) 0 % 03/25/24 11:42 Nucleated RBCs # 0.0 /100WBC 03/25/24 11:42 Specimen Type Arterial 03/25/24 12:22 Sample Site Radial, right 03/25/24 12:22 ABG pH 7.38 (7.35-7.45) 03/25/24 12:22 ABG pCO2 39.6 mmHg (35-45) 03/25/24 12:22 ABG pO2 84.5 mmHg (80.0-100.0) 03/25/24 12:22 ABG PO2/FiO2 Ratio 0 03/25/24 12:22 ABG HCO3 23.6 mmol/L (22-26) 03/25/24 12:22 ABG Base Excess -1.3 mmol/L (-2.0-2.0) 03/25/24 12:22 Gerard Test N/a 03/25/24 12:22 Hematocrit 59.3 % (42-52) H 03/25/24 12:22 O2 Delivery Device Nc 03/25/24 12:22 O2 Liters/Min 3.0 % 03/25/24 12:22 FiO2 32.0 % 03/25/24 12:22 Telephone Switchboard Operator ID Maria 03/25/24 12:22 Sodium 135 mmol/L (136-145) L 03/25/24 11:42 Potassium 4.0 mmol/L (3.5-5.1) 03/25/24 11:42 Chloride 95 mmol/L (98-107) L 03/25/24 11:42 Carbon Dioxide 19 mmol/L (22-29) L 03/25/24 11:42 Anion Gap 25.0 (5-19) H 03/25/24 11:42 BUN 15 mg/dL (6-20) 03/25/24 11:42 Creatinine 0.7 mg/dL (0.7-1.2) 03/25/24 11:42 GFR Calculation 125.5 mL/min (90-130) 03/25/24 11:42 Glucose 462 mg/dL (65-115) H 03/25/24 11:42 POC Glucose 473 mg/dL (70-110) H 03/25/24 11:37 Calculated Osmolality 301 mOsm/kg (285-295) H 03/25/24 11:42 Lactic Acid 3.3 mmol/L (0.5-2.2) H 03/25/24 11:42 Lactic Acid (Sepsis) 1.5 mmol/L (0.5-2.2) 03/25/24 14:54 Calcium 9.9 mg/dL (8.5-10.5) 03/25/24 11:42 Total Bilirubin 0.6 mg/dL (0.15-1.2) 03/25/24 11:42 AST 14 U/L (0-40) 03/25/24 11:42 ALT 24 U/L (0-41) 03/25/24 11:42 Alkaline Phosphatase 136 U/L (40-130) H 03/25/24 11:42 Creatine Kinase 64 U/L (39-308) 03/25/24 11:42 Troponin T Baseline 7 ng/L (0-15) 03/25/24 11:42 Troponin T 120 Minute 6.73 ng/L (0-15) 03/25/24 13:09 Delta Troponin T -0.27 ABS# (0-10) L 03/25/24 13:09 C-Reactive Protein 4.5 mg/L (0.0-4.9) 03/25/24 11:42 NT-Pro-B Natriuret Pep < 36 pg/mL (0-125) 03/25/24 11:42 Total Protein 8.0 g/dL (6.6-8.7) 03/25/24 11:42 Albumin 4.9 g/dL (3.5-5.2) 03/25/24 11:42 Globulin 3.1 g/dL (1.3-4.6) 03/25/24 11:42 Lipase 26 U/L (13-60) 03/25/24 11:42 Urine Color Yellow (Yellow) 03/25/24 13:14 Urine Appearance Clear (CLEAR) 03/25/24 13:14 Urine pH 5 (5-7) 03/25/24 13:14 Ur Specific [place] 1.010 (1.005-1.030) 03/25/24 13:14 Urine Protein 3+ (Negative) H 03/25/24 13:14 Urine Glucose (UA) 4+ (Normal) H 03/25/24 13:14 Urine Ketones 1+ (Negative) H 03/25/24 13:14 Urine Blood Neg (Negative) 03/25/24 13:14 Urine Nitrate Negative (Negative) 03/25/24 13:14 Urine Bilirubin Neg (Negative) 03/25/24 13:14 Urine Urobilinogen Norm mg/dL (Negative) 03/25/24 13:14 Ur Leukocyte Esterase Negative (Negative) 03/25/24 13:14 Urine RBC Rare /hpf (0-2) 03/25/24 13:14 Urine WBC None /hpf (0-5) 03/25/24 13:14 Ur Squamous Epith Cells None /hpf (0-5) 03/25/24 13:14 Amorphous Sediment Not Reportable 03/25/24 13:14 Urine Bacteria None /hpf (NONE) 03/25/24 13:14 Urine Opiates Screen Negative ng/mL (Negative) 03/25/24 13:14 Ur Barbiturates Screen Negative ng/mL (Negative) 03/25/24 13:14 Ur Phencyclidine Scrn Negative ng/mL (Negative) 03/25/24 13:14 Ur Amphetamines Screen Negative ng/mL (Negative) 03/25/24 13:14 U Benzodiazepines Scrn Negative ng/mL (Negative) 03/25/24 13:14 Urine Cocaine Screen Negative ng/mL (Negative) 03/25/24 13:14 U Marijuana (THC) Screen Negative ng/mL (Negative) 03/25/24 13:14 Serum Ketones Negative (Negative) 03/25/24 11:42 All radiology interpretation(s) finalized by discharge Discharge Plan Discharge Patient Disposition: Home Clinical Impression: Heatstroke, Hyperglycemia due to type 2 diabetes mellitus, Hx of medication noncompliance Condition: Stable Prescriptions: New ondansetron 4 mg tablet,disintegrating 4 mg PO TID PRN (Reason: nausea and vomiting) 4 Days Qty: 20 0RF No Action Januvia 50 mg tablet 50 mg PO DAILY 90 Days Qty: 90 0RF Rx Instructions: 340B (pt has no insurance) lisinopril 20 mg tablet 20 mg PO BEDTIME fluconazole 150 mg tablet 150 mg PO Q7D Antifungal (clotrimazole) 1 % cream 1 applic TOPICAL BID glipizide 5 mg Tablet 5 mg PO BID Discharge Orders: Discharge ED (Routine); Ordered 03/25/24 Ordered By: Jet Archuleta Referrals: Diya Payne, [facility] [Primary Care Provider] - 1-3 days Discharge Diet: Advance as tolerated Discharge Activity: Limit activity as instructed Patient Instructions: Hyperglycemia, Heatstroke (ED), Diabetic Hyperglycemia (ED) Activity Restrictions/Additional Instructions: It is recommended for you to further follow-up your primary care doctor in next 1 to 3 days for further evaluation management of your hyperglycemia and your medications for it today you have had been found to have a heatstroke the symptoms will resolve with time is recommended. Encouraged to drink sports related drinks like Powerade or Gatorade mixed in with water to fully hydrate over the next several days. Prior to having any additional high intensity work in the sun until cleared by your primary care doctor. Coding Level of Care Code ED Corporate Scheduler for Skye Adams
[2024-03-25 12:23] LABS: Basophils # 0.1 10^3/uL (0.0-0.1); Basophils % 0.7 %; Eosinophils # 0.2 10^3/uL (0.0-0.8); Eosinophils % 1.5 %; Hematocrit 57.2 % (37-53); Lymphocytes # 4.7 10^3/uL (0.8-4.8); Lymphocytes % 34.4 %; Mean Corpuscular HGB Conc 33.9 g/dL (30-55); Mean Corpuscular Hemoglobin 28.7 pg (27-33); Mean Corpuscular Volume 84.6 fl (82-101); Mean Platelet Volume 9.8 fL (7.4-10.4); Monocytes # 0.7 10^3/uL (0.2-0.9); Neutrophils # 7.94 10^3/uL (1.8-7.7); Neutrophils % 57.7 %; Nucleated Red Blood Cells % 0 %; Platelet Count 283 10^3/cmm (157-399); Red Blood Count 6.76 10^6/uL (3.85-5.65); Red Cell Distribution Width 13.6 % (12.1-15.1); White Blood Count 13.77 10^3/uL (3.29-11.43)
[2024-03-25] MEDS: ondansetron 2 mg/ML SDV 2 mL 4 MG IVP ×2 (12:31→20:04)
[2024-03-25] MEDS: sodium chloride 0.9% 1,000 ML 150 ML IV ×2 (12:31→21:35)
[2024-03-25] MEDS: sodium chloride 0.9% 1,000 ML 999 ML IV ×2 (12:31→13:45)
[2024-03-25 12:36] LABS: ABG PCO2 39.6 mmHg (35-45); ABG PH Result 7.38 (7.35-7.45); Arterial Blood Gas Hematocrit 59.3 % (42-52); Base Excess ABG -1.3 mmol/L (-2.0-2.0); Blood Gas Operator Identificat MONRO; Blood Gas Sample Site Radial, right; Blood Gas Sample Type Arterial; HCO3 ABG 23.6 mmol/L (22-26); Oxygen Device NC; PO2 ABG 84.5 mmHg (80.0-100.0); PO2 FiO2 Ratio Arterial Blood 0
[2024-03-25 12:37] LABS: Ketone (Acetest) Serum Negative (Negative)
[2024-03-25 12:44] LABS: Troponin(5th) Baseline 7 ng/L (0-15)
[2024-03-25 12:47] LABS: Lactic Sepsis W/Reflex 3.3 mmol/L (0.5-2.2)
[2024-03-25 12:50] LABS: Creatine Phosphokinase 64 U/L (39-308)
[2024-03-25 13:03] LABS: Alanine Aminotransferase 24 U/L (0-41); Albumin Level 4.9 g/dL (3.5-5.2); Alkaline Phosphatase 136 U/L (40-130); Aspartate Amino Transferase 14 U/L (0-40); Blood Urea Nitrogen 15 mg/dL (6-20); C Reactive Protein 4.5 mg/L (0.0-4.9); Calcium 9.9 mg/dL (8.5-10.5); Carbon Dioxide 19 mmol/L (22-29); Chloride 95 mmol/L (98-107); Creatinine Clr Calc Pharmacy 178.6057; Globulin 3.1 g/dL (1.3-4.6); Glomerular Filtration Rate 125.5 mL/min (90-130); Glucose 462 mg/dL (65-115); Lipase 26 U/L (13-60); NT Pro B Type Natriuretic Pept < 36 pg/mL (0-125); Osmolality Calculated 301 mOsm/kg (285-295); Sodium 135 mmol/L (136-145); Total Bilirubin 0.6 mg/dL (0.15-1.2)
[2024-03-25 13:31] LABS: Amphetamines Screen Urine Negative (Negative); Barbiturates Screen Urine Negative (Negative); Benzodiazepines Screen Urine Negative (Negative); Cocaine Screen Urine Negative (Negative); Opiate Screen Urine Negative (Negative); PCP Screen Urine Negative (Negative); THC Screen Urine Negative (Negative)
[2024-03-25 13:41] LABS: Troponin 5 2HR 6.73 ng/L (0-15)
[2024-03-25 13:42] LABS: Troponin 5 2HR Delta -0.27 ABS# (0-10)
[2024-03-25 13:50] LABS: Add Urine Microscopic? YES; Bilirubin Urine Neg (Negative); Blood Urine Neg (Negative); Glucose Urine UA 4+ (Normal); Ketones Urine 1+ (Negative); Leukocyte Esterase Urine Negative (Negative); Nitrate Urine Negative (Negative); Protein Urine 3+ (Negative); RBC Urine RARE /hpf (0-2); Urine Appearance Clear (CLEAR); Urine Color Yellow (Yellow); Urobilinogen Urine Norm (Negative); pH Urine 5 (5-7)
[2024-03-25 14:05] LABS: Reflex Lactate Order REFLEX LACTIC ORDERD
--- NOTE | 2024-03-25 14:08 | ECG_ITS ---
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 Measurements Intervals [place] Rate: 66 P: 54 MN: 163 QRS: 64 QRSD: 97 T: 64 QT: 412 QTc: 434 Interpretive Statements SINUS RHYTHM WITH SINUS ARRHYTHMIA Compared to ECG 03/25/2024 12:42:59 No significant changes Electronically Signed On 03-25-2024 22:11:29 CDT by Dk Clement M.D. [id number]
[2024-03-25 15:15] LABS: Lactic Acid level (Lactate) 1.5 mmol/L (0.5-2.2)
[2024-03-25] MEDS: acetaminophen 325 mg Tablet 650 MG PO (15:26)
--- NOTE | 2024-03-25 17:13 | CTR_ITS ---
PROCEDURE INFORMATION: Exam: CTA Head Without And With Contrast, Arteriography Exam date and time: 03/25/2024 5:36 PM Age: 38 years old Clinical indication: Stroke-like symptoms; Altered mental status/memory loss TECHNIQUE: Imaging protocol: Computed tomographic angiography of the head without and with contrast. Exam focused on the arteries. 3D rendering (Not supervised by radiologist): MIP and/or 3D reconstructed images were created by the technologist. Radiation optimization: All CT scans at this facility use at least one of these dose optimization techniques: automated exposure control; mA and/or kV adjustment per patient size (includes targeted exams where dose is matched to clinical indication); or iterative reconstruction. Contrast material: OMNI 350; Contrast volume: 100 ml; Contrast route: INTRAVENOUS (IV); COMPARISON: No relevant prior studies available. RADIATION DOSE METRICS: Total DLP (mGy-cm): 1267.22 FINDINGS: ANTERIOR CIRCULATION: Right internal carotid artery: Intracranial segment is patent with no significant stenosis or occlusion. No aneurysm. Right middle cerebral artery: No occlusion or significant stenosis. No aneurysm. Right anterior cerebral artery: No occlusion or significant stenosis. No aneurysm. Left internal carotid artery: Intracranial segment is patent with no significant stenosis. No aneurysm. Left middle cerebral artery: No occlusion or significant stenosis. No aneurysm. Left anterior cerebral artery: No occlusion or significant stenosis. No aneurysm. POSTERIOR CIRCULATION: Right vertebral artery: Acute occlusion at the craniocervical junction with beak shaped termination of the flow rising concern for dissection. No aneurysm. No flow in the right PICA. Left vertebral artery: No occlusion. No aneurysm. Short segment of moderate stenosis at the origin of the left PICA (series 8, image 303) possibly with anterior noncalcified filling defect. Basilar artery: No occlusion or significant stenosis. No aneurysm. Right posterior cerebral artery: No occlusion or significant stenosis. No aneurysm. Left posterior cerebral artery: No occlusion or significant stenosis. No aneurysm. HEAD: Brain: No hemorrhage. No mass effect. Questionable hypodensity in the central and right aspect of the dimitris (series 3 image 12-13). Questionable hypodensity in the paramedian aspect inferiorly in the right cerebellar hemisphere (series 3 image 9-12). Cerebral ventricles: Normal. No ventriculomegaly. Bones: Unremarkable. No acute fracture. Paranasal sinuses: Visualized sinuses are normal. No fluid levels. Mastoid air cells: Visualized mastoids are normal. No mastoid effusion. Soft tissues: Unremarkable. DARIN at 6:10 PM CDT on 03/25/2024. The findings were acknowledged and understood. PROCEDURE INFORMATION: Exam: CTA Neck With Contrast Exam date and time: 03/25/2024 5:36 PM Age: 38 years old Clinical indication: Stroke-like symptoms; Altered mental status/memory loss TECHNIQUE: Imaging protocol: Computed tomographic angiography of the neck with contrast. Exam focused on the cervical segments of the vasculature. 3D rendering (Not supervised by radiologist): MIP and/or 3D reconstructed images were created by the technologist. Radiation optimization: All CT scans at this facility use at least one of these dose optimization techniques: automated exposure control; mA and/or kV adjustment per patient size (includes targeted exams where dose is matched to clinical indication); or iterative reconstruction. Contrast material: OMNI 350; Contrast volume: 100 ml; Contrast route: INTRAVENOUS (IV); COMPARISON: CR XR chest 1V portable [id number] 03/25/2024 12:26 PM RADIATION DOSE METRICS: Total DLP (mGy-cm): 1267.22 FINDINGS: Right common carotid artery: No significant stenosis. No dissection or occlusion. Right internal carotid artery: Extracranial segment is patent with no significant stenosis. No dissection or occlusion. Right external carotid artery: No occlusion or significant stenosis. Left common carotid artery: No significant stenosis. No dissection or occlusion. Left internal carotid artery: Extracranial segment is patent with no significant stenosis. No dissection or occlusion. Left external carotid artery: No occlusion or significant stenosis. Right vertebral artery: No significant stenosis. No dissection or occlusion. Left vertebral artery: No significant stenosis. No dissection or occlusion. Soft tissues: Right vestibulum of the oral cavity is significantly dilated with air bulging the right cheek. Bones/joints: No acute fracture. CT/CT angio headneck* [id number] IMPRESSION: 1. No large vessel occlusion in the anterior intracranial arteries. 2. Acute occlusion of the right vertebral artery at the craniocervical junction suspicious for dissection. The right PICA is occluded. Short segment of moderate stenosis in the left V4 segment with questionable noncalcified filling defect at the origin of PICA with no occlusion of the left PICA. 3. Ill-defined hypodensity suspected in the central and right aspect of the dimitris and in the inferior paramedian aspect of the right cerebellar hemisphere. In the setting of right vertebral occlusion these findings are concerning for acute infarction involving the brainstem and the cerebellum. ASSESSMENT: ASPECTS ([place] Stroke Program Early CT Score) is 10. THIS REPORT CONTAINS FINDINGS THAT MAY BE CRITICAL TO PATIENT CARE. The findings were verbally communicated via telephone conference with MYRNA, IMPRESSION: 1. No carotid stenosis. No vertebral occlusion or stenosis. 2. Right vestibulum of the oral cavity is significantly dilated with air bulging the right cheek for correlation with physical exam. REFERENCES: NASCET CRITERIA. The degree of stenosis in the cervical segment of the internal carotid artery is based on NASCET criteria. Normal is no stenosis. Mild is less than 50% stenosis. Moderate is 50-69% stenosis. Severe is 70% to 99% stenosis. Total occlusion is no detectable patent lumen.
[2024-03-25] MEDS: iohexol 350 mg/mL 500 mL Btl (per mL) IV (17:49)
--- NOTE | 2024-03-25 17:50 | ECG_ITS ---
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 Measurements Intervals [place] Rate: 94 P: 58 MN: 172 QRS: 58 QRSD: 96 T: 66 QT: 307 QTc: 385 Interpretive Statements SINUS RHYTHM POSSIBLE LEFT ATRIAL ENLARGEMENT [-0.1mV P-WAVE IN V1/V2] NONSPECIFIC T-WAVE ABNORMALITY Compared to ECG 03/25/2024 14:08:35 T-wave abnormality now present Sinus arrhythmia no longer present Electronically Signed On 03-25-2024 22:04:46 CDT by Dk Clement M.D. [id number]
[2024-03-25 17:51] LABS: Glucose Point of Care 382 mg/dL (70-110)
--- NOTE | 2024-03-25 17:55 | PC.NURSE ---
UPON DISCHARGE THIS NURSE SAT PT UP IN BED AND NOTICED PT WAS UNABLE TO HOLD HIMSELF UP. THIS NURSE ATTEMPTED TO STAND PT UP AND HE WAS UNABLE TO HOLD HIS BALANCE. THIS NURSE NOTIFIED DR. NORRIS THAT PT WAS UNABLE TO SIT UP OR STAND. DR. NORRIS STATED TO HOLD DISCHARGE FOR FURTHER ASSESSMENT.
[2024-03-25 19:15] LABS: Ketone (Acetest) Serum Negative (Negative)
--- NOTE | 2024-03-25 20:13 | PC.NURSE ---
gave patient nausea medication , pt. states that he is comfortable and has no needs at this time
--- NOTE | 2024-03-25 20:27 | PM.SAN ---
Stroke Alert Activation ED Arrival Date: 03/25/24 ED Arrival Time: 11:26 Last Known Normal/at Baseline: 1-2 hours ago Other Last Known Well Infomation: This. The patient presented here at 1126 complaining of dizziness. He had been out working in the heat drinking only some Dr. Kurtz. He was evaluated by Dr. Cowan who found a NIH stroke scale score of 0. He was evaluated by Satya loo at 3 PM and there was an NIH stroke scale score of 0 recorded. Despite these findings on the medical record I could not find anyone who had done a careful neurologic exam after the initial exam performed at noon.The patient's mother thought that his right face was weak when he got here. He vomited several times today from dizziness. He was profoundly dehydrated on arrival and diagnosed with heat stroke. He has been laying in the bed in the dark because he was feeling bad all day and then the nursing staff got him up at 5:00 this evening to send him home and found he could not stand up. Dr. Archuleta called me and I came straight to the emergency department and establish that the patient had left-sided ataxia and profoundly abnormal eye movements with a 1-1/2 syndrome consisting of loss of eye movements to the right and a right internuclear ophthalmoplegia accompanied by left-sided numbness and left-sided ataxia consistent with a brainstem stroke. We went straight to CAT scan where his CT of the head was still normal as it had been earlier today. His CT angiogram shows right vertebral artery occlusion. After talking with the patient and getting agreement for transfer if indicated I called the 1 [phone] docs hotline and spoke with the neurologist on-call for stroke team, Dr. Toro. I had already pushed his images and she had reviewed them and saw the right vertebral artery occlusion. She indicated that there was no procedure available for treatment of a right vertebral artery occlusion and brainstem stroke other than treating with TNK up to 4-1/2 hours from last known well and we are certainly and unfortunately out of the window for that. Plan at this point is to place the patient in the hospital, flat on his back, treat with normal saline and manage his blood pressure permissively. I discussed this with Dr. Cowan. I went over risk factors for stroke with the patient and his mother. Stroke Alert Activated by: Dr. Archuleta Stroke Alert Activation Time: 17:18 Stroke MD @ Bedside Time: 17:25 NIH Stroke Scale Time: 17:25 NIH stroke score NIHSS: Level Of Consciousness - 1a: 0 Level Of Consciousness Questions - 1b: Both Correct Level Of Consciousness Commands - 1c: Both Correct Best Gaze - 2: Partial Gaze Palsy (Unable to look to the right and he has a right [place] (1 1/2 syndrome)) Visual Hairston - 3: No Visual Loss Facial Palsy - 4: Complete Paralysis (right peripheral 7th) Motor Arm Right - 5: No Drift Motor Arm Left - 5: No Drift Motor Leg Right - 6: No Drift Motor Leg Left - 6: No Drift Limb Ataxia - 7: Present In Two Limbs (left and right leg) Sensory - 8: Mild To Moderate Loss (left arm and face) Best Language - 9: No Aphasia Dysarthia - 10: Normal Extinction And Inattention - 11: 0 Score: Total Score: 7 Stroke Alert Data/Treatment Time to CT of Head: 12:07 CT Impression: normal. Nonspecific white matter changes. CT angiogram at 1713 observed by me on the monitor does show right vertebral artery occlusion at the skull base. The basilar artery filled by the left vertebral artery. The radiologist also noted occlusion of the right PICA and a short segment of moderate stenosis in the left vertebral artery with a filling defect at the origin of the left PICA without occlusion. The radiologist also noted early hypodensity in the dimitris and inferior right cerebellum Stroke Risk Factors: hypertension and diabetes mellitus tPA Contraindication: tPA Contraindication: Treatment not indcated tPA Admin Prior to Arrival: No Other Patient & Family Education: I went over the findings from the CTA with the patient and his mother. I went over stroke risk factors and went over the stroke book. Critical Care Time Critical Care Time: 105 - 134 mins A&P Assessment and plan (1) Right pontine stroke: Unfortunate hard-working diabetic hypertensive 38-year-old man who came in complaining of some numbness in the right side of his face and feeling dizzy. NIH stroke scale score was 0 on arrival and he was severely volume contracted and thought to be having a heatstroke. He was kept on IV fluids throughout the day and allowed to recover quietly on a stretcher. His last known normal was presumably when he arrived here at 1130 this morning. TNK contraindicated by last known normal time. I called [facility] in case they had a protocol for intra-arterial treatment and there is none. He is not a candidate for embolectomy because of location of his occlusion. Plan to admit and keep him on high flow IV fluids with normal saline. Treat the blood pressure permissively. I have raised the question with the patient whether this could be a dissection. 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 This could well be a dissection of the vertebral artery in which case any kind of aggressive treatment could potentially worsen his state. I have spent several hours in this patient's care this afternoon close I personally called the stroke team at [facility] and talked with the family and I reexamined the patient multiple times. (2) Occlusion of right vertebral artery: Coding Level of Care Code Acute Code for [facility] Fwd Diagnoses Right pontine stroke I63.50 Occlusion of right vertebral artery I65.01
--- NOTE | 2024-03-25 23:12 | P.HP_ITS ---
Providers/Chief Complaint 2 Admitting Physician: Meryl Mueller MD Primary Care Provider: HIMANSHU Ricks Chief Complaint: n/v dissy weak History of Present Illness Jarred Dangelo is a 38 year old male with a past medical history of diabetes mellitus, he has been out of prescription for his Sitagliptin recently, history of hypertension on lisinopril typically. Patient presented to the emergency room this morning at around 1130 complaining of dizziness. He had been working outdoors and initial impression was that of heatstroke. His NIH stroke scale upon admission was at 0. There was some complaint of weakness over his right face earlier in the morning. He continued to remain nauseous during the course of the day. He was being planned to be discharged at around 5 PM but was unable to stand up to get out of bed. He had now developed a left-sided ataxia and abnormal eye movements. Also complained of left-sided facial numbness which raise concern for a brainstem stroke. He was evaluated by neurology in the ER. He had a stat CT head and a CTA of the head and neck which showed right vertebral artery occlusion and a brainstem stroke. Case was discussed by Dr. Vance with neurology at [facility]. There was no procedure available for treatment of her right vertebral artery occlusion and brainstem stroke other than treating with TNK up to 4-1/2 hours from last well-known but patient was out of the window for the same. He is now being admitted to the hospital in view of brainstem stroke and close neuromonitoring. At the time of this assessment he continues to have persistent nausea and vomiting, preferring to lay in bed at this time. Review of Systems 2 General: Reports: 10 or more systems reviewed and unremarkable except in HPI and below Const: Denies: fever(s), chills or body aches Eyes: Denies: change in vision, blurry vision or photophobia ENMT: Reports: hoarseness; Denies: throat pain, enlarged tonsils, odynophagia or nasal congestion Card: Denies: chest pain, palpitations, irregular heart rhythm, edema, swelling of feet/ankles, lightheadedness, pre-syncope, dyspnea on exertion or orthopnea Resp: Denies: dyspnea, productive cough, non-productive cough, wheezing, stridor, pain on inspiration, change in phlegm color, hemoptysis or chest congestion GI: Denies: abdominal pain, nausea, vomiting, hematemesis, coffee ground emesis, dysphagia, heartburn, diarrhea, constipation, GI cramping, change in stool character, hematochezia or melena : Denies: flank pain, dysuria, urinary frequency, urinary urgency, urinary hesitancy or hematuria Musc: Denies: neck pain, back pain, extremity pain, joint swelling, joint warmth or deformity Neuro: Reports: dizziness; Denies: headache(s), numbness in extremities, weakness in extremities, sensory changes, difficulty walking, frequent falls, vertigo, behavioral changes, Slurred speech present or seizure-like activity Psych: Denies: anxiety, depression, suicidal ideation or homicidal ideation Endo: Denies: polyuria, polydipsia, tired all the time, cold intolerance or hot flashes Olvin/Lymph: Denies: easy bruising or easy bleeding Medications/Allergies Home Medications Medication Instructions Recorded Confirmed Last Taken Type lisinopril 20 mg tablet 20 mg PO BEDTIME 08/14/23 03/25/24 03/24/24 History sitagliptin phosphate 50 mg tablet 50 mg PO DAILY 90 days #90 tabs 08/20/23 03/25/24 Unknown Rx (Januvia) clotrimazole 1 % topical cream 1 applic topical BID 03/25/24 03/25/24 Unknown History (Antifungal (clotrimazole)) fluconazole 150 mg tablet 150 mg PO Q7D 03/25/24 03/25/24 Unknown History glipizide 5 mg tablet 5 mg PO BID 03/25/24 03/25/24 Unknown History ondansetron 4 mg disintegrating 4 mg PO TID PRN nausea and 03/25/24 Unknown Rx tablet vomiting 4 days #20 tabs Allergies Allergy/AdvReac Type Severity Reaction Status Date / Time No Known Allergies Allergy Verified 08/19/23 14:30 PFSH Acute 2 PFSH: Medical History Insomnia disorder Depression Hypertension Diabetes mellitus type 2 in obese Surgical History History of incision and drainage Left forearm 2017 Hx of cardiac cath 02/2014 Family History Father Diabetes Mother Diabetes Social History Smoking and tobacco/nicotine status: current every day tobacco/nicotine user Alcohol intake: never Substance/Drug Use: never Adopted: No Caregiver/support person: No Lives independently: No service: No Current occupational status: employed Sexually active: Yes Do you think of yourself as: Straight/Heterosexual Current gender identity: Male Vitals/I&O/Wt Last Vital Signs Temp 97.6 F 03/25/24 11:26 Pulse 97 03/25/24 20:59 Resp 23 H 03/25/24 20:59 BP 164/99 03/25/24 20:59 Pulse Ox 95 03/25/24 20:59 O2 Del Method Room Air 03/25/24 22:23 03/25/24 03/25/24 03/26/24 14:59 22:59 06:59 Intake Total 1000 / 1000 Balance 1000 / 1000 Weight last 48 hrs Weight 96.842 kg Weight 102.965 kg Physical Exam 2 Narrative: General: Awake alert oriented x 3 HEENT: PERRLA, pupils bilaterally equal and reactive, pallors not present Neuro: Please refer to neurology note for detailed neuroexam. Partial gaze palsy, unable to look to the right. Unable to test for ataxia as patient preferring to lay in bed. He is currently awake alert and oriented x 3. Follows all commands. Data 03/25/24 23:43 03/25/24 23:43 Other Labs: Radiology Impressions Chest X-Ray 03/25/24 12:07 IMPRESSION: No lobar consolidation is appreciated.No interval acute cardiopulmonary changes are appreciated. Head CT 03/25/24 12:07 IMPRESSION: 1. No evidence of intracranial hemorrhage or mass effect. 2. No acute intracranial findings. Head/Neck CTA 03/25/24 17:13 IMPRESSION: 1. No large vessel occlusion in the anterior intracranial arteries. 2. Acute occlusion of the right vertebral artery at the craniocervical junction suspicious for dissection. The right PICA is occluded. Short segment of moderate stenosis in the left V4 segment with questionable noncalcified filling defect at the origin of PICA with no occlusion of the left PICA. 3. Ill-defined hypodensity suspected in the central and right aspect of the dimitris and in the inferior paramedian aspect of the right cerebellar hemisphere. In the setting of right vertebral occlusion these findings are concerning for acute infarction involving the brainstem and the cerebellum. ASSESSMENT: ASPECTS ([place] Stroke Program Early CT Score) is 10. THIS REPORT CONTAINS FINDINGS THAT MAY BE CRITICAL TO PATIENT CARE. The findings were verbally communicated via telephone conference with DELL NORRIS: 1. No carotid stenosis. No vertebral occlusion or stenosis. 2. Right vestibulum of the oral cavity is significantly dilated with air bulging the right cheek for correlation with physical exam. REFERENCES: NASCET CRITERIA. The degree of stenosis in the cervical segment of the internal carotid artery is based on NASCET criteria. Normal is no stenosis. Mild is less than 50% stenosis. Moderate is 50-69% stenosis. Severe is 70% to 99% stenosis. Total occlusion is no detectable patent lumen. Laboratory Results WBC 13.19 10^3/uL (3.29-11.43) H 03/25/24 23:43 RBC 6.36 10^6/uL (3.85-5.65) H 03/25/24 23:43 Hgb 18.50 g/dL (11.27-16.99) H 03/25/24 23:43 Hct 53.5 % (37-53) H 03/25/24 23:43 MCV 84.1 fl (82-101) 03/25/24 23:43 MCH 29.1 pg (27-33) 03/25/24 23:43 MCHC 34.6 g/dL (30-55) 03/25/24 23:43 RDW 13.6 % (12.1-15.1) 03/25/24 23:43 Plt Count 241 10^3/cmm (157-399) 03/25/24 23:43 MPV 9.6 fL (7.4-10.4) 03/25/24 23:43 Neut % (Auto) 84.1 % 03/25/24 23:43 Lymph % (Auto) 11.8 % 03/25/24 23:43 [place] % (Auto) 3.3 % 03/25/24 23:43 Eos % (Auto) 0.0 % 03/25/24 23:43 Baso % (Auto) 0.3 % 03/25/24 23:43 Neut # (Auto) 11.10 10^3/uL (1.8-7.7) H 03/25/24 23:43 Lymph # (Auto) 1.6 10^3/uL (0.8-4.8) 03/25/24 23:43 [place] # (Auto) 0.4 10^3/uL (0.2-0.9) 03/25/24 23:43 Eos # (Auto) 0.0 10^3/uL (0.0-0.8) 03/25/24 23:43 Baso # (Auto) 0.0 10^3/uL (0.0-0.1) 03/25/24 23:43 Nucleated RBC % (auto) 0 % 03/25/24 23:43 Nucleated RBCs # 0.0 /100WBC 03/25/24 23:43 Specimen Type Arterial 03/25/24 12:22 Sample Site Radial, right 03/25/24 12:22 ABG pH 7.38 (7.35-7.45) 03/25/24 12:22 ABG pCO2 39.6 mmHg (35-45) 03/25/24 12:22 ABG pO2 84.5 mmHg (80.0-100.0) 03/25/24 12:22 ABG PO2/FiO2 Ratio 0 03/25/24 12:22 ABG HCO3 23.6 mmol/L (22-26) 03/25/24 12:22 ABG Base Excess -1.3 mmol/L (-2.0-2.0) 03/25/24 12:22 Gerard Test N/a 03/25/24 12:22 Hematocrit 59.3 % (42-52) H 03/25/24 12:22 O2 Delivery Device Nc 03/25/24 12:22 O2 Liters/Min 3.0 % 03/25/24 12:22 FiO2 32.0 % 03/25/24 12:22 Yarn Cleaner ID [place] 03/25/24 12:22 Sodium 141 mmol/L (136-145) 03/25/24 23:43 Potassium 4.0 mmol/L (3.5-5.1) 03/25/24 23:43 Chloride 103 mmol/L (98-107) 03/25/24 23:43 Carbon Dioxide 24 mmol/L (22-29) 03/25/24 23:43 Anion Gap 18.0 (5-19) 03/25/24 23:43 BUN 16 mg/dL (6-20) 03/25/24 23:43 Creatinine 0.7 mg/dL (0.7-1.2) 03/25/24 23:43 GFR Calculation 125.5 mL/min (90-130) 03/25/24 23:43 Glucose 318 mg/dL (65-115) H 03/25/24 23:43 POC Glucose 382 mg/dL (70-110) H 03/25/24 17:48 Estimat Average Glucose 263 03/25/24 23:43 Hemoglobin A1c 10.8 % (4.0-6.0) H 03/25/24 23:43 Calculated Osmolality 305 mOsm/kg (285-295) H 03/25/24 23:43 Lactic Acid 3.3 mmol/L (0.5-2.2) H 03/25/24 11:42 Lactic Acid (Sepsis) 1.5 mmol/L (0.5-2.2) 03/25/24 14:54 Calcium 9.0 mg/dL (8.5-10.5) 03/25/24 23:43 Total Bilirubin 0.8 mg/dL (0.15-1.2) 03/25/24 23:43 AST 9 U/L (0-40) 03/25/24 23:43 ALT 19 U/L (0-41) 03/25/24 23:43 Alkaline Phosphatase 106 U/L (40-130) 03/25/24 23:43 Creatine Kinase 64 U/L (39-308) 03/25/24 11:42 Troponin T Baseline 7 ng/L (0-15) 03/25/24 11:42 Troponin T 120 Minute 6.73 ng/L (0-15) 03/25/24 13:09 Delta Troponin T -0.27 ABS# (0-10) L 03/25/24 13:09 C-Reactive Protein 4.5 mg/L (0.0-4.9) 03/25/24 11:42 NT-Pro-B Natriuret Pep < 36 pg/mL (0-125) 03/25/24 11:42 Total Protein 7.2 g/dL (6.6-8.7) 03/25/24 23:43 Albumin 4.3 g/dL (3.5-5.2) 03/25/24 23:43 Globulin 2.9 g/dL (1.3-4.6) 03/25/24 23:43 Triglycerides 290 mg/dL (0-150) H 03/25/24 23:43 Cholesterol 225 mg/dL (0-200) H 03/25/24 23:43 LDL Cholesterol, Calc 136 mg/dL (50-129) H 03/25/24 23:43 HDL Cholesterol 31 mg/dL (60-100) L 03/25/24 23:43 LDL/HDL Ratio 4.39 RATIO (0.00-3.22) H 03/25/24 23:43 Cholesterol/HDL Ratio 7.26 mg/dL (1.0-5.00) H 03/25/24 23:43 Lipase 26 U/L (13-60) 03/25/24 11:42 Urine Color Yellow (Yellow) 03/25/24 13:14 Urine Appearance Clear (CLEAR) 03/25/24 13:14 Urine pH 5 (5-7) 03/25/24 13:14 Ur Specific [place] 1.010 (1.005-1.030) 03/25/24 13:14 Urine Protein 3+ (Negative) H 03/25/24 13:14 Urine Glucose (UA) 4+ (Normal) H 03/25/24 13:14 Urine Ketones 1+ (Negative) H 03/25/24 13:14 Urine Blood Neg (Negative) 03/25/24 13:14 Urine Nitrate Negative (Negative) 03/25/24 13:14 Urine Bilirubin Neg (Negative) 03/25/24 13:14 Urine Urobilinogen Norm mg/dL (Negative) 03/25/24 13:14 Ur Leukocyte Esterase Negative (Negative) 03/25/24 13:14 Urine RBC Rare /hpf (0-2) 03/25/24 13:14 Urine WBC None /hpf (0-5) 03/25/24 13:14 Ur Squamous Epith Cells None /hpf (0-5) 03/25/24 13:14 Amorphous Sediment Not Reportable 03/25/24 13:14 Urine Bacteria None /hpf (NONE) 03/25/24 13:14 Urine Opiates Screen Negative ng/mL (Negative) 03/25/24 13:14 Ur Barbiturates Screen Negative ng/mL (Negative) 03/25/24 13:14 Ur Phencyclidine Scrn Negative ng/mL (Negative) 03/25/24 13:14 Ur Amphetamines Screen Negative ng/mL (Negative) 03/25/24 13:14 U Benzodiazepines Scrn Negative ng/mL (Negative) 03/25/24 13:14 Urine Cocaine Screen Negative ng/mL (Negative) 03/25/24 13:14 U Marijuana (THC) Screen Negative ng/mL (Negative) 03/25/24 13:14 Serum Ketones Negative (Negative) 03/25/24 19:02 A&P Assessment and plan (1) Uncontrolled diabetes mellitus: (2) Hypertension: (3) Right pontine stroke: (4) Occlusion of right vertebral artery: Plan Admit the patient to ICU for close neuro monitoring for brainstem stroke He is not a TNK candidate due to unclear duration of symptoms CTA head and neck with acute infarction involving the brainstem and the cerebellum. Acute occlusion of the right vertebral artery. Radiology report mentions suspicion for dissection, however discussed case with Dr. Vance, findings appear to be most consistent with acute occlusion of the right vertebral artery, low suspicion for dissection at this time. Telemetry monitoring in the ICU to assess for any underlying arrhythmias Echocardiogram ordered and pending Start aspirin 81 mg daily, Plavix 75 mg p.o. daily now. Atorvastatin 40 mg daily to be started now Holding home dose of antihypertensives to allow for permissive hypertension IV fluids 100 cc/h to maintain cerebral perfusion PT OT speech therapy assessment Check HbA1c and lipid panel prn zofran for symptomatic management of nausea and vomiting Uncontrolled diabetes mellitus: Patient has been out of his oral hypoglycemic agents, has not been taking as prescribed. Upon initial arrival noted to have hyperglycemia with blood sugar greater than 400, anion gap of 25, negative serum ketones. With hydration anion gap at this time has corrected to 18. Blood sugar continues to be elevated at 380. Check HbA1c Insulin sliding scale while in the hospital. N.p.o. pending speech therapy assessment. Attestations 2 Medical Necessity Statement*: Greater than 2 midnight stay is anticipated at this time Coding Level of Care Code Acute Code for Chg Fwd High MDM includes number and complexity of problems actively addressed during encounter, amount and/or complexity of data reviewed/ordered and described risk of complication, morbidity or mortality of management as documented Diagnoses Uncontrolled diabetes mellitus Essential hypertension I10 Right pontine stroke I63.50 Occlusion of right vertebral artery I65.01
[2024-03-25] MEDS: aspirin 81 mg EC Tablet PO (23:32)
[2024-03-25] MEDS: clopidogrel 75 mg Tablet PO (23:32)
[2024-03-25] MEDS: atorvastatin 40 mg Tablet PO (23:32)
[2024-03-25 23:51] LABS: Basophils % 0.3 %; Hematocrit 53.5 % (37-53); Lymphocytes # 1.6 10^3/uL (0.8-4.8); Lymphocytes % 11.8 %; Mean Corpuscular HGB Conc 34.6 g/dL (30-55); Mean Corpuscular Hemoglobin 29.1 pg (27-33); Mean Corpuscular Volume 84.1 fl (82-101); Mean Platelet Volume 9.6 fL (7.4-10.4); Monocytes # 0.4 10^3/uL (0.2-0.9); Monocytes % 3.3 %; Neutrophils % 84.1 %; Nucleated Red Blood Cells % 0 %; Platelet Count 241 10^3/cmm (157-399); Red Blood Count 6.36 10^6/uL (3.85-5.65); Red Cell Distribution Width 13.6 % (12.1-15.1); White Blood Count 13.19 10^3/uL (3.29-11.43)
[2024-03-26] VITALS (107 sets, daily range): BP systolic 140–200; BP diastolic 80–123; PULSE 61–104; RESP 14–29; TEMP 36.3–36.8; O2SAT 92–98
[2024-03-26 00:09] LABS: Alanine Aminotransferase 19 U/L (0-41); Albumin Level 4.3 g/dL (3.5-5.2); Alkaline Phosphatase 106 U/L (40-130); Aspartate Amino Transferase 9 U/L (0-40); Blood Urea Nitrogen 16 mg/dL (6-20); Carbon Dioxide 24 mmol/L (22-29); Chloride 103 mmol/L (98-107); Chol HDL Ratio 7.26 mg/dL (1.0-5.00); Cholesterol 225 mg/dL (0-200); Creatinine Clr Calc Pharmacy 173.6976; Globulin 2.9 g/dL (1.3-4.6); Glomerular Filtration Rate 125.5 mL/min (90-130); Glucose 318 mg/dL (65-115); HDL Cholesterol 31 mg/dL (60-100); LDL Cholesterol Calculated 136 mg/dL (50-129); LDL HDL Ratio 4.39 RATIO (0.00-3.22); Osmolality Calculated 305 mOsm/kg (285-295); Sodium 141 mmol/L (136-145); Total Bilirubin 0.8 mg/dL (0.15-1.2); Total Protein 7.2 g/dL (6.6-8.7); Triglycerides 290 mg/dL (0-150)
--- NOTE | 2024-03-26 00:31 | PC.NURSE ---
Verbal orders: Dr. Mueller visited patient at bedside and gave verbal orders for 4mg IVP zofran Q6H PRN and 8 unit HUMALOG ONCE.
[2024-03-26] MEDS: insulin lispro 100 unit/1 mL 8 UNIT SUBCUT (00:51)
[2024-03-26 01:00] LABS: Estmated Average Glucose 263; Hemoglobin A1C 10.8 % (4.0-6.0)
[2024-03-26] MEDS: ondansetron 2 mg/ML SDV 2 mL 4 MG IVP ×3 (01:18→20:14)
[2024-03-26] MEDS: sodium chloride 0.9% 1,000 ML 100 ML IV (07:34)
[2024-03-26 07:50] LABS: Glucose Point of Care 230 mg/dL (70-110)
[2024-03-26] MEDS: aspirin 81 mg EC Tablet PO (08:50)
[2024-03-26] MEDS: insulin lispro 100 unit/1 mL SUBCUT ×3 (08:50→20:15)
[2024-03-26] MEDS: clopidogrel 75 mg Tablet PO (08:50)
[2024-03-26] MEDS: clotrimazole 1% cream 30 gm 1 APPLIC TOPICAL (09:06)
--- NOTE | 2024-03-26 11:38 | P.PN_ITS ---
Subjective 2 Subjective: Detailed review of H&P, ER notes critical care progress note from Dr. Vance done CBC reviewed which showed hemoconcentrated hemoglobin with leukocytosis, BMP reviewed ABG reviewed, patient is showing signs of improvement of lactic acid, hemoglobin A1c is 10.8, glucose 318, no sign of acidosis or DKA Dyslipidemia noted Drug screen is negative Attempt was made to reach out to tertiary hospitals however no recommendation was made for any kind of intervention, patient is being monitored in the ICU, all questions were answered to the family I have requested nurse to give him pur?ed diet until we get official speech therapy patient is not showing any signs of dysphagia or dysarthria during my evaluation Patient is hypertensive it is way beyond permissive hypertension goal currently blood pressure is 185/106 mmHg I will give low-dose labetalol I will request echo with bubble study at protein C protein S, SAÚL profile along B12 methylmalonic acid I did review these findings with the family patient Acute occlusion of the right vertebral artery at the craniocervical junction suspicious for dissection. The right PICA is occluded. Short segment of moderate stenosis in the left V4 segment with questionable noncalcified filling defect at the origin of PICA with no occlusion of the left PICA. Ill-defined hypodensity suspected in the central and right aspect of the dimitris and in the inferior paramedian aspect of the right cerebellar hemisphere. In the setting of right vertebral occlusion these findings are concerning for acute infarction involving the brainstem and the cerebellum. Vitals/I&O/Wt Last Vital Signs Temp 97.4 F L 03/26/24 08:00 Pulse 99 03/26/24 08:45 Resp 25 H 03/26/24 08:45 BP 185/106 03/26/24 08:45 Pulse Ox 95 03/26/24 08:45 O2 Del Method Room Air 03/26/24 08:00 03/25/24 03/26/24 03/26/24 22:59 06:59 14:59 Intake Total 1000 / 3000 292.5 / 3292.5 707.5 / 707.5 Balance 1000 / 3000 292.5 / 3292.5 707.5 / 707.5 Weight last 48 hrs Weight 95.118 kg Weight 96.842 kg Weight 102.965 kg Physical Exam 2 Narrative: Patient is not able to detect anything in his right visual field Experiencing diplopia whenever he opens his left eye, associated with central nystagmus Pupils are reactive to light Is able to follow command Good strength of upper and lower extremities No dysarthria No slurring of speech No facial droop Looks dehydrated Hypertensive blood pressure 195/106 Afebrile Currently on room air S1, S2 No audible stridor or wheezing family at the bedside Data 03/25/24 23:43 03/25/24 23:43 A&P Assessment and plan (1) Non compliance w medication regimen: (2) Depression: Qualifiers: Depression Type: unspecified Qualified Code(s): F32.9 - Major depressive disorder, single episode, unspecified (3) Alcoholism in recovery: (4) Hypertension: (5) Hyperlipidemia associated with type 2 diabetes mellitus: (6) Diabetes mellitus type 2 in obese: (7) Uncontrolled diabetes mellitus: (8) Right pontine stroke: (9) Occlusion of right vertebral artery: (10) Insomnia disorder: Qualifiers: Insomnia type: psychophysiologic Qualified Code(s): F51.04 - Psychophysiologic insomnia Plan Acute thromboembolic stroke Involving right vertebral artery, right pontine stroke Poorly controlled diabetic with dyslipidemia Transfer center was approached they did not recommend any intervention Critical care progress note of neurology reviewed He was not a candidate for TNKase At this point we are monitoring him in ICU for any progression of symptoms considering pontine stroke, patient is able to eat and drink able to work with PT however when he was working with OT he started getting nauseous, he does have cerebellar stroke heels balance will be off he is suffering from central nystagmus as well Extremely dehydrated with hemoconcentrated CBC, continue IV fluid Permissive hypertension: We can use labetalol on as-needed basis if blood pressure above 180/110 mmHg, we may add low-dose lisinopril by tomorrow Will touch base with Dr. Vance Spoke with the family at the bedside Uncontrolled diabetes Hemoglobin A1c is above around 10, patient has indication to start insulin he has not tolerated Ozempic which caused pancreatitis Will start him on insulin with sliding scale the hospital no signs of DKA at this point Continue dual antiplatelet therapy along atorvastatin Will follow-up with PT OT ST recommendations He has significant dyslipidemia as well Repeat CT head without contrast by tomorrow I have requested protein C, protein S, B12, methylmalonic acid, SAÚL profile Disposition: Most likely home with home health Attestations 2 Medical Necessity Statement*: Continue medical management ICU Diagnoses Non compliance w medication regimen Z91.14 Depression, unspecified depression type F32.9 Depression Type: unspecified Alcoholism in recovery F10.21 Essential hypertension I10 Hyperlipidemia associated with type 2 diabetes mellitus E11.69; E78.5 Diabetes mellitus type 2 in obese E11.69; E66.9 Uncontrolled diabetes mellitus Right pontine stroke I63.50 Occlusion of right vertebral artery I65.01 Psychophysiological insomnia F51.04 Insomnia type: psychophysiologic
--- NOTE | 2024-03-26 11:41 | USCV_ITS ---
Jarred Dangelo Age: 38 Gender: M : 1985 Exam Date: 03/26/2024 14:42 Ordering Phys: Gregory Kwong MD Technologist: CT Exam Location: [facility] – [place] Indication: cva BP: 145 / 80 HR: Rhythm: Sinus Technical Quality: Adequate MEASUREMENTS (Male / Female) Normal Values 2D ECHO LVOT Diameter 2.3 cm LV Ejection Fraction MOD 2C 69.3 % LV Ejection Fraction 2C AL 70.9 % LA Diameter 4.3 cm RA Systolic Volume 4C AL 56.5 ml RA Systolic Volume 4C MOD 53.6 ml LA Sys Volume AL 79.9 cm cubed LA Sys Volume Index AL 35.8 cm cubed/m squared Aorta at Sinotubular Diameter 2.3 cm M-MODE LA Ao Ratio MM 1.4 AV Cusp Separation MM 2.5 cm FINDINGS Left Ventricle Left ventricular ejection fraction is estimated at 69% %. No regional wall motion abnormalities. Right Ventricle Appears to be normal size Right Atrium Normal right atrial size. Echo contrast images reveal no evidence of any ajpaw-nl-vynp shunt Left Atrium Mildly increased left atrial size. Mitral Valve No gross morphologic abnormalities noted Aortic Valve No gross morphologic abnormalities noted Tricuspid Valve No gross abnormalities noted Pulmonic Valve No gross abnormalities noted Pericardium No pericardial effusion. Aorta Normal aortic annulus size. IVC Normal inferior vena cava. CONCLUSIONS Left ventricular size and ejection fraction, estimated at 69% . No regional wall motion abnormalities. Mildly increased left atrial size. Saline contrast injection revealed no evidence of any right-to- left shunt. Dr Dk Clement MD [facility] (Electronically Signed) Final Date: 26 March 2024 20:15 S
--- NOTE | 2024-03-26 11:54 | MRR_ITS ---
PROCEDURE INFORMATION: Exam: MRA Neck Without Contrast Exam date and time: 03/26/2024 3:51 PM Age: 38 years old Clinical indication: Cognitive deficit; Altered mental status; Additional info: CVA TECHNIQUE: Imaging protocol: Magnetic resonance angiography of the neck without contrast. Hphr-gl-apycjl (TOF) technique was utilized for this exam. COMPARISON: CT angio headneck* [id number] 03/25/2024 5:36 PM FINDINGS: Right common carotid artery: No stenosis. No dissection or occlusion. Right internal carotid artery: No stenosis of the extracranial segment. No dissection or occlusion. Right external carotid artery: No stenosis. No dissection or occlusion of the origin. Right vertebral artery: Occlusion of the right vertebral artery at the craniocervical junction as seen on yesterday's CTA. Left common carotid artery: No stenosis. No dissection or occlusion. Left internal carotid artery: No stenosis of the extracranial segment. No dissection or occlusion. Left external carotid artery: No stenosis. No dissection or occlusion of the origin. Left vertebral artery: No stenosis. No dissection or occlusion. MR/MR angio neck wo con [id number] IMPRESSION: Occlusion of the right vertebral artery at the craniocervical junction as seen on yesterday's CTA. REFERENCES: NASCET CRITERIA. The degree of stenosis in the cervical segment of the internal carotid artery is based on NASCET criteria. Normal is no stenosis. Mild is less than 50% stenosis. Moderate is 50-69% stenosis. Severe is 70% to 99% stenosis. Total occlusion is no detectable patent lumen.
--- NOTE | 2024-03-26 11:54 | MRR_ITS ---
PROCEDURE INFORMATION: Exam: MRA Head Without Contrast; Arteriography Exam date and time: 03/26/2024 3:42 PM Age: 38 years old Clinical indication: Cognitive deficit; Attention and concentration deficit; Additional info: CVA, TECHNIQUE: Imaging protocol: Magnetic resonance angiography head without contrast. Akrz-uz-lrupys (TOF) technique was utilized for this exam. Exam focused on the arteries. COMPARISON: CT angio headneck* [id number] 03/25/2024 5:36 PM FINDINGS: ANTERIOR CIRCULATION: Right internal carotid artery: Intracranial segment is patent with no significant stenosis. No aneurysm. Right middle cerebral artery: No occlusion or significant stenosis. No aneurysm. Right anterior cerebral artery: No occlusion or significant stenosis. No aneurysm. Left internal carotid artery: Intracranial segment is patent with no significant stenosis. No aneurysm. Left middle cerebral artery: No occlusion or significant stenosis. No aneurysm. Left anterior cerebral artery: No occlusion or significant stenosis. No aneurysm. POSTERIOR CIRCULATION: Right vertebral artery: Redemonstration right vertebral artery occlusion (see CTA 03/25/2024). Left vertebral artery: No occlusion or significant stenosis. No aneurysm. Basilar artery: No occlusion or significant stenosis. No aneurysm. Right posterior cerebral artery: No occlusion or significant stenosis. No aneurysm. Left posterior cerebral artery: No occlusion or significant stenosis. No aneurysm. MR/MR angio head wo con [id number] IMPRESSION: Redemonstration right vertebral artery occlusion (see CTA 03/25/2024).
--- NOTE | 2024-03-26 11:54 | MRR_ITS ---
PROCEDURE INFORMATION: Exam: MR Head Without Contrast Exam date and time: 03/26/2024 3:25 PM Age: 38 years old Clinical indication: Altered mental status/memory loss; Confusion or disorientation; Additional info: CVA TECHNIQUE: Imaging protocol: Magnetic resonance imaging of the head without contrast. COMPARISON: CT angio headneck* [id number] 03/25/2024 5:36 PM FINDINGS: Brain: Restricted diffusion and matching FLAIR hyperintensity right PICA territory (inferior right cerebellar hemisphere including tonsil and inferior vermis, small portion right pontine tegmentum). Cerebral ventricles: Normal. No ventriculomegaly. Bones: Unremarkable. Paranasal sinuses: Normal as visualized. No acute sinusitis. Mastoid air cells: Normal as visualized. No mastoid effusion. Orbital cavities: Unremarkable. Soft tissues: Unremarkable. Other findings: No hemorrhage. MR/MR head wo con* [id number] IMPRESSION: Restricted diffusion and matching FLAIR hyperintensity right PICA territory (inferior right cerebellar hemisphere including tonsil and inferior vermis, small portion right pontine tegmentum). Findings consistent acute infarct.
[2024-03-26 13:02] LABS: Glucose Point of Care 283 mg/dL (70-110)
[2024-03-26 13:05] LABS: Vitamin B12 681 pg/mL (232-1245)
[2024-03-26] MEDS: atorvastatin 40 mg Tablet 80 MG PO (20:14)
[2024-03-26] MEDS: sodium chloride 0.9% 1,000 ML 75 ML IV (20:14)
[2024-03-26 20:32] LABS: Glucose Point of Care 252 mg/dL (70-110)
[2024-03-26] MEDS: insulin glargine 100 units/1 mL 10 UNIT SUBCUT (21:44)
[2024-03-26 21:56] LABS: Glucose Point of Care 229 mg/dL (70-110)
--- NOTE | 2024-03-26 23:19 | USCV_ITS ---
Jarred Dangelo Age: 38 Gender: M : 1985 Exam Date: 03/26/2024 01:16 Ordering Phys: Meryl Mueller MD Technologist: HOLLY Exam Location: [facility] – [place] Indication: stroke. BP: 164 / 99 HR: 66 Rhythm: Sinus Technical Quality: Adequate MEASUREMENTS (Male / Female) Normal Values 2D ECHO LV Diastolic Diameter PLAX 4.2 cm 4.2 - 5.9 / 3.9 - 5.3 cm IVS Diastolic Thickness 1.9 cm 0.6 - 1.0 / 0.6 - 0.9 cm IVS Systolic Thickness 2.3 cm LVPW Diastolic Thickness 1.3 cm 0.6 - 1.0 / 0.6 - 0.9 cm LVPW Systolic Thickness 2.0 cm LVOT Diameter 1.9 cm LV Ejection Fraction 2D Teich 59.4 % LV Ejection Fraction MOD 2C 77.6 % LV Ejection Fraction 2C AL 78.3 % LA Diameter 4.6 cm LA Sys Volume AL 45.3 cm cubed LA Sys Volume Index AL 19.2 cm cubed/m squared Aorta at Sinotubular Diameter 2.9 cm IVC Diameter 1.4 cm M-MODE LA Ao Ratio MM 1.4 AV Cusp Separation MM 1.8 cm DOPPLER AV Peak Velocity 161.0 cm/s LVOT Peak Velocity 130.0 cm/s AV Area Cont Eq vti 2.8 cm squared AV Area Cont Eq pk 2.4 cm squared MV Peak Velocity 129.0 cm/s MV Area PHT 3.2 cm squared Mitral E to A Ratio 1.1 TV Peak E Velocity 94.0 cm/s PV Peak Velocity 121.0 cm/s FINDINGS Left Ventricle Normal left ventricular size and systolic function, EF 77%. No regional wall motion abnormalities. Right Ventricle The right ventricle is normal in size and function. Right Atrium The right atrium is normal in size. Left Atrium The left atrium is normal in size. Mitral Valve No gross abnormalities noted Aortic Valve No gross abnormalities noted Tricuspid Valve No gross abnormalities noted Pulmonic Valve No gross abnormalities noted Pericardium Normal pericardium without effusion. Aorta Normal ascending aorta dimension. IVC The inferior vena cava appears normal. CONCLUSIONS Normal left ventricular size and systolic function, EF 77%. No regional wall motion abnormalities. Normal cardiac chamber sizes. No significant valvular lesions. There is no pericardial effusion. There are no intracardiac masses. No similar previous studies are available for comparison Dr Dk Clement MD [facility] (Electronically Signed) Final Date: 26 March 2024 13:52 S
--- NOTE | 2024-03-26 23:50 | ECG_ITS ---
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 Measurements Intervals [place] Rate: 78 P: -66 NM: 106 QRS: 49 QRSD: 93 T: 87 QT: 397 QTc: 455 Interpretive Statements ECTOPIC ATRIAL RHYTHM ST DEVIATION AND MODERATE T-WAVE ABNORMALITY, CONSIDER ANTERIOR ISCHEMIA [-0.1+ mV T-WAVE IN V3/V4] Compared to ECG 03/25/2024 17:50:14 Possible ischemia now present Sinus rhythm no longer present T-wave abnormality still present Electronically Signed On 03-27-2024 21:34:19 CDT by Conrad Ervin M.D. [id number]
[2024-03-27] VITALS (87 sets, daily range): BP systolic 136–196; BP diastolic 87–122; PULSE 66–117; RESP 16–34; TEMP 36.3–36.9; O2SAT 91–96; BMI 27.9
--- NOTE | 2024-03-27 00:15 | PC.NURSE ---
Arrhythmia Patient's HR decreased into the 40s while in an abnormal rhythm for a short amount of time. Additionally, patient's blood pressure 185/108. EKG obtained. Patient denied chest pain, shortness of breath. Dr. Mueller notified; order received to obtain magnesium, phosphorous levels with morning labs and to allow permissive hypertension, treat blood pressures only greater than 220 systolic.
[2024-03-27] MEDS: ondansetron 2 mg/ML SDV 2 mL 4 MG IVP ×4 (02:37→19:36)
[2024-03-27 04:19] LABS: Basophils % 0.2 %; Eosinophils # 0.1 10^3/uL (0.0-0.8); Eosinophils % 0.7 %; Hematocrit 52.6 % (37-53); Lymphocytes # 2.4 10^3/uL (0.8-4.8); Lymphocytes % 17.3 %; Mean Corpuscular HGB Conc 33.5 g/dL (30-55); Mean Corpuscular Hemoglobin 28.5 pg (27-33); Mean Corpuscular Volume 85.1 fl (82-101); Mean Platelet Volume 9.9 fL (7.4-10.4); Monocytes # 0.8 10^3/uL (0.2-0.9); Neutrophils % 75.4 %; Nucleated Red Blood Cells % 0 %; Platelet Count 242 10^3/cmm (157-399); Red Blood Count 6.18 10^6/uL (3.85-5.65); Red Cell Distribution Width 13.7 % (12.1-15.1); White Blood Count 13.67 10^3/uL (3.29-11.43)
[2024-03-27 04:43] LABS: Blood Urea Nitrogen 17 mg/dL (6-20); Calcium 8.8 mg/dL (8.5-10.5); Carbon Dioxide 29 mmol/L (22-29); Chloride 100 mmol/L (98-107); Creatinine Clr Calc Pharmacy 201.0349; Glucose 236 mg/dL (65-115); Magnesium 1.9 mg/dL (1.7-2.3); Osmolality Calculated 303 mOsm/kg (285-295); Phosphorus 3.3 mg/dL (2.5-4.5); Sodium 142 mmol/L (136-145)
--- NOTE | 2024-03-27 06:53 | PC.NURSE ---
Nausea On the way back from CT, patient began vomiting over the side of his bed. Once back in patient's room, patient still complaining of increasing nausea. Dr. Mueller contacted; order received for 4 mg zofran IVP once.
--- NOTE | 2024-03-27 07:00 | CTR_ITS ---
PROCEDURE INFORMATION: Exam: CT Head Without Contrast Exam date and time: 03/27/2024 6:18 AM Age: 38 years old Clinical indication: Other: CVA TECHNIQUE: Imaging protocol: Computed tomography of the head without contrast. Radiation optimization: All CT scans at this facility use at least one of these dose optimization techniques: automated exposure control; mA and/or kV adjustment per patient size (includes targeted exams where dose is matched to clinical indication); or iterative reconstruction. COMPARISON: MR angio head wo con [id number] 03/26/2024 3:42 PM RADIATION DOSE METRICS: Total DLP (mGy-cm): 1053.01 FINDINGS: Brain: Again seen is acute infarct in right cerebellum involving PICA territory and posterior aspect of dimitris. Cerebral ventricles: There is some mass level of foramen of [place], without hydrocephalus. Paranasal sinuses: Mild ethmoid air cells mucosal thickening. No fluid levels. Mastoid air cells: No significant mastoid effusion. Bones: Unremarkable. No acute fracture. Soft tissues: Unremarkable as visualized. Other findings: No acute hemorrhage. CT/CT head wo con* [id number] IMPRESSION: No evidence of interval complication of right posterior fossa infarct.
[2024-03-27] MEDS: insulin lispro 100 unit/1 mL SUBCUT ×3 (09:26→19:32)
[2024-03-27] MEDS: thiamine 100 mg Tablet PO (09:27)
[2024-03-27] MEDS: aspirin 81 mg EC Tablet PO (09:27)
[2024-03-27] MEDS: folic acid 1 mg Tablet PO (09:27)
[2024-03-27] MEDS: clopidogrel 75 mg Tablet PO (09:27)
[2024-03-27] MEDS: sodium chloride 0.9% 1,000 ML 75 ML IV ×2 (09:28→20:47)
--- NOTE | 2024-03-27 12:01 | USR_ITS ---
PROCEDURE INFORMATION: Exam: US Duplex Bilateral Extracranial Arteries; Complete; Carotid Arteries Exam date and time: 03/27/2024 3:45 PM Age: 38 years old Clinical indication: Other: Stroke TECHNIQUE: Imaging protocol: Real-time duplex ultrasound scan of the bilateral extracranial arteries combining mcnamara scale, color Doppler and spectral waveform analysis with image documentation. Complete exam. Exam focused on the carotid arteries. COMPARISON: CT angio headneck* [id number] 03/25/2024 5:36 PM FINDINGS: Right common carotid artery: Unremarkable. No occlusion or stenosis. Waveforms are normal. Right internal carotid artery: Unremarkable. No occlusion or stenosis. Waveforms are normal. Right ICA/CCA ratio: Within normal limits. Right external carotid artery: No stenosis in the origin. Right vertebral artery: Flow in the normal direction. Left common carotid artery: Unremarkable. No occlusion or stenosis. Waveforms are normal. Left internal carotid artery: Unremarkable. No occlusion or stenosis. Waveforms are normal. Left ICA/CCA ratio: Within normal limits. Left external carotid artery: No stenosis in the origin. Left vertebral artery: Flow in the normal direction. US/CV carotid duplex BI* [id number] IMPRESSION: No carotid arterial stenosis. REFERENCES: SRU CRITERIA. The degree of internal carotid artery stenosis is based on criteria defined by the Society of Radiologists in Ultrasound (SRU). Normal is no stenosis. Mild is less than 50% stenosis. Moderate is 50-69% stenosis. Severe is greater than 69% stenosis to near occlusion. Near occlusion is a markedly narrowed lumen. Total occlusion is no detectable patent lumen.
[2024-03-27] MEDS: enoxaparin 40 mg/0.4 mL Syringe SUBCUT (12:55)
[2024-03-27] MEDS: lisinopril 10 mg Tablet PO (12:56)
[2024-03-27] MEDS: lidocaine 2% viscous 15 ML, aluminum-mag hydrox-simethicon 30 ML, sucralfate oral liq 1 GM PO (12:56)
[2024-03-27] MEDS: potassium chloride oral liq 20 mEq/15 mL UDC 40 MEQ PO (12:56)
[2024-03-27 13:08] LABS: Glucose Point of Care 166 mg/dL (70-110)
--- NOTE | 2024-03-27 15:55 | PC.NURSE ---
Pt went into Vtach without loss of consciousness or pulse. Vagal maneuver used and patient returned to . Dr. nunez and gave order for amio gtt with bolus. Taken to metallurgical laboratory assistant shortly after.
[2024-03-27 17:09] LABS: Glucose Point of Care 223 mg/dL (70-110)
--- NOTE | 2024-03-27 17:32 | P.PN_ITS ---
Subjective 2 Subjective: Patient reports ongoing neurological symptoms. Endorses unsteady gait, nausea with episode of emesis this morning, dizziness, and double vision. He worked with therapy this morning. He states overall he feels like he is slightly better. Multiple family members are bedside and supportive. Medications: Reviewed: Yes Vitals/I&O/Wt Last Vital Signs Temp 98.3 F 03/27/24 09:15 Pulse 95 03/27/24 16:00 Resp 27 H 03/27/24 16:00 BP 144/91 03/27/24 16:00 Pulse Ox 94 03/27/24 07:30 O2 Del Method Room Air 03/27/24 05:30 03/27/24 03/27/24 03/27/24 06:59 14:59 22:59 Intake Total 1120 / 4887.500 1352.5 / 1352.5 Output Total 500 / 3275 Balance 620 / 9692.749 8992.5 / 1352.5 Weight last 48 hrs Weight 96.026 kg Weight 95.118 kg Weight 96.842 kg Physical Exam 2 Narrative: General: Patient is initially sleeping but awakens. Ill-appearing. Head: Normocephalic. Atraumatic. EOM intact. Neck: No JVD. Cardiovascular: RRR. No gallops. No murmurs. Hypertensive. Lungs: Breath sounds are slightly diminished, no use of accessory muscles, no crackles or wheezes. Skin: No jaundice. No rashes. Abdomen: Normal bowel sounds, abdomen soft and nontender. Genito Urinary: Genital exam not performed since complaints not related. Rectal: Rectal exam not performed since no symptoms indicated blood loss. Extremities: No cyanosis or clubbing. Musculoskeletal: No swollen or erythematous joints. Neurological: Moves all 4 extremities. No myoclonus. Data 03/27/24 03:21 03/27/24 03:21 A&P Assessment and plan (1) Non compliance w medication regimen: (2) Depression: Qualifiers: Depression Type: unspecified Qualified Code(s): F32.9 - Major depressive disorder, single episode, unspecified (3) Alcoholism in recovery: (4) Hypertension: (5) Hyperlipidemia associated with type 2 diabetes mellitus: (6) Diabetes mellitus type 2 in obese: (7) Uncontrolled diabetes mellitus: (8) Right pontine stroke: (9) Occlusion of right vertebral artery: (10) Insomnia disorder: Qualifiers: Insomnia type: psychophysiologic Qualified Code(s): F51.04 - Psychophysiologic insomnia Plan Acute thromboembolic stroke -Involving right vertebral artery, right pontine stroke -Multiple risk factors including tobacco use, dyslipidemia, uncontrolled hypertension, uncontrolled diabetes -Prior providers contacted tertiary centers to evaluate for any possible intervention which 9 was recommended -Neurology, Dr. Vance, has evaluated, appreciate recommendations -Imaging reviewed -Continue PT/OT -Continue speech therapy, advance diet per their recommendations -Will need to determine the most appropriate postacute treatment for patient -Antiemetics as needed posterior stroke symptoms -Continue high intensity statin -Continue DAPT -Follow-up pending labs Dehydration -He is received IV fluids -Monitor oral intake Hypertension -Uncontrolled -He is out of the window of permissive hypertension -Increasing lisinopril with extra dose today -Okay to continue labetalol Uncontrolled type 2 diabetes mellitus -A1c above 10 -He has a history of pancreatitis while on his Ozempic -Continue insulin therapy -Nutrition consult when available Hypokalemia -Replace potassium DVT prophylaxis: Lovenox CODE STATUS: Full code Attestations 2 Medical Necessity Statement*: Patient requires ongoing hospitalization for serial neurological exams, physical, occupational, and speech therapies, titration of blood pressure medications, and supportive care. Coding Level of Care Code Acute Code for Chg Fwd Diagnoses Non compliance w medication regimen Z91.14 Depression, unspecified depression type F32.9 Depression Type: unspecified Alcoholism in recovery F10.21 Essential hypertension I10 Hyperlipidemia associated with type 2 diabetes mellitus E11.69; E78.5 Diabetes mellitus type 2 in obese E11.69; E66.9 Uncontrolled diabetes mellitus Right pontine stroke I63.50 Occlusion of right vertebral artery I65.01 Psychophysiological insomnia F51.04 Insomnia type: psychophysiologic
[2024-03-27 19:13] LABS: Glucose Point of Care 195 mg/dL (70-110)
[2024-03-27] MEDS: pantoprazole 40 mg SDV IVP (20:46)
[2024-03-27] MEDS: atorvastatin 40 mg Tablet 80 MG PO (20:47)
[2024-03-27] MEDS: calcium carbonate 500 mg Chew Tablet PO (20:47)
[2024-03-27] MEDS: insulin glargine 100 units/1 mL 16 UNIT SUBCUT (20:55)
[2024-03-27 21:01] LABS: Glucose Point of Care 229 mg/dL (70-110)
[2024-03-28] VITALS (26 sets, daily range): BP systolic 142–186; BP diastolic 88–116; PULSE 73–108; RESP 12–29; TEMP 36.8–37.1
[2024-03-28] MEDS: ondansetron 2 mg/ML SDV 2 mL 4 MG IVP ×2 (02:41→08:42)
[2024-03-28] MEDS: calcium carbonate 500 mg Chew Tablet PO (02:43)
[2024-03-28 04:45] LABS: Basophils % 0.4 %; Eosinophils # 0.1 10^3/uL (0.0-0.8); Eosinophils % 0.8 %; Lymphocytes # 2.6 10^3/uL (0.8-4.8); Lymphocytes % 22.8 %; Mean Corpuscular HGB Conc 34.2 g/dL (30-55); Mean Corpuscular Hemoglobin 29.2 pg (27-33); Mean Corpuscular Volume 85.3 fl (82-101); Mean Platelet Volume 9.5 fL (7.4-10.4); Monocytes # 0.8 10^3/uL (0.2-0.9); Monocytes % 7.4 %; Neutrophils % 68.2 %; Nucleated Red Blood Cells % 0 %; Platelet Count 211 10^3/cmm (157-399); Red Blood Count 5.86 10^6/uL (3.85-5.65); Red Cell Distribution Width 13.2 % (12.1-15.1); White Blood Count 11.42 10^3/uL (3.29-11.43)
[2024-03-28 05:07] LABS: Albumin Level 3.4 g/dL (3.5-5.2); Anion Gap 14.6 (5-19); Blood Urea Nitrogen 17 mg/dL (6-20); Calcium 8.1 mg/dL (8.5-10.5); Carbon Dioxide 26 mmol/L (22-29); Chloride 100 mmol/L (98-107); Glucose 210 mg/dL (65-115); Magnesium 1.9 mg/dL (1.7-2.3); Phosphorus 3.2 mg/dL (2.5-4.5); Potassium 3.6 mmol/L (3.5-5.1); Sodium 137 mmol/L (136-145)
[2024-03-28 08:30] LABS: Glucose Point of Care 201 mg/dL (70-110)
[2024-03-28] MEDS: pantoprazole 40 mg SDV IVP (08:32)
[2024-03-28] MEDS: lisinopril 10 mg Tablet 20 MG PO (08:32)
[2024-03-28] MEDS: clopidogrel 75 mg Tablet PO (08:32)
[2024-03-28] MEDS: thiamine 100 mg Tablet PO (08:32)
[2024-03-28] MEDS: folic acid 1 mg Tablet PO (08:32)
[2024-03-28] MEDS: aspirin 81 mg EC Tablet PO (08:33)
[2024-03-28] MEDS: insulin lispro 100 unit/1 mL SUBCUT ×3 (08:34→19:32)
[2024-03-28 12:42] LABS: Glucose Point of Care 270 mg/dL (70-110)
[2024-03-28] MEDS: enoxaparin 40 mg/0.4 mL Syringe SUBCUT (12:53)
--- NOTE | 2024-03-28 17:07 | P.PN_ITS ---
Subjective 2 Subjective: Patient reports his neurological symptoms are slowly improving. His diet is been upgraded to level 6 as of today. Still having significant dizziness and double vision. The eye patch helped some. He serially has not ambulated much. Mother is bedside and supportive. Medications: Reviewed: Yes Vitals/I&O/Wt Last Vital Signs Temp 98.2 F 03/28/24 08:00 Pulse 91 03/28/24 16:00 Resp 18 03/28/24 16:00 BP 186/112 03/28/24 16:00 Pulse Ox 96 03/27/24 23:00 O2 Del Method Room Air 03/27/24 05:30 03/28/24 03/28/24 03/28/24 06:59 14:59 22:59 Intake Total 120 / 2641.25 1440 / 1440 Balance 120 / 2641.25 1440 / 1440 Weight last 48 hrs Weight 106.005 kg Weight 96.026 kg Physical Exam 2 Narrative: General: Patient is awake. Appears ill. Head: Normocephalic. Atraumatic. EOM intact. Neck: No JVD. Cardiovascular: RRR. No gallops. No murmurs. Hypertensive. Lungs: Breath sounds are slightly diminished, no use of accessory muscles, no crackles or wheezes. Skin: No jaundice. No rashes. Abdomen: Normal bowel sounds, abdomen soft and nontender. Extremities: No cyanosis or clubbing. Musculoskeletal: No swollen or erythematous joints. Neurological: Moves all 4 extremities. No myoclonus. Data 03/28/24 04:05 03/28/24 04:05 A&P Assessment and plan (1) Non compliance w medication regimen: (2) Depression: Qualifiers: Depression Type: unspecified Qualified Code(s): F32.9 - Major depressive disorder, single episode, unspecified (3) Alcoholism in recovery: (4) Hypertension: (5) Hyperlipidemia associated with type 2 diabetes mellitus: (6) Diabetes mellitus type 2 in obese: (7) Uncontrolled diabetes mellitus: (8) Right pontine stroke: (9) Occlusion of right vertebral artery: (10) Insomnia disorder: Qualifiers: Insomnia type: psychophysiologic Qualified Code(s): F51.04 - Psychophysiologic insomnia Plan Acute thromboembolic stroke -Involving right vertebral artery, right pontine stroke -Multiple risk factors including tobacco use, dyslipidemia, uncontrolled hypertension, uncontrolled diabetes -Prior providers contacted tertiary centers to evaluate for any possible intervention which none was recommended -Neurology, Dr. Vance, has evaluated, appreciate recommendations -Antiemetics as needed posterior stroke symptoms -Continue high intensity statin -Continue DAPT -Follow-up pending labs -Continue PT/OT/ST -Patient would likely benefit from inpatient rehab after discharge Dehydration -Oral intake is improving, discontinue maintenance fluids Hypertension -Uncontrolled -Increase lisinopril to max dose -He will likely need a second agent -Okay to continue labetalol Uncontrolled type 2 diabetes mellitus -A1c 10.8, advised continued insulin therapy after discharge -History of pancreatitis while on his Ozempic -Increase Lantus dose -Consider mealtime insulin -Sliding-scale correction -Nutrition consult when available Tobacco use disorder -Patient counseled on smoking cessation Hypokalemia -Potassium level is improved DVT prophylaxis: Lovenox CODE STATUS: Full code Attestations 2 Medical Necessity Statement*: Patient requires ongoing hospitalization for continued PT/ST/OT, blood pressure medication titration, diabetes medication titration, and supportive care. Coding Level of Care Code Acute Code for Chg Fwd Diagnoses Non compliance w medication regimen Z91.14 Depression, unspecified depression type F32.9 Depression Type: unspecified Alcoholism in recovery F10.21 Essential hypertension I10 Hyperlipidemia associated with type 2 diabetes mellitus E11.69; E78.5 Diabetes mellitus type 2 in obese E11.69; E66.9 Uncontrolled diabetes mellitus Right pontine stroke I63.50 Occlusion of right vertebral artery I65.01 Psychophysiological insomnia F51.04 Insomnia type: psychophysiologic
[2024-03-28 19:29] LABS: Glucose Point of Care 313 mg/dL (70-110)
[2024-03-28] MEDS: amlodipine 5 mg Tablet 2.5 MG PO (19:33)
[2024-03-28] MEDS: lactulose oral liq 20 gm/30 mL UDC PO (19:52)
[2024-03-28] MEDS: atorvastatin 40 mg Tablet 80 MG PO (20:32)
[2024-03-28] MEDS: insulin glargine 100 units/1 mL 20 UNIT SUBCUT (21:18)
[2024-03-28 21:35] LABS: Glucose Point of Care 212 mg/dL (70-110)
[2024-03-29] VITALS (28 sets, daily range): BP systolic 141–178; BP diastolic 87–117; PULSE 73–94; RESP 15–27; TEMP 36.2–36.9; O2SAT 94–96
[2024-03-29] MEDS: acetaminophen 325 mg Tablet 650 MG PO (00:55)
--- NOTE | 2024-03-29 04:34 | CTR_ITS ---
PROCEDURE INFORMATION: Exam: CT Head Without Contrast Exam date and time: 03/29/2024 4:45 AM Age: 38 years old Clinical indication: Pain; Headache; Patient HX: C/O severe LÓPEZ. Currently hospitalized for RT cerebellar stroke. ; Additional info: Headache post stroke TECHNIQUE: Imaging protocol: Computed tomography of the head without contrast. Radiation optimization: All CT scans at this facility use at least one of these dose optimization techniques: automated exposure control; mA and/or kV adjustment per patient size (includes targeted exams where dose is matched to clinical indication); or iterative reconstruction. COMPARISON: CT head wo con* [id number] 03/27/2024 6:18 AM RADIATION DOSE METRICS: Total DLP (mGy-cm): 1088.98 FINDINGS: Brain: Areas of encephalomalacia are present within the right cerebellum. No hemorrhagic transformation. No abnormal blood. No hemorrhage. Unremarkable white matter. No mass effect. Cerebral ventricles: No ventriculomegaly. Paranasal sinuses: Visualized sinuses are unremarkable. No fluid levels. Mastoid air cells: Visualized mastoid air cells are well aerated. Bones: Unremarkable. No acute fracture. Soft tissues: Unremarkable. CT/CT head wo con* [id number] IMPRESSION: No acute intracranial abnormality.
[2024-03-29] MEDS: ondansetron 2 mg/ML SDV 2 mL 4 MG IVP ×2 (04:55→18:02)
--- NOTE | 2024-03-29 04:58 | PC.NURSE ---
Patient reports having a headache, tylenol given PO for the pain. Patients falls asleep and is resting. Later patient reports increased head pain all over and dizziness. Notified Dr Mueller of new headache and increased dizziness with no neurological changes noted. CT or head w/o contrast ordered and done.
[2024-03-29 07:52] LABS: Glucose Point of Care 343 mg/dL (70-110)
[2024-03-29] MEDS: aspirin 81 mg EC Tablet PO (08:35)
[2024-03-29] MEDS: amlodipine 5 mg Tablet 2.5 MG PO (08:36)
[2024-03-29] MEDS: folic acid 1 mg Tablet PO (08:37)
[2024-03-29] MEDS: lisinopril 20 mg Tablet 40 MG PO (08:37)
[2024-03-29] MEDS: thiamine 100 mg Tablet PO (08:38)
[2024-03-29] MEDS: clopidogrel 75 mg Tablet PO (08:38)
[2024-03-29] MEDS: clotrimazole 1% cream 30 gm 1 APPLIC TOPICAL (08:38)
[2024-03-29] MEDS: pantoprazole 40 mg SDV IVP (08:39)
[2024-03-29] MEDS: insulin lispro 100 unit/1 mL SUBCUT ×3 (08:39→17:58)
[2024-03-29] MEDS: sennosides-docusate Tablet 1 TAB PO (08:51)
[2024-03-29 11:57] LABS: Glucose Point of Care 211 mg/dL (70-110)
[2024-03-29] MEDS: enoxaparin 40 mg/0.4 mL Syringe SUBCUT (12:34)
--- NOTE | 2024-03-29 14:15 | P.PN_ITS ---
Subjective 2 Subjective: Patient still complaining of headache intermittently, with nausea, still has nystagmus Agreeable for rehab Gets hypertensive intermittently added amlodipine 5 mg twice daily along hydralazine and chlorthalidone CT head unremarkable No active concern for press syndrome Vitals/I&O/Wt Last Vital Signs Temp 97.2 F L 03/29/24 12:00 Pulse 87 03/29/24 12:00 Resp 19 H 03/29/24 12:00 BP 176/107 03/29/24 12:00 Pulse Ox 95 03/29/24 09:58 O2 Del Method Room Air 03/29/24 09:58 03/28/24 03/29/24 03/29/24 22:59 06:59 14:59 Intake Total 450 / 1890 118 / 118 Balance 450 / 1890 118 / 118 Weight last 48 hrs Weight 96.933 kg Weight 106.005 kg Physical Exam 2 Narrative: Euvolemic Good strength of upper and lower extremities Central nystagmus noted Not able to look towards his right Complaining of headache intermittently Hypertensive Nystagmus noted, pupils reactive to light no Active focal deficit Hypertensive Alert and awake GCS 15 Data 03/28/24 04:05 03/28/24 04:05 A&P Assessment and plan (1) Non compliance w medication regimen: (2) Depression: Qualifiers: Depression Type: unspecified Qualified Code(s): F32.9 - Major depressive disorder, single episode, unspecified (3) Anxiety disorder: Qualifiers: Anxiety disorder type: other mixed anxiety disorder Qualified Code(s): F41.3 - Other mixed anxiety disorders (4) Alcoholism in recovery: (5) Hypertension: (6) Right pontine stroke: (7) Occlusion of right vertebral artery: (8) Hypertensive urgency: Plan Pontine stroke cerebellar involvement Pica syndrome Patient will need rehab Hypertensive urgency Added chlorthalidone to lisinopril 40 mg and amlodipine 5 mg twice a day regimen added hydralazine as well No active concern for press syndrome Head CT unremarkable Awaiting placement Full code Tolerating diet Currently on dysphagia diet Diet will be advanced as per speech therapy recommendations DVT prophylaxis Lovenox Continue dual antiplatelet therapy Patient can be transferred to medical floor out of ICU Attestations 2 Medical Necessity Statement*: Out of ICU to [facility] Diagnoses Non compliance w medication regimen Z91.14 Depression, unspecified depression type F32.9 Depression Type: unspecified Other mixed anxiety disorders F41.3 Anxiety disorder type: other mixed anxiety disorder Alcoholism in recovery F10.21 Essential hypertension I10 Right pontine stroke I63.50 Occlusion of right vertebral artery I65.01 Hypertensive urgency I16.0
[2024-03-29] MEDS: hyDRALAzine 25 mg Tablet PO ×2 (15:27→20:16)
[2024-03-29] MEDS: chlorthalidone 25 mg Tablet PO (15:27)
[2024-03-29 17:57] LABS: Glucose Point of Care 194 mg/dL (70-110)
[2024-03-29] MEDS: amlodipine 5 mg Tablet PO (17:58)
[2024-03-29 20:14] LABS: Glucose Point of Care 299 mg/dL (70-110)
[2024-03-29] MEDS: atorvastatin 40 mg Tablet 80 MG PO (20:15)
[2024-03-29] MEDS: insulin glargine 100 units/1 mL 20 UNIT SUBCUT (20:16)
[2024-03-29 21:08] LABS: PROTEIN S, ACTIVITY 103 % normal (70-150)
[2024-03-30] VITALS (23 sets, daily range): BP systolic 125–158; BP diastolic 80–113; PULSE 78–122; RESP 13–26; TEMP 36.8–37.2; O2SAT 92–96; BMI 27.6
[2024-03-30] MEDS: ondansetron 2 mg/ML SDV 2 mL 4 MG IVP ×2 (00:10→08:30)
[2024-03-30 08:08] LABS: Glucose Point of Care 299 mg/dL (70-110)
[2024-03-30] MEDS: aspirin 81 mg EC Tablet PO (08:22)
[2024-03-30] MEDS: chlorthalidone 25 mg Tablet PO (08:22)
[2024-03-30] MEDS: clopidogrel 75 mg Tablet PO (08:22)
[2024-03-30] MEDS: sennosides-docusate Tablet 1 TAB PO (08:23)
[2024-03-30] MEDS: lisinopril 20 mg Tablet 40 MG PO (08:23)
[2024-03-30] MEDS: hyDRALAzine 25 mg Tablet PO (08:23)
[2024-03-30] MEDS: amlodipine 5 mg Tablet PO ×2 (08:23→17:55)
[2024-03-30] MEDS: pantoprazole 40 mg SDV IVP (08:23)
[2024-03-30] MEDS: thiamine 100 mg Tablet PO (08:23)
[2024-03-30] MEDS: folic acid 1 mg Tablet PO (08:23)
[2024-03-30] MEDS: insulin lispro 100 unit/1 mL SUBCUT ×3 (08:24→17:55)
--- NOTE | 2024-03-30 09:17 | PC.NURSE ---
Pt resting in bed, had one episode of vomiting this morning. PRN Zofran given per DEC.
[2024-03-30 11:55] LABS: Glucose Point of Care 303 mg/dL (70-110)
[2024-03-30] MEDS: enoxaparin 40 mg/0.4 mL Syringe SUBCUT (12:01)
[2024-03-30 12:24] LABS: Anti-Double Strand DNA AB 1 IU/mL; Jo-1 Antibody <1.0 NEG AI (<1.0 NEG); SS-B/LA IGG <1.0 NEG AI (<1.0 NEG); Scleroderma Ab(Scl-70) Ab <1.0 NEG AI (<1.0 NEG); Ss-A/Ro Igg <1.0 NEG AI (<1.0 NEG)
--- NOTE | 2024-03-30 13:33 | P.PN_ITS ---
Subjective 2 Subjective: Blood pressure is still fluctuating I will increase the dose of chlorthalidone and hydralazine Increase dose of Lantus to 30 units Awaiting placement Can be transferred out of ICU once we have a bed upstairs Currently patient is on hydralazine, amlodipine, lisinopril, spironolactone added today Chlorthalidone Vitals/I&O/Wt Last Vital Signs Temp 98.2 F 03/30/24 09:04 Pulse 93 03/30/24 12:00 Resp 22 H 03/30/24 12:00 BP 142/102 03/30/24 12:00 Pulse Ox 93 03/30/24 12:00 O2 Del Method Room Air 03/30/24 09:44 03/29/24 03/30/24 03/30/24 22:59 06:59 14:59 Intake Total 480 / 838 240 / 240 Output Total 425 / 425 Balance 480 / 838 -425 / 413 240 / 240 Weight last 48 hrs Weight 94.801 kg Weight 96.933 kg Physical Exam 2 Narrative: Patient is wearing an eye patch GCS 15 No new focal deficit Central nystagmus present Disconjugate eye movement Pleasant and cooperative Family at the bedside This morning blood pressure 140/90 mg Which fluctuates throughout the day S1, S2 Patient experienced nausea today Data 03/28/24 04:05 03/28/24 04:05 A&P Assessment and plan (1) Hx of medication noncompliance: (2) Depression: Qualifiers: Depression Type: unspecified Qualified Code(s): F32.9 - Major depressive disorder, single episode, unspecified (3) Alcoholism in recovery: (4) Hypertension: (5) Hypertensive urgency: (6) Diabetes mellitus type 2 in obese: (7) Uncontrolled diabetes mellitus: (8) Right pontine stroke: (9) Occlusion of right vertebral artery: (10) Insomnia disorder: Qualifiers: Insomnia type: psychophysiologic Qualified Code(s): F51.04 - Psychophysiologic insomnia Plan Can be transferred out of ICU to [facility] Added spironolactone to to current regimen of amlodipine, lisinopril, hydralazine and chlorthalidone Increase the dose of Lantus 30 units Patient is still hyperglycemic No acute signs of withdrawal Number dysfunction patient gets central nystagmus, nausea vomiting related to cerebellar stroke I do not suspect brain herniation MRI head did not show significant edema Awaiting placement Attestations 2 Medical Necessity Statement*: Continue medical management Diagnoses Hx of medication noncompliance Z91.148 Depression, unspecified depression type F32.9 Depression Type: unspecified Alcoholism in recovery F10.21 Essential hypertension I10 Hypertensive urgency I16.0 Diabetes mellitus type 2 in obese E11.69; E66.9 Uncontrolled diabetes mellitus Right pontine stroke I63.50 Occlusion of right vertebral artery I65.01 Psychophysiological insomnia F51.04 Insomnia type: psychophysiologic
[2024-03-30] MEDS: spironolactone 25 mg Tablet PO (14:23)
[2024-03-30] MEDS: hyDRALAzine 25 mg Tablet 100 MG PO ×2 (14:24→20:58)
[2024-03-30 15:40] LABS: Methylmalonic Acid 55 nmol/L (87-318)
[2024-03-30 17:58] LABS: Glucose Point of Care 317 mg/dL (70-110)
[2024-03-30 20:39] LABS: Glucose Point of Care 313 mg/dL (70-110)
[2024-03-30] MEDS: insulin glargine 100 units/1 mL 30 UNIT SUBCUT (20:59)
[2024-03-30] MEDS: atorvastatin 40 mg Tablet 80 MG PO (20:59)
[2024-03-31] VITALS: BP 118/74; PULSE 97; RESP 16; TEMP 37; O2SAT 96
[2024-03-31 03:40] LABS: PROTEIN C, ACTIVITY >200 % normal (70-180)
[2024-03-31 05:15] VITALS: PULSE 94
[2024-03-31 05:36] VITALS: BP 132/87; PULSE 107; RESP 18; TEMP 37; O2SAT 95
[2024-03-31 06:24] LABS: Glucose Point of Care 349 mg/dL (70-110)
[2024-03-31] MEDS: amlodipine 5 mg Tablet PO (08:22)
[2024-03-31] MEDS: spironolactone 25 mg Tablet PO (08:22)
[2024-03-31] MEDS: lisinopril 20 mg Tablet 40 MG PO (08:22)
[2024-03-31] MEDS: hyDRALAzine 25 mg Tablet 100 MG PO (08:23)
[2024-03-31] MEDS: clopidogrel 75 mg Tablet PO (08:23)
[2024-03-31] MEDS: thiamine 100 mg Tablet PO (08:23)
[2024-03-31] MEDS: folic acid 1 mg Tablet PO (08:23)
[2024-03-31] MEDS: aspirin 81 mg EC Tablet PO (08:23)
[2024-03-31] MEDS: sennosides-docusate Tablet 1 TAB PO (08:23)
[2024-03-31] MEDS: pantoprazole 40 mg SDV IVP (08:23)
[2024-03-31] MEDS: chlorthalidone 25 mg Tablet 50 MG PO (08:23)
[2024-03-31] MEDS: insulin lispro 100 unit/1 mL SUBCUT (08:27)
[2024-03-31 08:28] VITALS: BP 148/88; PULSE 114; RESP 18; TEMP 36.4; O2SAT 94
--- NOTE | 2024-03-31 11:02 | P.DS_ITS ---
Discharge Providers Date of Admission: 03/25/24 21:43 Date of Discharge: March 31, 2024 Attending Provider at Admission: Meryl Mueller MD Attending Provider at Discharge: Marguerite Downs MD Primary Care Provider: HIMANSHU Ricks Diagnoses at Discharge Discharge Diagnosis (1) Hx of medication noncompliance: Status: Acute (2) Depression: Status: Acute Qualifiers: Depression Type: unspecified Qualified Code(s): F32.9 - Major depressive disorder, single episode, unspecified (3) Alcoholism in recovery: Status: Acute (4) Hypertension: Status: Acute (5) Hypertensive urgency: Status: Acute (6) Diabetes mellitus type 2 in obese: Status: Acute (7) Uncontrolled diabetes mellitus: Status: Acute (8) Right pontine stroke: Status: Acute (9) Occlusion of right vertebral artery: Status: Acute (10) Insomnia disorder: Status: Acute Qualifiers: Insomnia type: psychophysiologic Qualified Code(s): F51.04 - Psychophysiologic insomnia Reason for Visit Reason for Visit: n/v dissy [facility] Hospital Course Hospital Course Jarred Dangelo is a 38 year old male with a past medical history of diabetes mellitus, he has been out of prescription for his Sitagliptin recently, history of hypertension on lisinopril typically. Patient presented to the emergency room this morning at around 1130 complaining of dizziness. He had been working outdoors and initial impression was that of heatstroke. His NIH stroke scale upon admission was at 0. There was some complaint of weakness over his right face earlier in the morning. He continued to remain nauseous during the course of the day. He was being planned to be discharged at around 5 PM but was unable to stand up to get out of bed. He had now developed a left-sided ataxia and abnormal eye movements. Also complained of left-sided facial numbness which raise concern for a brainstem stroke. He was evaluated by neurology in the ER. He had a stat CT head and a CTA of the head and neck which showed right vertebral artery occlusion and a brainstem stroke. Case was discussed by Dr. Vance with neurology at [facility]. There was no procedure available for treatment of her right vertebral artery occlusion and brainstem stroke other than treating with TNK up to 4-1/2 hours from last well-known but patient was out of the window for the same. He is now being admitted to the hospital in view of brainstem stroke and close neuromonitoring. At the time of this assessment he continues to have persistent nausea and vomiting, preferring to lay in bed at this time. Hospital course Patient was admitted to the ICU for close neuro monitoring, patient remained hyp ertensive and hyperglycemic, his hemoglobin A1c is above 10, he was put on Lantus 35 units along sliding scale, he was given hydralazine, amlodipine chlorthalidone lisinopril for hypertensive urgency, he was also kept on thiamine and folic acid however he did not show any sign of alcohol withdrawal During hospitalization he required multiple CT scans of head which did not show any cerebral edema or progression of stroke he has been experiencing central nystagmus with nausea and vomiting which has improved somewhat at the time of discharge, at the time of discharge blood pressure 148/88 mmHg, patient is doing well on room air, had 2 bowel movements before discharge, he will get aspirin, Plavix for 20 days then he will continue aspirin along atorvastatin He will resume Lantus 35 units along with Januvia and metformin Echo bubble study did not show any intracardiac shunt Autoimmune workup negative, protein S activity is normal, protein C activity greater than 200, no deficiency noted Vitamin B12 above 600 He is going to [facility] inpatient rehab Physical Exam Narrative: Central nystagmus and nausea has improved to some extent Hemodynamically stable Awake and alert Able to use a walker on his own Able to go to the bathroom Had 2 bowel movements today Discharge Data Studies Completed and Pending Completed Studies During Hospitalization Category Date Time Status CT angio headneck* [id number] Stat Cat Scan 03/25/24 17:[address] head wo con* [id number] Routine Cat Scan 03/27/24 07:[address] head wo con* [id number] Stat Cat Scan 03/25/24 12:[address] head wo con* [id number] Stat Cat Scan 03/29/24 04:34 Completed XR chest 1V portable [id number] Stat Exams 03/25/24 12:07 Completed MR head wo con* [id number] Routine MRI 03/26/24 11:54 Completed MRA head [MR angio head wo con [id number]] Routine MRI 03/26/24 11:54 Completed MRA neck [MR angio neck wo con [id number]] Routine MRI 03/26/24 11:54 Completed CV. echo complete* [id number] Routine Ultrasound 03/26/24 23:19 Completed CV. echo lmt wo/w bubble [id number] Routine Ultrasound 03/26/24 11:41 Completed US carotid duplex bilateral [CV carotid duplex BI* Ultrasound 03/27/24 12:01 Completed [id number]] Routine Pending at discharge Category Date Time Status [facility] [[facility] Profile] Routine Lab 03/26/24 11:50 Results Radiology Impressions Chest X-Ray 03/25/24 12:07 IMPRESSION: No lobar consolidation is appreciated.No interval acute cardiopulmonary changes are appreciated. Head/Neck CTA 03/25/24 17:13 IMPRESSION: 1. No large vessel occlusion in the anterior intracranial arteries. 2. Acute occlusion of the right vertebral artery at the craniocervical junction suspicious for dissection. The right PICA is occluded. Short segment of moderate stenosis in the left V4 segment with questionable noncalcified filling defect at the origin of PICA with no occlusion of the left PICA. 3. Ill-defined hypodensity suspected in the central and right aspect of the dimitris and in the inferior paramedian aspect of the right cerebellar hemisphere. In the setting of right vertebral occlusion these findings are concerning for acute infarction involving the brainstem and the cerebellum. ASSESSMENT: ASPECTS ([place] Stroke Program Early CT Score) is 10. THIS REPORT CONTAINS FINDINGS THAT MAY BE CRITICAL TO PATIENT CARE. The findings were verbally communicated via telephone conference with MYRNA IMPRESSION: 1. No carotid stenosis. No vertebral occlusion or stenosis. 2. Right vestibulum of the oral cavity is significantly dilated with air bulging the right cheek for correlation with physical exam. REFERENCES: NASCET CRITERIA. The degree of stenosis in the cervical segment of the internal carotid artery is based on NASCET criteria. Normal is no stenosis. Mild is less than 50% stenosis. Moderate is 50-69% stenosis. Severe is 70% to 99% stenosis. Total occlusion is no detectable patent lumen. Head MRI 03/26/24 11:54 IMPRESSION: Restricted diffusion and matching FLAIR hyperintensity right PICA territory (inferior right cerebellar hemisphere including tonsil and inferior vermis, small portion right pontine tegmentum). Findings consistent acute infarct. ADDENDUM: 03/26/24 [id number] THIS REPORT CONTAINS FINDINGS THAT MAY BE CRITICAL TO PATIENT CARE. The findings were verbally communicated via telephone conference with MARGUERITE DOWNS at 5:55 PM CDT on 03/26/2024. The findings were acknowledged and understood. Head MRA 03/26/24 11:54 IMPRESSION: Redemonstration right vertebral artery occlusion (see CTA 03/25/2024). Neck MRA 03/26/24 11:54 IMPRESSION: Occlusion of the right vertebral artery at the craniocervical junction as seen on yesterday's CTA. REFERENCES: NASCET CRITERIA. The degree of stenosis in the cervical segment of the internal carotid artery is based on NASCET criteria. Normal is no stenosis. Mild is less than 50% stenosis. Moderate is 50-69% stenosis. Severe is 70% to 99% stenosis. Total occlusion is no detectable patent lumen. Carotid Doppler Study 03/27/24 12:01 IMPRESSION: No carotid arterial stenosis. REFERENCES: SRU CRITERIA. The degree of internal carotid artery stenosis is based on criteria defined by the Society of Radiologists in Ultrasound (SRU). Normal is no stenosis. Mild is less than 50% stenosis. Moderate is 50-69% stenosis. Severe is greater than 69% stenosis to near occlusion. Near occlusion is a markedly narrowed lumen. Total occlusion is no detectable patent lumen. Head CT 03/29/24 04:34 IMPRESSION: No acute intracranial abnormality. Laboratory Results WBC 11.42 10^3/uL (3.29-11.43) 03/28/24 04:05 RBC 5.86 10^6/uL (3.85-5.65) H 03/28/24 04:05 Hgb 17.10 g/dL (11.27-16.99) H 03/28/24 04:05 Hct 50.0 % (37-53) 03/28/24 04:05 MCV 85.3 fl (82-101) 03/28/24 04:05 MCH 29.2 pg (27-33) 03/28/24 04:05 MCHC 34.2 g/dL (30-55) 03/28/24 04:05 RDW 13.2 % (12.1-15.1) 03/28/24 04:05 Plt Count 211 10^3/cmm (157-399) 03/28/24 04:05 MPV 9.5 fL (7.4-10.4) 03/28/24 04:05 Neut % (Auto) 68.2 % 03/28/24 04:05 Lymph % (Auto) 22.8 % 03/28/24 04:05 [place] % (Auto) 7.4 % 03/28/24 04:05 Eos % (Auto) 0.8 % 03/28/24 04:05 Baso % (Auto) 0.4 % 03/28/24 04:05 Neut # (Auto) 7.80 10^3/uL (1.8-7.7) H 03/28/24 04:05 Lymph # (Auto) 2.6 10^3/uL (0.8-4.8) 03/28/24 04:05 [place] # (Auto) 0.8 10^3/uL (0.2-0.9) 03/28/24 04:05 Eos # (Auto) 0.1 10^3/uL (0.0-0.8) 03/28/24 04:05 Baso # (Auto) 0.0 10^3/uL (0.0-0.1) 03/28/24 04:05 Nucleated RBC % (auto) 0 % 03/28/24 04:05 Nucleated RBCs # 0.0 /100WBC 03/28/24 04:05 Prot C Funct Activity >200 % normal (70-180) H 03/26/24 11:50 Protein S Activity 103 % normal (70-150) 03/26/24 11:50 Specimen Type Arterial 03/25/24 12:22 Sample Site Radial, right 03/25/24 12:22 ABG pH 7.38 (7.35-7.45) 03/25/24 12:22 ABG pCO2 39.6 mmHg (35-45) 03/25/24 12:22 ABG pO2 84.5 mmHg (80.0-100.0) 03/25/24 12:22 ABG PO2/FiO2 Ratio 0 03/25/24 12:22 ABG HCO3 23.6 mmol/L (22-26) 03/25/24 12:22 ABG Base Excess -1.3 mmol/L (-2.0-2.0) 03/25/24 12:22 Gerard Test N/a 03/25/24 12:22 Hematocrit 59.3 % (42-52) H 03/25/24 12:22 O2 Delivery Device Nc 03/25/24 12:22 O2 Liters/Min 3.0 % 03/25/24 12:22 FiO2 32.0 % 03/25/24 12:22 Gynecologist ID [place] 03/25/24 12:22 Sodium 137 mmol/L (136-145) 03/28/24 04:05 Potassium 3.6 mmol/L (3.5-5.1) 03/28/24 04:05 Chloride 100 mmol/L (98-107) 03/28/24 04:05 Carbon Dioxide 26 mmol/L (22-29) 03/28/24 04:05 Anion Gap 14.6 (5-19) 03/28/24 04:05 BUN 17 mg/dL (6-20) 03/28/24 04:05 Creatinine 0.6 mg/dL (0.7-1.2) L 03/28/24 04:05 GFR Calculation 150.0 mL/min (90-130) H 03/28/24 04:05 Glucose 210 mg/dL (65-115) H 03/28/24 04:05 POC Glucose 349 mg/dL (70-110) H 03/31/24 06:17 Estimat Average Glucose 263 03/25/24 23:43 Hemoglobin A1c 10.8 % (4.0-6.0) H 03/25/24 23:43 Calculated Osmolality 303 mOsm/kg (285-295) H 03/27/24 03:21 Lactic Acid 3.3 mmol/L (0.5-2.2) H 03/25/24 11:42 Lactic Acid (Sepsis) 1.5 mmol/L (0.5-2.2) 03/25/24 14:54 Calcium 8.1 mg/dL (8.5-10.5) L 03/28/24 04:05 Phosphorus 3.2 mg/dL (2.5-4.5) 03/28/24 04:05 Magnesium 1.9 mg/dL (1.7-2.3) 03/28/24 04:05 Total Bilirubin 0.8 mg/dL (0.15-1.2) 03/25/24 23:43 AST 9 U/L (0-40) 03/25/24 23:43 ALT 19 U/L (0-41) 03/25/24 23:43 Alkaline Phosphatase 106 U/L (40-130) 03/25/24 23:43 Creatine Kinase 64 U/L (39-308) 03/25/24 11:42 Troponin T Baseline 7 ng/L (0-15) 03/25/24 11:42 Troponin T 120 Minute 6.73 ng/L (0-15) 03/25/24 13:09 Delta Troponin T -0.27 ABS# (0-10) L 03/25/24 13:09 C-Reactive Protein 4.5 mg/L (0.0-4.9) 03/25/24 11:42 NT-Pro-B Natriuret Pep < 36 pg/mL (0-125) 03/25/24 11:42 Total Protein 7.2 g/dL (6.6-8.7) 03/25/24 23:43 Albumin 3.4 g/dL (3.5-5.2) L 03/28/24 04:05 Globulin 2.9 g/dL (1.3-4.6) 03/25/24 23:43 Triglycerides 290 mg/dL (0-150) H 03/25/24 23:43 Cholesterol 225 mg/dL (0-200) H 03/25/24 23:43 LDL Cholesterol, Calc 136 mg/dL (50-129) H 03/25/24 23:43 HDL Cholesterol 31 mg/dL (60-100) L 03/25/24 23:43 LDL/HDL Ratio 4.39 RATIO (0.00-3.22) H 03/25/24 23:43 Cholesterol/HDL Ratio 7.26 mg/dL (1.0-5.00) H 03/25/24 23:43 Lipase 26 U/L (13-60) 03/25/24 11:42 Vitamin B12 681 pg/mL (232-1245) 03/26/24 11:50 Methylmalonic Acid 55 nmol/L (87-318) L 03/26/24 11:50 Urine Color Yellow (Yellow) 03/25/24 13:14 Urine Appearance Clear (CLEAR) 03/25/24 13:14 Urine pH 5 (5-7) 03/25/24 13:14 Ur Specific [place] 1.010 (1.005-1.030) 03/25/24 13:14 Urine Protein 3+ (Negative) H 03/25/24 13:14 Urine Glucose (UA) 4+ (Normal) H 03/25/24 13:14 Urine Ketones 1+ (Negative) H 03/25/24 13:14 Urine Blood Neg (Negative) 03/25/24 13:14 Urine Nitrate Negative (Negative) 03/25/24 13:14 Urine Bilirubin Neg (Negative) 03/25/24 13:14 Urine Urobilinogen Norm mg/dL (Negative) 03/25/24 13:14 Ur Leukocyte Esterase Negative (Negative) 03/25/24 13:14 Urine RBC Rare /hpf (0-2) 03/25/24 13:14 Urine WBC None /hpf (0-5) 03/25/24 13:14 Ur Squamous Epith Cells None /hpf (0-5) 03/25/24 13:14 Amorphous Sediment Not Reportable 03/25/24 13:14 Urine Bacteria None /hpf (NONE) 03/25/24 13:14 Urine Opiates Screen Negative ng/mL (Negative) 03/25/24 13:14 Ur Barbiturates Screen Negative ng/mL (Negative) 03/25/24 13:14 Ur Phencyclidine Scrn Negative ng/mL (Negative) 03/25/24 13:14 Ur Amphetamines Screen Negative ng/mL (Negative) 03/25/24 13:14 U Benzodiazepines Scrn Negative ng/mL (Negative) 03/25/24 13:14 Urine Cocaine Screen Negative ng/mL (Negative) 03/25/24 13:14 U Marijuana (THC) Screen Negative ng/mL (Negative) 03/25/24 13:14 Serum Ketones Negative (Negative) 03/25/24 19:02 ISABEL-1 Antibody <1.0 neg AI (<1.0 NEG) 03/26/24 11:50 SS-A/Ro IgG Antibody <1.0 neg AI (<1.0 NEG) 03/26/24 11:50 SS-B/La IgG Antibody <1.0 neg AI (<1.0 NEG) 03/26/24 11:50 Scl-70 Scleroderma Ab <1.0 neg AI (<1.0 NEG) 03/26/24 11:50 Anti-ds DNA IgG Ab 1 IU/mL 03/26/24 11:50 Vitals Last Vital Signs Temp 97.6 F 03/31/24 08:28 Pulse 114 H 03/31/24 08:28 Resp 18 03/31/24 08:28 BP 148/88 03/31/24 08:28 Pulse Ox 94 03/31/24 08:28 O2 Del Method Room Air 03/31/24 09:28 Discharge Plan Discharge Patient Disposition: Xfer Other Condition: Stable Prescriptions: New ondansetron 4 mg tablet,disintegrating 4 mg PO TID PRN (Reason: nausea and vomiting) 4 Days Qty: 20 0RF atorvastatin 40 mg Tablet 80 mg PO BEDTIME Qty: 90 0RF Lantus U-100 Insulin 100 unit/mL Solution 35 unit SUBCUT BEDTIME Qty: 10 0RF hydralazine 25 mg Tablet 100 mg PO TID Qty: 90 0RF clopidogrel 75 mg Tablet 75 mg PO DAILY Qty: 15 0RF chlorthalidone 25 mg Tablet 50 mg PO DAILY Qty: 60 0RF amlodipine 5 mg Tablet 5 mg PO BID Qty: 60 0RF aspirin 81 mg Tablet,Delayed Release (Dr/Ec) 81 mg PO DAILY Qty: 90 0RF lisinopril 20 mg Tablet 40 mg PO DAILY Qty: 60 0RF spironolactone 25 mg Tablet 25 mg PO DAILY Qty: 60 0RF Continued Januvia 50 mg tablet 50 mg PO DAILY 90 Days Qty: 90 0RF Rx Instructions: 340B (pt has no insurance) lorazepam [Ativan] 0.5 mg tablet 0.5 mg PO TID PRN (Reason: anxiety) Qty: 60 1RF lisinopril 20 mg tablet 20 mg PO BEDTIME fluconazole 150 mg tablet 150 mg PO Q7D Antifungal (clotrimazole) 1 % cream 1 applic TOPICAL BID Discontinued glipizide 5 mg Tablet 5 mg PO BID Discharge Orders: Discharge Order (Routine); Ordered 03/31/24 Ordered By: Marguerite Downs Referrals: Diya Payne, RADIOLOGY CLERK [Primary Care Provider] - 1-3 days Discharge Diet: Advance as tolerated Discharge Activity: Limit activity as instructed Patient Instructions: Stroke (GEN), Stroke Stoplight Activity Restrictions/Additional Instructions: Please take aspirin Plavix for 20 days then start taking aspirin only You are given multiple medication for blood pressure but keep an eye on blood pressure there is a chance that your blood pressure might get lower in next 4 to 5 days once you have Seen level of drugs then you might have to cut back on antiplatelet regimen For your hypertension I am giving you Lantus 35 units, you can continue metformin and Januvia Discharge Attestations Time Spent in Discharge Care*: greater than 30 min Quality Metrics Clinical Quality Measures [ No reported AMI, CVA or VTE this stay] Coding Level of Care Code Acute Code for Chg Fwd Diagnoses Hx of medication noncompliance Z91.148 Depression, unspecified depression type F32.9 Depression Type: unspecified Alcoholism in recovery F10.21 Essential hypertension I10 Hypertensive urgency I16.0 Diabetes mellitus type 2 in obese E11.69; E66.9 Uncontrolled diabetes mellitus Right pontine stroke I63.50 Occlusion of right vertebral artery I65.01 Psychophysiological insomnia F51.04 Insomnia type: psychophysiologic
[2024-03-31 11:52] LABS: Glucose Point of Care 398 mg/dL (70-110)
[2024-03-31 12:07] VITALS: BP 108/70; PULSE 116; RESP 18; TEMP 36.8; O2SAT 95
== END 2024-03-31 12:58 | DRG 66 ==
LOC: ER 17:00 → ICU 21:43 → MEDSURG 03-30 17:15
PROVIDERS: Family Medicine; Internal Medicine; Admitting Provider Student in an Organized Health Care Education/Training Program; Emergency Provider Emergency Medicine; PCP Registered Nurse; Visit Provider Internal Medicine
DX: I63.09 Cerebral infarction due to thrombosis of other precerebral artery (principal); R27.0 Ataxia, unspecified; H53.2 Diplopia; I63.011 Cerebral infarction due to thrombosis of right vertebral artery; E11.65 Type 2 diabetes mellitus with hyperglycemia; I10 Essential (primary) hypertension; G47.00 Insomnia, unspecified; E66.9 Obesity, unspecified; F17.210 Nicotine dependence, cigarettes, uncomplicated; T50.996A Underdosing of other drugs, medicaments and biological substances, initial encounter; F51.04 Psychophysiologic insomnia; E87.6 Hypokalemia; I16.0 Hypertensive urgency; F10.21 Alcohol dependence, in remission; F32.9 Major depressive disorder, single episode, unspecified; Z68.28 Body mass index [BMI] 28.0-28.9, adult; Z91.128 Patient's intentional underdosing of medication regimen for other reason
CPT/HCPCS: 36415; 36416; 36600; 70450; 70496; 70498; 70544; 70547; 70551; 71045; 80048; 80053; 80061; 80069; 80306; 81001; 82009; 82550; 82607; 82803; 82962; 83036; 83605; 83690; 83735; 83880; 83921; 84100; 84484; 85025; 85303; 85306; 86140; 86225; 86235; 92507; 92526; 92610; 93005; 93306; 93880; 96361; 96372; 96374; 96376; 97110; 97116; 97161; 97166; 97530; 97535; 99285; C8924; C9113; J1650; J1815; J2405; J7030; Q9967

== ENCOUNTER → 2024-04-19 16:19 | Outpatient (BNVA) | payer BC, SELFPAY | PROVIDERS: PCP Registered Nurse; Visit Provider Registered Nurse | DX: E55.9 Vitamin D deficiency, unspecified (principal) | CPT/HCPCS: 80053; 80061; 82306 ==

== ENCOUNTER → 2024-06-17 14:58 | Outpatient (BNVA) | payer BC, SELFPAY | PROVIDERS: PCP Registered Nurse; Visit Provider Registered Nurse | DX: E11.9 Type 2 diabetes mellitus without complications (principal) | CPT/HCPCS: 83036; 85025 ==

== ENCOUNTER → 2024-09-14 15:33 | Outpatient (BNVA) | payer BC, SELFPAY | PROVIDERS: PCP Registered Nurse; Visit Provider Registered Nurse | DX: N52.9 Male erectile dysfunction, unspecified (principal); E11.9 Type 2 diabetes mellitus without complications; E11.69 Type 2 diabetes mellitus with other specified complication; E66.9 Obesity, unspecified | CPT/HCPCS: 80053; 83036 ==

== ENCOUNTER → 2024-12-14 10:04 | Outpatient (BNVA) | payer BC, SELFPAY | PROVIDERS: PCP Registered Nurse; Visit Provider Registered Nurse | DX: E11.69 Type 2 diabetes mellitus with other specified complication (principal); E66.9 Obesity, unspecified; N52.9 Male erectile dysfunction, unspecified; Z20.2 Contact with and (suspected) exposure to infections with a predominantly sexual mode of transmission | CPT/HCPCS: 80053; 83036; 85025; 87491; 87591; 87661 ==

== ENCOUNTER 2025-01-15 08:28 | Emergency (ER) | payer BC, SELFPAY ==
[2025-01-15 08:37] VITALS: BP 171/103; PULSE 84; RESP 16; TEMP 37.1; O2SAT 95; BMI 30.3
[2025-01-15 09:06] VITALS: BP 176/105; PULSE 83; O2SAT 93
[2025-01-15] MEDS: metoprolol tartrate 25 mg Tablet PO (09:09)
[2025-01-15] MEDS: hyDRALAzine 25 mg Tablet PO (09:09)
[2025-01-15] MEDS: lisinopril 20 mg Tablet PO (09:09)
[2025-01-15 10:16] VITALS: BP 161/99; PULSE 74; O2SAT 95
[2025-01-15] MEDS: lidocaine 1% 10 ML INJ SUBCUT (10:43)
[2025-01-15] MEDS: phenylephrine 10 mg/ml SDV 1 mL IV (10:44)
--- NOTE | 2025-01-15 11:34 | ED_ITS ---
HPI - General Adult General: Chief complaint: General Medical Stated complaint: med complication Time Seen by Provider: 01/15/25 08:35 History of Present Illness: This patient is a 39-year-old male presenting with a priapism. He reports that he has had an erection since about 2:30 in the morning. He was recently prescribed compounded Trimix which he injects. About 2 weeks ago he injected with 1 mg and did not have much of a response. Last night he used 2 mg and now presents with a priapism. He denies any other complaints. He is uncomfortable. He also has extensive medical history including diabetes, hypertension. He recently had a stroke. He has not taken any of his medications this morning. Related Data Home Medications ?Medication ?Instructions ?Recorded ?Confirmed docusate sodium 100 mg capsule 100 mg PO DAILY PRN 12/14/24 Previous Rx's ?Medication ?Instructions ?Recorded flash glucose scanning reader #1 ea 04/19/24 (FreeStyle Ly 2 [place]) flash glucose sensor (FreeStyle #2 ea 04/19/24 Ly 2 Sensor kit) aspirin 81 mg tablet,delayed See Rx Instructions .Rout e 07/07/24 release .COMPLEX #90 tabs sildenafil 50 mg tablet (Viagra) 50 mg PO DAILY PRN se xual activity 07/15/24 30 days #7 tabs ergocalciferol (vitamin D2) 1,250 See Rx Instructions .Route 07/21/24 mcg (50,000 unit) capsule (Vitamin .COMPLEX #12 caps D2) cetirizine 10 mg capsule (Zyrtec) 10 mg PO DAILY PRN a llergy 08/04/24 symptoms 30 days #30 caps insulin lispro 100 unit/mL See Rx Instructions SUBCUT 08/26/24 subcutaneous pen .COMPLEX #15 mL citalopram 20 mg tablet 20 mg PO DAILY 90 days #90 t abs 09/14/24 blood-glucose sensor (FreeStyle #2 ea 09/15/24 Ly 3 Sensor device) clopidogrel 75 mg tablet See Rx Instructions .Route 0 12/02/24 .COMPLEX #90 tabs thiamine mononitrate (vit B1) 100 See Rx Instructions .Route 12/02/24 mg tablet (Vitamin B-1 .COMPLEX #90 tabs (mononitrate)) acyclovir 800 mg tablet 800 mg PO BID 7 days #14 tab s 12/14/24 atorvastatin 80 mg tablet See Rx Instructions .Route 0 12/14/24 .COMPLEX #90 tabs hydralazine 25 mg tablet 25 mg PO BID 90 days #180 ta bs 12/14/24 lisinopril 20 mg tablet See Rx Instructions .Route 0 12/14/24 .COMPLEX #180 tabs metoprolol tartrate 25 mg tablet See Rx Instructions . Route 12/14/24 .COMPLEX #180 tabs sitagliptin phosphate 100 mg tablet 100 mg PO DAILY 90 days #90 tabs 12/14/24 spironolactone 25 mg tablet 25 mg PO DAILY 90 days #90 tabs 12/14/24 insulin glargine 100 unit/mL 60 unit (0.6 mL) SUBCUT B ID 30 12/30/24 subcutaneous solution (Lantus days #36 mL U-100 Insulin) folic acid 1 mg tablet See Rx Instructions .Route 0 01/04/25 .COMPLEX #90 tabs insulin syringe-needle U-100 1 mL #100 ea 01/04/25 31 gauge x 5/16 pantoprazole 40 mg tablet,delayed See Rx Instructions .Route 01/04/25 release .COMPLEX #90 tabs Allergies Allergy/AdvReac Type Severity Reaction Status Date / Time No Known Allergies Allergy Verified 01/15/25 08:44 [facility] ED PFSH: Medical History Hypertension Occlusion of right vertebral artery Right pontine stroke Diabetes mellitus type 2 in obese Hypertensive urgency Uncontrolled diabetes mellitus Hx of medication noncompliance Hyperglycemia due to type 2 diabetes mellitus Alcoholism in recovery Non compliance w medication regimen Hyperlipidemia associated with type 2 diabetes mellitus Anxiety disorder Polysubstance abuse Heatstroke Insomnia disorder Depression Surgical History History of incision and drainage Left forearm 2018 Hx of cardiac cath 02/2014 Family History Father Diabetes Mother Diabetes Social History Smoking and tobacco/nicotine status: current every day tobacco/nicotine user Alcohol intake: never Substance/Drug Use: never Adopted: No Caregiver/support person: No Lives independently: No service: No Current occupational status: employed Sexually active: Yes Do you think of yourself as: Straight/Heterosexual Current gender identity: Male Physical Exam Const: COMMON NORMALS: no acute distress, patient oriented x3, no limitations and alert GENERAL APPEARANCE: cooperative Resp: COMMON NORMALS: normal respiratory effort, No use of accessory muscles and clear to auscultation bilaterally AUSCULTATION: clear to auscultation bilaterally Cardio: COMMON NORMALS: regular rate, regular rhythm and No murmurs present (Cardio) RATE: regular rate RHYTHM: regular rhythm GI: COMMON NORMALS: Normal to inspection, nondistended, normoactive bowel sounds present, Soft to palpation and non-tender INSPECTION: Yes normal to inspection AUSCULTATION: Yes normoactive bowel sounds PALPATION: Yes Soft to palpation : OTHER: Uncircumcised penis with a very firm erection. Normal testes. No masses, lesions. No hernias Back/Pelvis: COMMON NORMALS: thoracic and lumbar spine normal to inspection Neuro: COMMON NORMALS: patient oriented x3, moves all extremities, no focal motor deficits and no sensory deficits noted SENSORIUM/ORIENTATION: Yes alert Psych: COMMON NORMALS: mental status grossly normal, cooperative and normal affect Skin: COMMON NORMALS: no rashes or lesions noted and turgor normal GENERAL SKIN EXAM: no rashes or lesions noted and turgor normal Course Vital Signs: Vital signs: Vital Signs Temperature 98.7 F 01/15/25 08:37 Pulse Rate 74 01/15/25 10:16 Respiratory Rate 16 01/15/25 08:37 Blood Pressure 161/99 01/15/25 10:16 Pulse Oximetry 95 01/15/25 10:16 Oxygen Delivery Me thod Room Air 01/15/25 10:16 MDM - General Adult Medical Decision Making Patient presents with a priapism after using Trimix - Papverine/Phentolamine/prostaglandin. The priapism has been present for more than 4 hours but less than 24 hours. The patient was also quite hypertensive on arrival and he was given his regular home medications. His blood pressure had come down to about 150/90 at the time of the procedure. A dorsal penile block was done with 2% lidocaine and then an 18-gauge needle was used to aspirate appr oximately an mL of blood from the corpus callosum. Then a solution of 1 mL of normal saline containing 400 mcg of phenylephrine was injected. Within 45 minutes the erection had completely resolved. The patient was asymptomatic. There was a small amount of bruising at the site of the injection. He understands not to use any more of his medication until he has discussed this episode with his urologist. No radiology studies performed this visit Discharge Plan Discharge Patient Disposition: Home Clinical Impression: Ischemic priapism Erectile dysfunction Qualifiers: Erectile dysfunction type: unspecified Qualified Code(s): N52.9 - Male erectile dysfunction, unspecified Hypertension Qualifiers: Hypertension type: primary hypertension Qualified Code(s): I10 - Essential (primary) hypertension Condition: Stable Prescriptions: No Action docusate sodium 100 mg capsule 100 mg PO DAILY PRN sildenafil [Viagra] 50 mg tablet 50 mg PO DAILY PRN (Reason: sexual activity) 30 Days Qty: 7 0RF Rx Instructions: administer 30 minutes to 4 hours before activity citalopram 20 mg tablet 20 mg PO DAILY 90 Days Qty: 90 1RF (DME) FreeStyle Ly 3 Sensor Device See Rx Instructions .MEDSUPPLY Qty: 2 12RF Rx Instructions: Change every 14 days; Use as directed to check blood sugar (DME) FreeStyle Ly 2 Sensor Kit See Rx Instructions .MEDSUPPLY Qty: 2 11RF Rx Instructions: Change every 14 days; Use as directed to check blood sugar (DME) FreeStyle Ly 2 [place] Misc See Rx Instructions .MEDSUPPLY Qty: 1 0RF Rx Instructions: Use as directed to check blood sugar sitagliptin phosphate 100 mg tablet 100 mg PO DAILY 90 Days Qty: 90 0RF atorvastatin 80 mg tablet See Rx Instructions .ROUTE .COMPLEX Qty: 90 4RF Dose Instruction: TAKE 1 TABLET BY MOUTH EVERY DAY Rx Instructions: TAKE 1 TABLET BY MOUTH EVERY DAY hydralazine 25 mg tablet 25 mg PO BID 90 Days Qty: 180 1RF lisinopril 20 mg tablet See Rx Instructions .ROUTE .COMPLEX Qty: 180 1RF Dose Instruction: TAKE 1 TABLET BY MOUTH TWICE DAILY Rx Instructions: TAKE 1 TABLET BY MOUTH TWICE DAILY metoprolol tartrate 25 mg tablet See Rx Instructions .ROUTE .COMPLEX Qty: 180 1RF Dose Instruction: TAKE 1 TABLET BY MOUTH TWICE DAILY Rx Instructions: TAKE 1 TABLET BY MOUTH TWICE DAILY spironolactone 25 mg tablet 25 mg PO DAILY 90 Days Qty: 90 1RF acyclovir 800 mg tablet 800 mg PO BID 7 Days Qty: 14 1RF aspirin 81 mg tablet,delayed release (DR/EC) See Rx Instructions .ROUTE .COMPLEX Qty: 90 0RF Dose Instruction: TAKE 1 TABLET BY MOUTH EVERY DAY Rx Instructions: TAKE 1 TABLET BY MOUTH EVERY DAY ergocalciferol (vitamin D2) [Vitamin D2] 1,250 mcg (50,000 unit) capsule See Rx Instructions .ROUTE .COMPLEX Qty: 12 0RF Dose Instruction: take 1 capsule BY MOUTH every week Rx Instructions: take 1 capsule BY MOUTH every week Zyrtec 10 mg capsule 10 mg PO DAILY PRN (Reason: allergy symptoms) 30 Days Qty: 30 0RF insulin lispro 100 unit/mL insulin pen See Rx Instructions SUBCUT .COMPLEX Qty: 15 0RF Rx Instructions: 6 units in am and pm plus sliding scale if needed subcutaneously daily thiamine mononitrate (vit B1) [Vitamin B-1 (mononitrate)] 100 mg tablet See Rx Instructions .ROUTE .COMPLEX Qty: 90 0RF Dose Instruction: TAKE 1 TABLET BY MOUTH EVERY DAY Rx Instructions: TAKE 1 TABLET BY MOUTH EVERY DAY clopidogrel 75 mg tablet See Rx Instructions .ROUTE .COMPLEX Qty: 90 0RF Dose Instruction: TAKE 1 TABLET BY MOUTH EVERY DAY Rx Instructions: TAKE 1 TABLET BY MOUTH EVERY DAY insulin glargine [Lantus U-100 Insulin] 100 unit/mL solution 60 unit SUBCUT BID 30 Days Qty: 36 0RF folic acid 1 mg tablet See Rx Instructions .ROUTE .COMPLEX Qty: 90 0RF Dose Instruction: TAKE 1 TABLET BY MOUTH EVERY DAY Rx Instructions: TAKE 1 TABLET BY MOUTH EVERY DAY pantoprazole 40 mg tablet,delayed release (DR/EC) See Rx Instructions .ROUTE .COMPLEX Qty: 90 0RF Dose Instruction: TAKE 1 TABLET BY MOUTH EVERY DAY Rx Instructions: TAKE 1 TABLET BY MOUTH EVERY DAY (DME) insulin syringe-needle U-100 1 mL 31 gauge x 5/16 syringe See Rx Instructions .Route Qty: 100 0RF Rx Instructions: As directed with lantus at bedtime Discharge Orders: Discharge ED (Routine); Ordered 01/15/25 Ordered By: Ashley Groves Referrals: Diya Payne, HEAT TREATER APPRENTICE [Primary Care Provider] - Patient Instructions: Opioid Safety, Pain Management Activity Restrictions/Additional Instructions: No use of the ED medication again until you have discussed this episode with your urologist who prescribed the medication. Print Language: Wolof Coding Level of Care Code ED Computer Scientist for Skye Adams
== END 2025-01-15 11:45 | disposition home or self-care (01) ==
PROVIDERS: Emergency Provider Emergency Medicine; PCP Registered Nurse
DX: N48.39 Other priapism (principal); N52.9 Male erectile dysfunction, unspecified; I10 Essential (primary) hypertension; Z79.82 Long term (current) use of aspirin; Z79.4 Long term (current) use of insulin; Z79.02 Long term (current) use of antithrombotics/antiplatelets; Z72.0 Tobacco use; E11.9 Type 2 diabetes mellitus without complications; E78.5 Hyperlipidemia, unspecified
CPT/HCPCS: 96374; 99284; J2371; J9999

== ENCOUNTER 2025-04-14 10:31 | Emergency (ER) | payer BC, SELFPAY ==
[2025-04-14 10:36] VITALS: BP 153/92; PULSE 113; RESP 17; TEMP 36.8; O2SAT 97; BMI 31.1
--- OUTSIDE RECORDS SUMMARY | 2025-04-14 10:39 | XMS_ITS | Clinical Summary ---
Author Organization [facility] Address [address] [place] [address] Phone Care Team Providers Care News Assistant Name Role Phone Unavailable Primary Care Provider Unavailabl e Allergies Active Allergy Reactions Criticality Noted Date Comments Penicillins Anaphylaxis High 01/25/2025 Medications atorvastatin (LIPITOR) 40 mg tablet Take 1 Tablet (40 mg) by mouth daily at bedtime. 30 Tablet 04/07/20 24 Active folic acid (FOLVITE) 1 mg tablet Take 1 Tablet (1 mg) by mouth daily. 30 Tablet 04/08/20 24 Active hydrALAZINE (APRESOLINE) 25 mg tabletIndicatio ns:Hold if blood pressure less than 120 mmHg systolic Take 1 Tablet (25 mg) by mouth every 8 hours. 90 Tablet 04/07/20 24 Active lisinopriL (PRINIVIL) 20 mg tablet Take 1 Tablet (20 mg) by mouth 2 times daily. 60 Tablet 04/07/20 24 Active metoprolol tartrate (LOPRESSOR) 25 mg tablet Take 1 Tablet (25 mg) by mouth 2 times daily. 60 Tablet 04/07/20 24 Active pantoprazole (PROTONIX) 40 mg Tablet, Delayed Release (E.C.) Take 1 Tablet (40 mg) by mouth daily before breakfast. 30 Tablet 04/08/20 24 Active spironolactone (ALDACTONE) 25 mg tablet Take 1 Tablet (25 mg) by mouth daily. 30 Tablet 04/08/20 24 Active thiamine mononitrate (VITAMIN B-1) 100 mg tablet Take 1 Tablet (100 mg) by mouth daily. 30 Tablet 04/08/20 24 Active clopidogreL (PLAVIX) 75 mg Tablet Take 1 Tablet (75 mg) by mouth daily. 3 Tablet 04/08/20 Active OTHER Insulin needles, syringes, alcohol pads and any other necessary equipment for home insulin administration. Qid, AC and HS. Thank you . 200 Each 04/09/20 Active citalopram (CeleXA) 20 mg tablet Take 20 mg by mouth daily at bedtime. Active SITagliptin phosphate (JANUVIA) 50 mg Tablet Take 50 mg by mouth daily with breakfast. Active insulin degludec (Tresiba FlexTouch U-100) 100 unit/mL pen syringe Inject by subcutaneous injection. 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 R dimitris/cerebellum 03/25/2003/30/2024 Overview (03/31/2024): R [facility] , PICA occlusion. Possible dissection. Dysphagia, post-stroke 03/30/2024 Impairment of balance and coordination Diplopia 03/30/2024 Dizziness 03/30/2024 Type 2 diabetes mellitus with neurologic complic ation 03/30/2024 Benign hypertension 03/30/2024 Cerebral infarction due to o cclusion of right vertebral artery 03/25/24 03/30/2024 Tobacco dependence 03/30/2024 Depression 03/30/2024 Numbness on left side 03/30/2024 Encounters Date Type Department Care Team Description 03/30/2025 External Device Data [facility] ABSTRACTION Provider, Abstract 03/29/2025 External Device Data [facility]STRACTION Provider, Abstract 03/08/2025 External Device Data [facility]STRACTION Provider, Abstract 03/03/2025 External Device Data [facility]STRACTION Provider, Abstract 03/03/2025 External Device Data [facility]STRACTION Provider, Abstract 03/02/2025 External Device Data [facility]STRACTION Provider, Abstract 03/01/2025 External Device Data [facility] ABSTRACTION Provider, Abstract 01/25/2025 8:00 AM CDT Office Visit [facility] Neurology - [address] [address] Lani Tee MD History of ischemic vertebrobasilar artery brainstem stroke (Primary Dx); Balance disorder; Vertigo from Last 3 Months Family History Medical History Relation Name Comments Diabetes Father Diabetes Mother Healthy Son Relation Name Status Comments Father Alive Mother Alive Son Alive Social History Tobacco Use Types Packs/Day Years Used Date Smoking Tobacco: Every Day Cigarettes Last attempted to quit: 03/17/2024 Smokeless Tobacco: Never Alcohol Use Standard Drinks/Week Comments Not Currently 0 (1 standard drink = 0.6 oz pur e alcohol) Feeling Safe Answer Date Recorded Are you in a relationship wi th someone who hurts you emotionally and/or physically? No 03/31/2024 Food Insecurity Answer Date Recorded Patient needs follow up regardin 02/20/2025 Transportation Needs Answer Date Record ed Patient needs follow up regardin 02/20/2025 Housing Stability Answer Date Recorded Social/Environmental Concerns No concerns Utility Needs Answer Date Recorded Patient needs follow up regardin 02/20/2025 Sex and Gender Information Value Date Recorded Sex Assigned at Not on file Legal Sex Male 3:12 PM CDT Gender Identity Not on file Sexual Orientation Not on file Last Filed Vital Signs Vital Sign Reading Time Taken Comments Blood Pressure 162/102 01/25/2025 7:49 AM CDT Pulse 106 01/25/2025 7:49 AM CDT Temperature 36.5 C (97.7 F) 04/07/2024 9:58 AM CDT Respiratory Rate 18 04/07/2024 5:07 AM CDT Oxygen Saturation 96% 01/25/2025 7:49 AM CDT Inhaled Oxygen Concentration - - Weight 112.5 kg (248 lb) 01/25/2025 7:49 AM CDT Height 185.4 cm (6' 1 ) 01/25/2025 7:49 AM CDT Body Mass Index 32.72 01/25/2025 7:49 AM CDT Plan of Treatment Health Maintenance Due Date Last Done Comments DIABETES ANNUAL FOOT EXAM 2002 DIABETES ANNUAL RETINAL EXAM 2002 DIABETES HBA1C Q 6 MONTHS 2002 DIABETES MICROALBUMIN ANNUAL SCREEN 2002 LDL CHOLESTEROL ANNUAL 2002 DTAP/TDAP/TD VACCINES (1 - Tdap) 2003 HEPATITIS B VACCINES (1 of 3 - 19+ 3-dose series) 2003 INFLUENZA VACCINE (#1) 2025 HPV VACCINES Aged Out No longer eligi ble based on patient's age to complete this topic Insurance [facility] Advance Directives For more information, please contact: [phone] Documents on File Type Date Recorded Patient Claims Examiner Expl anation Advance Directive POA 04/07/2024 5:58 AM A dvance Directive POA * Full Code (Latest Code Status on File) Date Activated Date Inactivated Comments 03/31/2024 4:04 PM 04/07/2024 7:06 PM
--- OUTSIDE RECORDS SUMMARY | 2025-04-14 10:39 | XMS_ITS | Data Portability ---
Author Organization [facility] Baltazar Bradford [facility] Address [address] [facility] [address] [place] [address] Care Team Providers Care Cinder Block Mason Name Role Phone SHAKA MCCRACKENKIRT Primary Care Provider Assessment Encounter Date Assessment Date Assessment LastModified by Organization Details LastModified Time 03/24/2024 03/24/2024 i offered and filled a 30 day supply of his chronic meds so he can see his pcp. he will call to schedule mario. he understands the risks of not treating his dm and htn and the reason he has recurrent yeast infection is specifically the uncontrolled sugar. he should be considered for circumcision and I recommended he discuss that with his pcp [email or web address] Not available 03/24/2024 17:34:48 Plan of Treatment Reminders Order Date Submit Date Provider Last Modified By Organization Details Last Modified Time Details Appointments None recorded. Lab None recorded. Referral None recorded. Procedures None recorded. Surgeries None recorded. Imaging None recorded. Medication Orders glipizide 5 mg tablet 2023 024 [facility], [address] [place] [address], [id number], 17:52:14 Januvia 50 mg tablet 2023 024 [facility], [address] [place] [address], [id number], 4 17:52:12 lisinopril 20 mg tablet 2023 024 [facility], [address] [place] [address], [id number], 4 18:27:22 fluconazole 150 mg tablet 2023 024 [facility], [address] [place] [address], [id number], 4 18:27:23 clotrimazol e 1 % topical cream [address], [address], 4 18:27:24 doxycycline hyclate 100 mg capsule 2023 024 [facility], [address] [place] [address], [id number], 4 08:53:52 prednisone 10 mg tablet 2023 024 [facility], [address] [place] [address], [id number], 4 08:53:50 Patient TargetsNo targets recorded. Patient Instructions Encounter Date Encounter Id Patient Instructions Last Modified By Organization Details Last Modified Time 03/12/2024 [id number] Increase fluids. If this doesn't get better needs to follow up with PCP [email or web address] Not available 03/12/2024 09:15:36 Reason for Referral None Reported. Problems Name Problem SNOMED Code Status Onset Date Resolution Date Notes Provider Name and Address Organization Details Recorded Time Fracture of vertebral column 58095254 Active 999 BROKEN BACK; Date: 1998; 004 3:48PM by HIMANSHU Parisi, , Office Visit; Promote d; acuity set as *; Not Available [facility] 3 03:08:11 Problem Notes None recorded. Procedures Surgical History Date Name Laterality Status Provider Name and Address Organization Details Recorded Time incision and drainage of upper extremity completed Cherise cavanaugh [facility] 03/24/2024 17:12:18 Imaging Results None recorded. Procedure Notes None recorded. Medical Equipment None Reported. Allergies Allergen ID Allergen Name Allergen Category Reaction Reaction Severity Criticality Documentation Date Start Date Code Code System Note Provider Name and Address Organization Details Recorded Time 90451 Product containin g penicilli n (product) medicatio n anaphylax is severe high 05/10/2023 27265 8001 SNOMED Cherise Barber [facility] 17:11:36 Medications Name Sig Start Date Stop Date Status Note LastModified by Organization Details LastModified Time prednison e 10 mg tablet Take 2 tabs daily for 4 days and 1 tab daily for 4 days 03/24 completed Not Available Not Available Not Available doxycycli ne hyclate 100 mg capsule Take 1 capsule twice a day by oral route for 10 days. 03/24 completed Not Available Not Available Not Available fluconazo le 150 mg tablet take one tablet once WEEKLY (every 7 days) for 3 doses 2023 active Not Available Not Available Not Avai lable lisinopri l 20 mg tablet Take 1 tablet every day by oral route for 30 days. 2023 active Not Available Not Available Not Avai lable ondansetr on HCl 4 mg tablet TAKE 1 TABLET BY MOUTH EVERY 4 HOURS NEEDED FOR NAUSEA AND VOMITING 03/12 completed Not Available Not Available Not Available sulfameth oxazole 800 mg-trimet hoprim 160 mg tablet two times daily 03/12 completed Recorded 06/24/20 22 1:39PM by Russ Blanco MD, Office Visit; Refill Quantity : 0; Not Available Not Available Not Available ketorolac 10 mg tablet TAKE 1 TABLET BY MOUTH THREE TIMES DAILY NEEDED FOR PAIN 03/12 completed Not Available Not Available Not Available gabapenti n 100 mg capsule take 1 to 2 capsules BY MOUTH AT BEDTIME 03/24 completed Not Available Not Available Not Available oxycodone -acetamin ophen 7.5 mg-325 mg tablet TAKE 1 TABLET BY MOUTH EVERY 6 HOURS NEEDED FOR PAIN 03/12 completed Not Available Not Available Not Available ondansetr on 4 mg disintegr ating tablet DISSOLVE ONE TABLET BY MOUTH EVERY DAY NEEDED FOR FOR NAUSEA AND VOMITING 03/12 completed Not Available Not Available Not Available clotrimaz ole 1 % topical cream APPLY TO THE AFFECTED AND SURROUND ING AREAS OF SKIN BY TOPICAL ROUTE 2 TIMES PER DAY IN THE MORNING AND EVENING 2023 active Not Available Not Available Not Avai lable glipizide 5 mg tablet Take by oral route for 30 days. active Not Available Not Available No t Available Januvia 50 mg tablet Take by oral route for 30 days. active Not Available Not Available No t Available Victoza 2-Sha 0.6 mg/0.1 mL (18 mg/3 mL) subcutane ous pen injector inject 0.6mg (0.1ml) SUBCUTAN EOUSLY EVERY DAY 03/12 completed Not Available Not Available Not Available Vitals Date Recorded Body weight Body temperature Oxygen saturation Oxygen saturation in Arterial blood by Pulse oximetry Heart rate Systolic And Diastolic Provider Name and Address Organization Details Last Updated DateTime 4 996603. 47 g 99.3 [degF] 98 % 98 % 93 /min 180/118 mm[Hg] ISABEL HAQ [facility] 4 08:48:05 Date Recorded Body height Body mass index (BMI) Body weight Oxygen saturation Oxygen saturation in Arterial blood by Pulse oximetry Heart rate Respiratory rate Body temperature Systolic And Diastolic Provider Name and Address Organization Details Last Updated DateTime 4 185.42 cm 29.4 kg/m2 940239. 82 g 99 % 99 % 99 /min 17 /min 97.9 [degF] 184/120 mm[Hg] Cherise Blandon [facility] 4 17:15:16 Social History Question Answer Notes LastModified by [employer] Details LastModified Time Tobacco Smoking Status Current Every Day Smoker Cherise lubin [facility] 03/24/2024 17:12:05 What Was The Date Of Your Most Recent Tobacco Screening? 03/24/2024 Information not available 03/24/2024 Sex: Unknown Functional Status Question Answer Note LastModified by Organizat ion Details LastModified Time Do you use any illicit or recreational drugs? No Information not available 03/24/2024 What is your level of alcohol consumption? Occasional Information not available 03/24/2024 Mental Status None recorded. Family History Nothing Reported. Medical History Condition Response Coronary Artery Disease N Other N Gout N Kidney Stones N Blood Diseases N Hyperthyroidism N Breast Cancer N Blood Transfusion N Depression N COPD N Lung Disease N Hypothyroidism N Developmental or Behavioral Disorders N Defects or Inherited Disease N Breast Problem N Difficulty Swallowing N Anesthesia Complications N Meniere's disease N Anxiety Disorder N Muscle, Joint, or Bone Problems N Vision or Eye Problems N Arthritis N Polyps N Infertility N Cancer N Varicosities N Stroke N Endometriosis N Bladder or Kidney Problems N High Cholesterol N Liver Disease N Headaches N Fibromyalgia N Kidney Disease N Allergies/Hayfever N Heart Problems N Ear or Hearing Problems N Hospitalizations N Thyroid Problems N GI Problems N ADD/ADHD N Skin Problems N Eating Disorder N Anemia N Constipation N Mental Illness N Ovarian Cancer N Diabetes N Bedwetting N Seizures/Epilepsy N Tuberculosis N Eczema N Diverticulitis N Abuse/Domestic Violence N Asthma N Reflux/GERD N Hepatitis N Heart Disease N Pulmonary Embolism N Pre-Eclampsia N Hypertension N Chronic Ear Infections N Osteoporosis N Chicken Pox N Autism Spectrum Disorder (ASD) N Thrombophilias N Past Encounters Encounter ID Performer Location Encounter Start Date Encounter Closed Date Diagnosis/Indication Diagnosis SNOMED-CT Code Diagnosis ICD10 Code Diagnosis Note [id number] NOAH SHELDON APRN [facility] ([facility]) [address] [place] [address] 03/12/2024 08:42:17 03/12/2024 12:54:11 Pain of ear 007391644 H92.09 Acute left otitis media 834033042 H66.92 [id number] Candido Estrada MD [facility] ([facility]) [address] [place] [address] 03/24/2024 17:02:58 03/24/2024 17:36:54 Uncontrolled type 2 diabetes mellitus 687863465 E11.65 f/u with pcp mario Candidiasis of skin 4988 3006 B37.2 Essential hypertension 66000450 I10 Candidal balanitis 16179 007 B37.42 Health Concerns Section Related Observation LastModified by Organization Detai ls LastModified Time None Recorded Concern Status LastModified by Organization Details LastModified Time None Recorded Advance Directives Directive None Recorded Payers Insurance Date Sequence Insurance Name Policy Number Policy Mistry Covered Member ID Mistry Member ID Guarantor Name 03/24/2024 1 [place] [id number] 3 Jarred Dangelo [id number] Jarred Dangelo Notes Date Note Type Note Provider Name and Address Organization Details Recorded Time 03/12/2024 text/html Ear Pain Brief HPIReported bypatient.Location :left Severity:fever Associated Symptoms:no vertigo; no discharge from ear; no nasal congestion;jaw pain;tinnitus;muff led hearingNotes:Flaca martinez muffled hearing and pain. States having pain behind jaw bone as well. NOAH SHELDON APRN [address] [place], [address], [facility], LJohnLYonis 03/14/2024 15:48:49 03/24/2024 text/html Pt reports flaca martinez a yeast infection again. Symptoms started 3 to 4 days ago. Last time, he was given 2 different creams and this helped. Candido Estrada MD [address] [place], [address], [facility], LJohnLNoe. 03/24/2024 17:35:09
--- NOTE | 2025-04-14 11:20 | XR_ITS ---
WS: [id number] XR shoulder RT min 2V* 20238 REASON FOR EXAM: Pain FINDINGS: No fracture or focal bone lesion. Acromioclavicular joint space is mildly narrowed with mild marginal sclerosis and osteophytosis. Minimal narrowing of the glenohumeral joint space with moderate subchondral sclerosis of the glenoid. No significant abnormality of the humeral head. XR/XR shoulder RT min 2V* 35800 IMPRESSION: Mild osteoarthritis of the acromioclavicular joint. Mild osteoarthritis of the glenohumeral joint. No significant rotator cuff tendon arthropathy.
--- NOTE | 2025-04-14 11:54 | ED_ITS ---
HPI - Extremity Problem General: Chief complaint: Extremity Injury, Upper Stated complaint: R shoulder pain Time Seen by Provider: 04/14/25 11:20 History of Present Illness: 39-year-old male presents emergency room complaining of right shoulder pain he was working in some rafters about 5 days ago he went to slip and fall root grabbed part of the rafter with his right hand kept himself from falling but in the process caught all of his weight on an outstretched right arm has pain in the shoulder. Pain is persistent especially when he tries to lift his arm extended his arm or work above shoulder level. No other injury no previous injury to that shoulder Associated symptoms: Deny chest pain, fever(s) or rash Related Data Home Medications ?Medication ?Instructions ?Recorded ?Confirmed docusate sodium 100 mg capsule 100 mg PO DAILY PRN 12/14/24 Previous Rx's ?Medication ?Instructions ?Recorded flash glucose scanning reader #1 ea 04/19/24 (FreeStyle Ly 2 Francisco) flash glucose sensor (FreeStyle #2 ea 04/19/24 Ly 2 Sensor kit) aspirin 81 mg tablet,delayed See Rx Instructions .Rout e 07/07/24 release .COMPLEX #90 tabs sildenafil 50 mg tablet (Viagra) 50 mg PO DAILY PRN se xual activity 07/15/24 30 days #7 tabs ergocalciferol (vitamin D2) 1,250 See Rx Instructions .Route 07/21/24 mcg (50,000 unit) capsule (Vitamin .COMPLEX #12 caps D2) cetirizine 10 mg capsule (Zyrtec) 10 mg PO DAILY PRN a llergy 08/04/24 symptoms 30 days #30 caps insulin lispro 100 unit/mL See Rx Instructions SUBCUT 08/26/24 subcutaneous pen .COMPLEX #15 mL citalopram 20 mg tablet 20 mg PO DAILY 90 days #90 t abs 09/14/24 blood-glucose sensor (FreeStyle #2 ea 09/15/24 Ly 3 Sensor device) clopidogrel 75 mg tablet See Rx Instructions .Route 0 12/02/24 .COMPLEX #90 tabs thiamine mononitrate (vit B1) 100 See Rx Instructions .Route 12/02/24 mg tablet (Vitamin B-1 .COMPLEX #90 tabs (mononitrate)) atorvastatin 80 mg tablet See Rx Instructions .Route 0 12/14/24 .COMPLEX #90 tabs hydralazine 25 mg tablet 25 mg PO BID 90 days #180 ta bs 12/14/24 lisinopril 20 mg tablet See Rx Instructions .Route 0 12/14/24 .COMPLEX #180 tabs metoprolol tartrate 25 mg tablet See Rx Instructions . Route 12/14/24 .COMPLEX #180 tabs spironolactone 25 mg tablet 25 mg PO DAILY 90 days #90 tabs 12/14/24 folic acid 1 mg tablet See Rx Instructions .Route 0 01/04/25 .COMPLEX #90 tabs insulin syringe-needle U-100 1 mL #100 ea 01/04/25 31 gauge x 02/25 pantoprazole 40 mg tablet,delayed See Rx Instructions .Route 01/04/25 release .COMPLEX #90 tabs sitagliptin phosphate 100 mg tablet 100 mg PO DAILY 90 days #90 tabs 03/17/25 insulin glargine 100 unit/mL See Rx Instructions .Rout e 03/18/25 subcutaneous solution (Lantus .COMPLEX #36 mL U-100 Insulin) acyclovir 800 mg tablet 800 mg PO BID 7 days #14 tab s 03/24/25 diclofenac sodium 75 mg 75 mg PO Q12H PRN pain #20 t abs 04/14/25 tablet,delayed release Allergies Allergy/AdvReac Type Severity Reaction Status Date / Time No Known Allergies Allergy Verified 01/15/25 08:44 Review of Systems Const: Denies: fever(s) or chills Card: Denies: chest pain Resp: Denies: dyspnea GI: Denies: abdominal pain : Denies: dysuria, urinary frequency or urinary urgency Musc: Reports: joint pain; Denies: neck pain or back pain Skin/Breast: Denies: rash PFSH ED PFSH: Medical History Hypertension Occlusion of right vertebral artery Right pontine stroke Diabetes mellitus type 2 in obese Hypertensive urgency Uncontrolled diabetes mellitus Hx of medication noncompliance Hyperglycemia due to type 2 diabetes mellitus Alcoholism in recovery Non compliance w medication regimen Hyperlipidemia associated with type 2 diabetes mellitus Anxiety disorder Polysubstance abuse Heatstroke Insomnia disorder Depression Surgical History History of incision and drainage Left forearm 2018 Hx of cardiac cath 02/2014 Family History Father Diabetes Mother Diabetes Social History Smoking and tobacco/nicotine status: current every day tobacco/nicotine user Alcohol intake: never Substance/Drug Use: never Adopted: No Caregiver/support person: No Lives independently: No service: No Current occupational status: employed Sexually active: Yes Do you think of yourself as: Straight/Heterosexual Current gender identity: Male Physical Exam Const: GENERAL APPEARANCE: cooperative ORIENTATION/CONSCIOUSNESS: Yes awake, Yes oriented to person, Yes oriented to place and Yes oriented to time HENMT: COMMON NORMALS: normocephalic, atraumatic and hearing grossly normal bilaterally HEAD & SCALP: normocephalic and atraumatic Resp: COMMON NORMALS: normal respiratory effort, No retractions, No use of accessory muscles and clear to auscultation bilaterally AUSCULTATION: clear to auscultation bilaterally Cardio: COMMON NORMALS: regular rate, regular rhythm and No murmurs present (Cardio) RATE: regular rate RHYTHM: regular rhythm GI: COMMON NORMALS: Soft to palpation and No hepatosplenomegaly present AUSCULTATION: Yes normoactive bowel sounds PALPATION: Yes Soft to palpation, No Tenderness to palpation present (GI), No Guarding due to palpation present (GI) and Yes No hepatosplenomegaly present Extremity: COMMON NORMALS: normal to inspection, capillary refill normal, no clubbing, cyanosis or edema, no calf tenderness and no pedal edema OTHER: Examination of the right shoulder pain with abduction flexion extension pain with both internal/external rotation. Impingement sign equivocal Neuro: SENSORIUM/ORIENTATION: Yes oriented to person, Yes oriented to place and Yes oriented to time Skin: COMMON NORMALS: no rashes or lesions noted GENERAL SKIN EXAM: no rashes or lesions noted Course Vital Signs: Vital signs: Vital Signs Temperature 98.2 F 04/14/25 10:36 Pulse Rate 113 H 04/14/25 10:36 Respiratory Rate 17 04/14/25 10:36 Blood Pressure 153/92 04/14/25 10:36 Pulse Oximetry 97 04/14/25 10:36 Oxygen Delivery Me thod Room Air 04/14/25 10:36 MDM - Extremity (Nontraumatic) Medical Decision Making X-ray does not show anything acute I suspect based on his history and exam that he sprained his AC joint although there is not a significant separation on the x-ray at this time we will put him in a sling and referred to orthopedics Medical Records I reviewed the patient's medical records. Lab Data I reviewed the patient's lab results. Radiology Impressions Shoulder X-Ray 04/14/25 11:20 IMPRESSION: Mild osteoarthritis of the acromioclavicular joint. Mild osteoarthritis of the glenohumeral joint. No significant rotator cuff tendon arthropathy. All radiology interpretation(s) finalized by discharge Discharge Plan Discharge Patient Disposition: Home Clinical Impression: Acromioclavicular (joint) (ligament) sprain Condition: Stable Prescriptions: New diclofenac sodium 75 mg tablet,delayed release (DR/EC) 75 mg PO Q12H PRN (Reason: pain) Qty: 20 0RF No Action docusate sodium 100 mg capsule 100 mg PO DAILY PRN sildenafil [Viagra] 50 mg tablet 50 mg PO DAILY PRN (Reason: sexual activity) 30 Days Qty: 7 0RF Rx Instructions: administer 30 minutes to 4 hours before activity citalopram 20 mg tablet 20 mg PO DAILY 90 Days Qty: 90 1RF (DME) FreeStyle Ly 3 Sensor Device See Rx Instructions .MEDSUPPLY Qty: 2 12RF Rx Instructions: Change every 14 days; Use as directed to check blood sugar (DME) FreeStyle Ly 2 Sensor Kit See Rx Instructions .MEDSUPPLY Qty: 2 11RF Rx Instructions: Change every 14 days; Use as directed to check blood sugar (DME) FreeStyle Ly 2 Francisco Misc See Rx Instructions .MEDSUPPLY Qty: 1 0RF Rx Instructions: Use as directed to check blood sugar atorvastatin 80 mg tablet See Rx Instructions .ROUTE .COMPLEX Qty: 90 4RF Dose Instruction: TAKE 1 TABLET BY MOUTH EVERY DAY Rx Instructions: TAKE 1 TABLET BY MOUTH EVERY DAY hydralazine 25 mg tablet 25 mg PO BID 90 Days Qty: 180 1RF lisinopril 20 mg tablet See Rx Instructions .ROUTE .COMPLEX Qty: 180 1RF Dose Instruction: TAKE 1 TABLET BY MOUTH TWICE DAILY Rx Instructions: TAKE 1 TABLET BY MOUTH TWICE DAILY metoprolol tartrate 25 mg tablet See Rx Instructions .ROUTE .COMPLEX Qty: 180 1RF Dose Instruction: TAKE 1 TABLET BY MOUTH TWICE DAILY Rx Instructions: TAKE 1 TABLET BY MOUTH TWICE DAILY spironolactone 25 mg tablet 25 mg PO DAILY 90 Days Qty: 90 1RF aspirin 81 mg tablet,delayed release (DR/EC) See Rx Instructions .ROUTE .COMPLEX Qty: 90 0RF Dose Instruction: TAKE 1 TABLET BY MOUTH EVERY DAY Rx Instructions: TAKE 1 TABLET BY MOUTH EVERY DAY ergocalciferol (vitamin D2) [Vitamin D2] 1,250 mcg (50,000 unit) capsule See Rx Instructions .ROUTE .COMPLEX Qty: 12 0RF Dose Instruction: take 1 capsule BY MOUTH every week Rx Instructions: take 1 capsule BY MOUTH every week Zyrtec 10 mg capsule 10 mg PO DAILY PRN (Reason: allergy symptoms) 30 Days Qty: 30 0RF insulin lispro 100 unit/mL insulin pen See Rx Instructions SUBCUT .COMPLEX Qty: 15 0RF Rx Instructions: 6 units in am and pm plus sliding scale if needed subcutaneously daily thiamine mononitrate (vit B1) [Vitamin B-1 (mononitrate)] 100 mg tablet See Rx Instructions .ROUTE .COMPLEX Qty: 90 0RF Dose Instruction: TAKE 1 TABLET BY MOUTH EVERY DAY Rx Instructions: TAKE 1 TABLET BY MOUTH EVERY DAY clopidogrel 75 mg tablet See Rx Instructions .ROUTE .COMPLEX Qty: 90 0RF Dose Instruction: TAKE 1 TABLET BY MOUTH EVERY DAY Rx Instructions: TAKE 1 TABLET BY MOUTH EVERY DAY folic acid 1 mg tablet See Rx Instructions .ROUTE .COMPLEX Qty: 90 0RF Dose Instruction: TAKE 1 TABLET BY MOUTH EVERY DAY Rx Instructions: TAKE 1 TABLET BY MOUTH EVERY DAY pantoprazole 40 mg tablet,delayed release (DR/EC) See Rx Instructions .ROUTE .COMPLEX Qty: 90 0RF Dose Instruction: TAKE 1 TABLET BY MOUTH EVERY DAY Rx Instructions: TAKE 1 TABLET BY MOUTH EVERY DAY (DME) insulin syringe-needle U-100 1 mL 31 gauge x 5/16 syringe See Rx Instructions .Route Qty: 100 0RF Rx Instructions: As directed with lantus at bedtime sitagliptin phosphate 100 mg tablet 100 mg PO DAILY 90 Days Qty: 90 0RF insulin glargine [Lantus U-100 Insulin] 100 unit/mL solution See Rx Instructions .ROUTE .COMPLEX Qty: 36 0RF Dose Instruction: INJECT 60 UNITS (0.6ML) SUBCUTANEOUSLY TWICE DAILY Rx Instructions: INJECT 60 UNITS (0.6ML) SUBCUTANEOUSLY TWICE DAILY acyclovir 800 mg tablet 800 mg PO BID 7 Days Qty: 14 1RF Discharge Orders: Discharge ED (Routine); Ordered 04/14/25 Ordered By: Flako Oneill Referrals: Diya Payne FNP [Primary Care Provider, Family Practice] Discharge Diet: Usual diet Discharge Activity: Resume usual activity Patient Instructions: Opioid Safety, Pain Management, Patient Portal & Jammie Instructions Activity Restrictions/Additional Instructions: Thank you for choosing [facility] [employer] [facility] for your healthcare needs today. It is very important that you follow up as instructed or that you return to the Emergency Department should you have concerns or if your condition changes or worsens in any way. You are seen in the emergency room after an injury to your right shoulder. X- rays did not show any acute fractures on exam suspect you do have a AC joint injury possibly rotator cuff injury. At this time due to the acute pain is difficult to assess well on a bedside physical exam. Recommend avoid working at shoulder height or above use sling as needed for comfort. You are given anti- inflammatories to use for pain. You may also ice as needed for comfort. Make arrangements for her to follow-up with orthopedist at the clinic. Print Language: Malagasy Coding Level of Care Code ED Political Science Chair for Skye Adams
--- NOTE | 2025-04-14 12:30 | DCPLANNER ---
messaged ortho for er f/u
== END 2025-04-14 12:43 | disposition home or self-care (01) ==
PROVIDERS: Emergency Provider Family Medicine; PCP Registered Nurse
DX: S43.51XA Sprain of right acromioclavicular joint, initial encounter (principal); Z79.82 Long term (current) use of aspirin; Z79.4 Long term (current) use of insulin; Z79.02 Long term (current) use of antithrombotics/antiplatelets; Z72.0 Tobacco use; E11.9 Type 2 diabetes mellitus without complications; I10 Essential (primary) hypertension; E78.5 Hyperlipidemia, unspecified; W01.0XXA Fall on same level from slipping, tripping and stumbling without subsequent striking against object, initial encounter
CPT/HCPCS: 73030; 99283

== ENCOUNTER 2025-05-14 08:32 | Emergency (ER) | payer BC, SELFPAY ==
[2025-05-14 08:35] VITALS: BP 179/108; PULSE 110; RESP 22; TEMP 37.1; O2SAT 100; BMI 29.0
--- NOTE | 2025-05-14 08:37 | ECG_ITS ---
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: : 1985 Requested By: Matthew Meng Order Number: [id number] Reading MD: MARGUERITE NARVAEZ Measurements Intervals Vale Rate: 114 P: 69 CO: 128 QRS: 72 QRSD: 86 T: 88 QT: 321 QTc: 443 Interpretive Statements SINUS TACHYCARDIA POSSIBLE LEFT ATRIAL ENLARGEMENT [-0.1mV P-WAVE IN V1/V2] NONSPECIFIC T-WAVE ABNORMALITY ABNORMAL RHYTHM ECG Compared to ECG 03/26/2024 23:50:24 Ectopic atrial rhythm no longer present Possible ischemia no longer present T-wave abnormality still present Electronically Signed On 05-16-2025 13:58:14 CDT by MARGUERITE NARVAEZ [email or web address]
--- NOTE | 2025-05-14 08:37 | XRR_ITS ---
PROCEDURE INFORMATION: Exam: XR Chest Exam date and time: 05/14/2025 8:45 AM Age: 39 years old Clinical indication: Pain; Chest pressure; Additional info: Cp TECHNIQUE: Imaging protocol: Radiologic exam of the chest. Views: 1 view. COMPARISON: CR XR chest 1V portable [id number] 03/25/2024 12:26 PM FINDINGS: Lungs: There may be subtle patchy infiltrate or atelectasis involving the right lower lung. Lungs are otherwise clear. No lobar consolidation is appreciated. Pleural spaces: Unremarkable. No pleural effusion. No pneumothorax. Heart/Mediastinum: Unremarkable. No cardiomegaly. Bones/joints: Unremarkable. XR/XR chest 1V portable [id number] IMPRESSION: 1. Possible subtle patchy infiltrate or atelectasis involving the right lower lung.
--- OUTSIDE RECORDS SUMMARY | 2025-05-14 08:43 | XMS_ITS | Clinical Summary ---
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 Name Role Phone Unavailable Primary Care Provider [...] Encounters Date Type Department Care Team Description 05/03/2025 External Device Data ST[facility] ABSTRACTION Provider, Abstract 04/27/2025 External Device Data [facility] ABSTRACTION Provider, Abstract 04/27/2025 External Device Data [facility] ABSTRACTION Provider, Abstract 04/27/2025 External Device Data [facility] ABSTRACTION Provider, Abstract 04/26/2025 External Device Data [facility] ABSTRACTION Provider, Abstract 03/30/2025 External Device Data [facility] ABSTRACTION Provider, Abstract 03/29/2025 External Device Data [facility] ABSTRACTION Provider, Abstract 03/08/2025 External Device Data [facility] ABSTRACTION Provider, Abstract 03/03/2025 External Device Data [facility] ABSTRACTION Provider, Abstract 03/03/2025 External Device Data [facility] ABSTRACTION Provider, Abstract 03/02/2025 External Device Data [facility] ABSTRACTION Provider, Abstract 03/01/2025 External Device Data ST[facility] ABSTRACTION Provider, Abstract from Last 3 Months Family History Medical [...] drink = 0.6 oz pur e alcohol) Sex and Gender Information Value Date Recorded [...] Health Maintenance Due Date Last Done Comments HPV VACCINES (1 - Male 3-dose series) 1999 DIABETES ANNUAL FOOT EXAM 2002 DIABETES ANNUAL RETINAL EXAM 2002 DIABETES HBA1C Q 6 MONTHS 2002 DIABETES MICROALBUMIN ANNUAL SCREEN 2002 LDL CHOLESTEROL ANNUAL 2002 DTAP/TDAP/TD VACCINES (1 - Tdap) 2003 HEPATITIS B VACCINES (1 of 3 - 19+ 3-dose series) 10/2002 INFLUENZA VACCINE (#1) 2025 Insurance BLUE PREFERRED Advance Directives For more information, please contact: [phone] Documents on File Type Date Recorded 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
--- NOTE | 2025-05-14 08:48 | ED_ITS ---
HPI - Chest Pain 2 General: Chief Complaint: Chest Pain Stated Complaint: chest pains Time Seen by Provider: 05/14/25 08:37 Source: patient Mode of arrival: ambulatory Limitations: no limitations History of Present Illness: 39-year-old male states he woke up this morning with severe chest pain and some epigastric abdominal pain. States pains been sharp in nature rates it a 9 out of 10 does have a history of meth abuse states that he last used 4 days ago he denies any cough or fever. He denies any vomiting or diarrhea. Associated symptoms: Reports dyspnea; Deny abdominal pain, fever(s), nausea or vomiting Related Data Home Medications ?Medication ?Instructions ?Recorded ?Confirmed docusate sodium 100 mg capsule 100 mg PO DAILY PRN 04/26/25 Previous Rx's ?Medication ?Instructions ?Recorded flash glucose scanning reader #1 ea 04/19/24 (FreeStyle Ly 2 [place]) flash glucose sensor (FreeStyle #2 ea 04/19/24 Ly 2 Sensor kit) aspirin 81 mg tablet,delayed See Rx Instructions .Rout e 07/07/24 release .COMPLEX #90 tabs sildenafil 50 mg tablet (Viagra) 50 mg PO DAILY PRN se xual activity 07/15/24 30 days #7 tabs ergocalciferol (vitamin D2) 1,250 See Rx Instructions .Route 07/21/24 mcg (50,000 unit) capsule (Vitamin .COMPLEX #12 caps D2) cetirizine 10 mg capsule (Zyrtec) 10 mg PO DAILY PRN a llergy 08/04/24 symptoms 30 days #30 caps insulin lispro 100 unit/mL See Rx Instructions SUBCUT 08/26/24 subcutaneous pen .COMPLEX #15 mL citalopram 20 mg tablet 20 mg PO DAILY 90 days #90 t abs 09/14/24 blood-glucose sensor (FreeStyle #2 ea 09/15/24 Ly 3 Sensor device) clopidogrel 75 mg tablet See Rx Instructions .Route 0 12/02/24 .COMPLEX #90 tabs thiamine mononitrate (vit B1) 100 See Rx Instructions .Route 12/02/24 mg tablet (Vitamin B-1 .COMPLEX #90 tabs (mononitrate)) atorvastatin 80 mg tablet See Rx Instructions .Route 0 12/14/24 .COMPLEX #90 tabs hydralazine 25 mg tablet 25 mg PO BID 90 days #180 ta bs 12/14/24 lisinopril 20 mg tablet See Rx Instructions .Route 0 12/14/24 .COMPLEX #180 tabs metoprolol tartrate 25 mg tablet See Rx Instructions . Route 12/14/24 .COMPLEX #180 tabs spironolactone 25 mg tablet 25 mg PO DAILY 90 days #90 tabs 12/14/24 folic acid 1 mg tablet See Rx Instructions .Route 0 01/04/25 .COMPLEX #90 tabs pantoprazole 40 mg tablet,delayed See Rx Instructions .Route 01/04/25 release .COMPLEX #90 tabs sitagliptin phosphate 100 mg tablet 100 mg PO DAILY 90 days #90 tabs 03/17/25 insulin glargine 100 unit/mL See Rx Instructions .Rout e 03/18/25 subcutaneous solution (Lantus .COMPLEX #36 mL U-100 Insulin) acyclovir 800 mg tablet 800 mg PO BID 7 days #14 tab s 03/24/25 diclofenac sodium 75 mg 75 mg PO Q12H PRN pain #20 t abs 04/14/25 tablet,delayed release insulin syringe-needle U-100 1 mL #100 ea 05/03/25 31 gauge x 5/16 Allergies Allergy/AdvReac Type Severity Reaction Status Date / Time No Known Allergies Allergy Verified 05/14/25 08:51 Review of Systems 2 Const: Denies: fever(s), chills, body aches or change in appetite ENMT: Denies: throat pain or dental pain Card: Reports: chest pain Resp: Reports: dyspnea GI: Denies: abdominal pain, nausea, vomiting or diarrhea : Denies: dysuria Musc: Denies: neck pain or back pain Skin/Breast: Denies: rash Neuro: Denies: headache(s) PFSH ED 2 PFSH: Medical History Hypertension Occlusion of right vertebral artery Right pontine stroke Diabetes mellitus type 2 in obese Hypertensive urgency Uncontrolled diabetes mellitus Hx of medication noncompliance Hyperglycemia due to type 2 diabetes mellitus Alcoholism in recovery Non compliance w medication regimen Hyperlipidemia associated with type 2 diabetes mellitus Anxiety disorder Polysubstance abuse Heatstroke Insomnia disorder Depression Surgical History History of incision and drainage Left forearm 2018 Hx of cardiac cath 02/2014 Family History Father Diabetes Mother Diabetes Social History Smoking and tobacco/nicotine status: current every day tobacco/nicotine user Alcohol intake: never Substance/Drug Use: never Adopted: No Caregiver/support person: No Lives independently: No service: No Current occupational status: employed Sexually active: Yes Do you think of yourself as: Straight/Heterosexual Current gender identity: Male Physical Exam 2 Const: COMMON NORMALS: no acute distress, patient oriented x3 and healthy appearing HENMT: COMMON NORMALS: normocephalic and atraumatic HEAD & SCALP: n ormocephalic and atraumatic Eye: COMMON NORMALS: conjunctivae normal CONJUNCTIVA: Yes conjunctivae normal Neck/C-Spine: COMMON NORMALS: full ROM and supple Chest: COMMONS NORMALS: normal inspection of the chest Resp: COMMON NORMALS: normal respiratory effort, No retractions, No use of accessory muscles and clear to auscultation bilaterally AUSCULTATION: clear to auscultation bilaterally Cardio: COMMON NORMALS: regular rhythm and No murmurs present (Cardio) R ATE: tachycardic RHYTHM: regular rhythm GI: COMMON NORMALS: Normal to inspection, nondistended, normoactive bowel sounds present, Soft to palpation, non-tender and no masses PALPATION: Yes Soft to palpation Extremity: COMMON NORMALS: normal to inspection and full ROM Neuro: COMMON NORMALS: patient oriented x3, moves all extremities and no focal motor deficits Psych: COMMON NORMALS: mental status grossly normal, Normal thought process present and cooperative THOUGHT PROCESS: Normal thought process present Skin: COMMON NORMALS: no rashes or lesions noted and no wounds GENERAL SKIN EXAM: no rashes or lesions noted Course 2 Vital Signs: Vital signs: Vital Signs Temperature 98.7 F 05/14/25 08:35 Pulse Rate 81 05/14/25 10:51 Respiratory Rate 16 05/14/25 10:51 Blood Pressure 177/101 05/14/25 10:51 Pulse Oximetry 96 05/14/25 10:51 Oxygen Delivery Me thod Room Air 05/14/25 10:51 MDM - Chest Pain Medical Decision Making Patient presents for chest pain is atypical in nature initial repeat troponins are negative no signs of dissection or pulm emboli on CT scan patient stable for discharge follow-up PCP return if worsening. Medical Records I reviewed the patient's medical records. Lab Data I reviewed the patient's lab results. 05/14/25 08:42 05/14/25 08:42 Radiology Impressions Chest X-Ray 05/14/25 08:37 IMPRESSION: 1. Possible subtle patchy infiltrate or atelectasis involving the right lower lung. Chest CTA 05/14/25 09:19 IMPRESSION: 1. No acute findings. Laboratory Results WBC 8.17 10^3/uL (3.29-11.43) 05/14/25 08:42 RBC 5.54 10^6/uL (3.85-5.65) 05/14/25 08:42 Hgb 16.20 g/dL (11.27-16.99) 05/14/25 08:42 Hct 46.2 % (37-53) 05/14/25 08:42 MCV 83.4 fl (82-101) 05/14/25 08:42 MCH 29.2 pg (27-33) 05/14/25 08:42 MCHC 35.1 g/dL (30-55) 05/14/25 08:42 RDW 13.0 % (12.1-15.1) 05/14/25 08:42 Plt Count 266 10^3/cmm (157-399) 05/14/25 08:42 MPV 9.5 fL (7.4-10.4) 05/14/25 08:42 Neut % (Auto) 56.9 % 05/14/25 08:42 Lymph % (Auto) 33.5 % 05/14/25 08:42 Miller % (Auto) 4.4 % 05/14/25 08:42 Eos % (Auto) 2.2 % 05/14/25 08:42 Baso % (Auto) 1.0 % 05/14/25 08:42 Neut # (Auto) 4.65 10^3/uL (1.8-7.7) 05/14/25 08:42 Lymph # (Auto) 2.7 10^3/uL (0.8-4.8) 05/14/25 08:42 Miller # (Auto) 0.4 10^3/uL (0.2-0.9) 05/14/25 08:42 Eos # (Auto) 0.2 10^3/uL (0.0-0.8) 05/14/25 08:42 Baso # (Auto) 0.1 10^3/uL (0.0-0.1) 05/14/25 08:42 Nucleated RBC % (auto) 0 % 05/14/25 08:42 Nucleated RBCs # 0.0 /100WBC 05/14/25 08:42 D-Dimer 0.70 ug/mLFEU (0-0.59) H 05/14/25 07:42 Sodium 136 mmol/L (136-145) 05/14/25 08:42 Potassium 3.7 mmol/L (3.5-5.1) 05/14/25 08:42 Chloride 100 mmol/L (98-107) 05/14/25 08:42 Carbon Dioxide 22 mmol/L (22-29) 05/14/25 08:42 Anion Gap 17.7 (5-19) 05/14/25 08:42 BUN 13 mg/dL (6-20) 05/14/25 08:42 Creatinine 0.6 mg/dL (0.7-1.2) L 05/14/25 08:42 GFR Calculation 149.2 mL/min (90-130) H 05/14/25 08:42 Glucose 249 mg/dL (65-115) H 05/14/25 08:42 POC Glucose 103 mg/dL (70-110) 05/14/25 10:45 Calculated Osmolality 290 mOsm/kg (285-295) 05/14/25 08:42 Calcium 8.8 mg/dL (8.5-10.5) 05/14/25 08:42 Total Bilirubin 0.2 mg/dL (0.15-1.2) 05/14/25 08:42 AST 5 U/L (0-40) 05/14/25 08:42 ALT < 5 U/L (0-41) 05/14/25 08:42 Alkaline Phosphatase 123 U/L (40-130) 05/14/25 08:42 Troponin T Baseline 12 ng/L (0-15) 05/14/25 08:42 Troponin T 120 Minute 9.65 ng/L (0-15) 05/14/25 10:41 Delta Troponin T -2.35 ABS# (0-10) L 05/14/25 10:41 Total Protein 6.4 g/dL (6.6-8.7) L 05/14/25 08:42 Albumin 3.7 g/dL (3.5-5.2) 05/14/25 08:42 Globulin 2.7 g/dL (1.3-4.6) 05/14/25 08:42 Lipase 45 U/L (13-60) 05/14/25 08:42 All radiology interpretation(s) finalized by discharge Discharge Plan Discharge Patient Disposition: Home Clinical Impression: Chest pain Condition: Stable Prescriptions: No Action docusate sodium 100 mg capsule 100 mg PO DAILY PRN sildenafil [Viagra] 50 mg tablet 50 mg PO DAILY PRN (Reason: sexual activity) 30 Days Qty: 7 0RF Rx Instructions: administer 30 minutes to 4 hours before activity citalopram 20 mg tablet 20 mg PO DAILY 90 Days Qty: 90 1RF (DME) FreeStyle Ly 3 Sensor Device See Rx Instructions .MEDSUPPLY Qty: 2 12RF Rx Instructions: Change every 14 days; Use as directed to check blood sugar (DME) FreeStyle Ly 2 Sensor Kit See Rx Instructions .MEDSUPPLY Qty: 2 11RF Rx Instructions: Change every 14 days; Use as directed to check blood sugar (DME) FreeStyle Ly 2 [place] Misc See Rx Instructions .MEDSUPPLY Qty: 1 0RF Rx Instructions: Use as directed to check blood sugar atorvastatin 80 mg tablet See Rx Instructions .ROUTE .COMPLEX Qty: 90 4RF Dose Instruction: TAKE 1 TABLET BY MOUTH EVERY DAY Rx Instructions: TAKE 1 TABLET BY MOUTH EVERY DAY hydralazine 25 mg tablet 25 mg PO BID 90 Days Qty: 180 1RF lisinopril 20 mg tablet See Rx Instructions .ROUTE .COMPLEX Qty: 180 1RF Dose Instruction: TAKE 1 TABLET BY MOUTH TWICE DAILY Rx Instructions: TAKE 1 TABLET BY MOUTH TWICE DAILY metoprolol tartrate 25 mg tablet See Rx Instructions .ROUTE .COMPLEX Qty: 180 1RF Dose Instruction: TAKE 1 TABLET BY MOUTH TWICE DAILY Rx Instructions: TAKE 1 TABLET BY MOUTH TWICE DAILY spironolactone 25 mg tablet 25 mg PO DAILY 90 Days Qty: 90 1RF aspirin 81 mg tablet,delayed release (DR/EC) See Rx Instructions .ROUTE .COMPLEX Qty: 90 0RF Dose Instruction: TAKE 1 TABLET BY MOUTH EVERY DAY Rx Instructions: TAKE 1 TABLET BY MOUTH EVERY DAY ergocalciferol (vitamin D2) [Vitamin D2] 1,250 mcg (50,000 unit) capsule See Rx Instructions .ROUTE .COMPLEX Qty: 12 0RF Dose Instruction: take 1 capsule BY MOUTH every week Rx Instructions: take 1 capsule BY MOUTH every week Zyrtec 10 mg capsule 10 mg PO DAILY PRN (Reason: allergy symptoms) 30 Days Qty: 30 0RF insulin lispro 100 unit/mL insulin pen See Rx Instructions SUBCUT .COMPLEX Qty: 15 0RF Rx Instructions: 6 units in am and pm plus sliding scale if needed subcutaneously daily thiamine mononitrate (vit B1) [Vitamin B-1 (mononitrate)] 100 mg tablet See Rx Instructions .ROUTE .COMPLEX Qty: 90 0RF Dose Instruction: TAKE 1 TABLET BY MOUTH EVERY DAY Rx Instructions: TAKE 1 TABLET BY MOUTH EVERY DAY clopidogrel 75 mg tablet See Rx Instructions .ROUTE .COMPLEX Qty: 90 0RF Dose Instruction: TAKE 1 TABLET BY MOUTH EVERY DAY Rx Instructions: TAKE 1 TABLET BY MOUTH EVERY DAY folic acid 1 mg tablet See Rx Instructions .ROUTE .COMPLEX Qty: 90 0RF Dose Instruction: TAKE 1 TABLET BY MOUTH EVERY DAY Rx Instructions: TAKE 1 TABLET BY MOUTH EVERY DAY pantoprazole 40 mg tablet,delayed release (DR/EC) See Rx Instructions .ROUTE .COMPLEX Qty: 90 0RF Dose Instruction: TAKE 1 TABLET BY MOUTH EVERY DAY Rx Instructions: TAKE 1 TABLET BY MOUTH EVERY DAY sitagliptin phosphate 100 mg tablet 100 mg PO DAILY 90 Days Qty: 90 0RF insulin glargine [Lantus U-100 Insulin] 100 unit/mL solution See Rx Instructions .ROUTE .COMPLEX Qty: 36 0RF Dose Instruction: INJECT 60 UNITS (0.6ML) SUBCUTANEOUSLY TWICE DAILY Rx Instructions: INJECT 60 UNITS (0.6ML) SUBCUTANEOUSLY TWICE DAILY acyclovir 800 mg tablet 800 mg PO BID 7 Days Qty: 14 1RF (DME) insulin syringe-needle U-100 1 mL 31 gauge x 5/16 syringe See Rx Instructions .Route Qty: 100 0RF Rx Instructions: As directed with lantus at bedtime diclofenac sodium 75 mg tablet,delayed release (DR/EC) 75 mg PO Q12H PRN (Reason: pain) Qty: 20 0RF Discharge Orders: Discharge ED (Routine); Ordered 05/14/25 Ordered By: Matthew Meng Referrals: Diya Payne FNP [Primary Care Provider, Family Practice] Discharge Diet: Advance as tolerated Discharge Activity: Resume usual activity Patient Instructions: Chest Pain (ED) Print Language: Kiswahili Coding Level of Care Code ED All Purpose Clerk for Skye Adams
[2025-05-14 08:53] LABS: Hematocrit 46.2 % (37-53); Hemoglobin 16.20 g/dL (11.27-16.99); Mean Corpuscular HGB Conc 35.1 g/dL (30-55); Mean Corpuscular Hemoglobin 29.2 pg (27-33); Mean Corpuscular Volume 83.4 fl (82-101); Nucleated Red Blood Cells % 0 %; Platelet Count 266 10^3/cmm (157-399); Red Blood Count 5.54 10^6/uL (3.85-5.65); White Blood Count 8.17 10^3/uL (3.29-11.43)
[2025-05-14] MEDS: LORazepam 1 MG/0.5 ML injection IVP (08:56)
[2025-05-14] MEDS: morphine 4 mg/mL SDV 1 mL IVP (08:56)
[2025-05-14 08:58] VITALS: BP 176/101; PULSE 91; RESP 16; O2SAT 98
[2025-05-14 09:14] LABS: Albumin Level 3.7 g/dL (3.5-5.2); Alkaline Phosphatase 123 U/L (40-130); Blood Urea Nitrogen 13 mg/dL (6-20); Calcium 8.8 mg/dL (8.5-10.5); Carbon Dioxide 22 mmol/L (22-29); Chloride 100 mmol/L (98-107); Globulin 2.7 g/dL (1.3-4.6); Glucose 249 mg/dL (65-115); Lipase 45 U/L (13-60); Osmolality Calculated 290 mOsm/kg (285-295); Sodium 136 mmol/L (136-145); Total Protein 6.4 g/dL (6.6-8.7); Troponin(5th) Baseline 12 ng/L (0-15)
[2025-05-14 09:18] LABS: Creatinine Clr Calc Pharmacy 203.3704
[2025-05-14 09:19] LABS: Anion Gap 17.7 (5-19); Potassium 3.7 mmol/L (3.5-5.1)
--- NOTE | 2025-05-14 09:19 | CTR_ITS ---
PROCEDURE INFORMATION: Exam: CTA Chest With Contrast Exam date and time: 05/14/2025 9:32 AM Age: 39 years old Clinical indication: Pain; Shortness of breath; Chest pressure; Additional info: SOB TECHNIQUE: Imaging protocol: Computed tomographic angiography of the chest with contrast. Exam focused on the arteries. 3D rendering (Not supervised by radiologist): MIP and/or 3D reconstructed images were created by the technologist. Radiation optimization: All CT scans at this facility use at least one of these dose optimization techniques: automated exposure control; mA and/or kV adjustment per patient size (includes targeted exams where dose is matched to clinical indication); or iterative reconstruction. Contrast material: OMNIPAQUE 350; Contrast volume: 100 ml; Contrast route: INTRAVENOUS (IV); COMPARISON: CR (CHEST, ) 05/14/2025 8:45 AM RADIATION DOSE METRICS: Total DLP (mGy-cm): 937.89 FINDINGS: Pulmonary arteries: Normal. No pulmonary emboli. Aorta: The thoracic aorta is normal in caliber without aneurysm or dissection. There is calcified plaque involving the aorta and coronary vessels. Lungs: Unremarkable. No consolidation. No masses. Pleural spaces: Unremarkable. No pneumothorax. No pleural effusion. Heart: Unremarkable. No cardiomegaly. No pericardial effusion. Lymph nodes: There are multiple small as well as a few borderline enlarged mediastinal lymph nodes. Diaphragm: There may be a small hiatal hernia. Bones/joints: Unremarkable. No acute fracture. Soft tissues: Unremarkable. CT/CT angio chest PE protcl [id number] IMPRESSION: 1. No acute findings.
[2025-05-14 09:25] LABS: Alanine Aminotransferase < 5 U/L (0-41); Aspartate Amino Transferase 5 U/L (0-40)
[2025-05-14 09:54] VITALS: PULSE 86; RESP 16; O2SAT 95
--- NOTE | 2025-05-14 10:37 | ECG_ITS ---
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
[2025-05-14 10:51] VITALS: BP 177/101; PULSE 81; RESP 16; O2SAT 96
[2025-05-14 11:03] LABS: Troponin 5 2HR 9.65 ng/L (0-15)
[2025-05-14 11:15] LABS: Troponin 5 2HR Delta -2.35 ABS# (0-10)
[2025-05-14 11:35] VITALS: BP 177/101; PULSE 73; RESP 16; O2SAT 95
== END 2025-05-14 11:36 | disposition home or self-care (01) ==
PROVIDERS: Emergency Provider Emergency Medicine; PCP Registered Nurse
DX: R07.9 Chest pain, unspecified (principal); Z79.82 Long term (current) use of aspirin; Z79.4 Long term (current) use of insulin; Z79.02 Long term (current) use of antithrombotics/antiplatelets; Z72.0 Tobacco use; E11.9 Type 2 diabetes mellitus without complications; I10 Essential (primary) hypertension
CPT/HCPCS: 36415; 36416; 71045; 71275; 80053; 82962; 83690; 84484; 85025; 85378; 93005; 96374; 96375; 99285; J2060; J2270

== ENCOUNTER → 2025-05-19 11:00 | Outpatient (BNVA) | payer BC, SELFPAY | PROVIDERS: PCP Registered Nurse; Visit Provider Registered Nurse | DX: E11.9 Type 2 diabetes mellitus without complications (principal); E11.69 Type 2 diabetes mellitus with other specified complication; E66.9 Obesity, unspecified | CPT/HCPCS: 80053; 80061; 82607; 83036; 84403; 85025 ==

== ENCOUNTER → 2025-09-20 14:48 | Outpatient (BNVA) | payer MEDICAID, SELFPAY | PROVIDERS: PCP Registered Nurse; Visit Provider Registered Nurse | DX: E11.69 Type 2 diabetes mellitus with other specified complication (principal); E66.9 Obesity, unspecified | CPT/HCPCS: 83036 ==